=== PATIENT | male | born 1955 | race Caucasian/White ===

== ENCOUNTER 2023-02-15 17:26 | Outpatient (AMB) | payer MEDICARE, MEDICAID, SELFPAY ==
--- NOTE | 2023-02-15 17:43 | A.OFFPSYCH_ITS ---
Intake Intake Visit Reasons: Chronic schizophrenia HPI- Psychiatric Chief Complaint: Chronic schizophrenia Intake Note: Patient is referred for maintenance ECT he has been at the [facility] to [facility] unit for couple of years he does have a guardian in a treatment order. HPI Narrative: The patient was referred by the [facility], Dr. Celsa Jimenez as the patient is being discharged to [facility] facility will be under the psychiatric care of Dr. Romero and there is a recommendation to continue maintenance ECT treatment which has been every 2 weeks. Patient's guardian Thor Soria telephone [phone] was contacted and treatment order by the court including ECT was reviewed. The patient has been getting bitemporal ECT at [facility] by Dr. Porsha Cox call was placed to her but at this point have not received a call back but records have been reviewed from [facility]. It appears that the patient has been getting biweekly ECT since at least 01/14/2022. Patient has reportedly done quite well with these treatments and has had no adverse effects noted. The patient is a 67-year-old male with a history of schizophrenia and OCD apparently responded well for treatment of catatonia in past history with aggression and agitation prior to admission at the [facility]. His current medications include clozapine 250 mg at bedtime Depakote 500 mg twice a day fluoxetine 40 mg daily gabapentin 400 mg 3 times a day glycopyrrolate 2 mg at bedtime lorazepam 1 mg daily in the morning I 0.5 mg at bedtime and 2 mg q.12h p.r.n.. There are no known drug allergies. Patient reportedly has diagnosis of schizophrenia OCD vascular dementia Patient has been receiving bitemporal ECT he has been getting 60 mg of succinylcholine Brevital 80 mg Toradol 15 mg labetalol 5 mg p.r.n. during the procedure Patient did have some treatments with etomidate during Brevital shortage Past Psychiatric History: See patient is originally from [place] he was at a long-term care facility in [place] had then been hospitalized at a psychiatric hospital for number of months was unable to be stabilized M was referred to the [facility] for longer term care. The patient denies prior psychiatric care but is not a reliable historian Mental Status Exam Mental Status Exam Narrative: Mental Status Exam Narrative: Patient is somewhat flat in appearance sitting in a wheelchair. Appearance: Behavior: He is cooperative and verbal psychomotor: Sitting in a wheelchair no abnormal movements noted Speech: Slowed coherent Thought proccess slowed does answer questions linear Thought content: Or denies any difficulty with ECT unclear why he is in [place] unclear why he was hospitalized denies hallucinations hearing God or the devil people conspiring against him Mood: Flat okay Affect: Appropriate to mood constricted SI:denies HI:denies VH/AH:none Delusions: None noted Insight/judgment: Limited Memory/cog: Patient does know the year month day of the week president Unable or unwilling to explain reasons for hospitalizations and treatment Results Reviewed Results Reviewed: Chemistries from September unremarkable LFTs recently within normal limits EKG QTC 452 vitamin-D level decreased TSH mildly increased 4.5 Records reviewed from [facility] and records reviewed from [facility] ECT Will trying get their initial evaluation Assessment and Plan Assessment & Plan (1) Chronic schizophrenia: Code(s): F20.9 - Schizophrenia, unspecified Plan Patient with reported chronic schizophrenia OCD history catatonia that has done well with biweekly ECT. Patient has tolerated ECT well unable to get a clear history patient's brother consents to ongoing ECT there is a treatment order by the criminal judge Would trying get baseline history which the patient is unable to give call placed to psychiatrist at [facility] to try and coordinate care. Patient appears to have a history of treatment resistant psychosis with catatonia has done well with ECT. Will try schedule unclear there has been any attempt to taper over time no behavioral difficulties noted during this appointment patient reportedly has vascular dementia has difficulty with ambulation did have prior imaging however patient has tolerated regular biweekly ECT treatments at [facility] Counseling and coordination of Care Details: I spent [65] minutes reviewing the record, seeing the patient and documenting in the medical record. Extensive records were reviewed Counseling provided to the patient/caregiver as outlined below. Addressed patient/caregiver concerns regarding current medication regime including effective adherence. Addressed patient/caregiver concerns regarding diagnosis and prognosis including accuracy of diagnosis, prognosis over time, impact of diagnosis. Addressed patient/caregiver concerns regarding impact of recent stressors. [facility] Medical History (Updated 02/15/23 @ 18:01 by Fran Flanagan MD) Vascular dementia of acute onset with behavioral disturbance Social History: Patient grew up in [place] including [place]. He states his father was doctor his mother a a psychiatrist in his brother who is guardian is also his physician patient also has a sister. He has not worked for many years Substance History: Patient denies Trauma History: Patient denies Coding Level of Care Code New Pt Level 5 (52458) Diagnoses Chronic schizophrenia F20.9
== END 2023-02-15 17:27 | disposition home or self-care (01) ==
LOC: HO.HOP 17:26
PROVIDERS: Visit Provider Psychiatry & Neurology Psychiatry
DX: F20.9 Schizophrenia, unspecified (principal)
CPT/HCPCS: 99205

== ENCOUNTER → 2023-02-15 17:26 | Outpatient (BNVA) | payer MEDICARE, MEDICAID, SELFPAY | PROVIDERS: Visit Provider Psychiatry & Neurology Psychiatry | DX: F20.9 Schizophrenia, unspecified (principal) | CPT/HCPCS: 99202 ==

== ENCOUNTER 2023-02-19 06:15 | Day surgery (SDC) | payer OTHER, MEDICARE, MEDICAID, SELFPAY ==
[2023-02-19] VITALS (7 sets, daily range): BP systolic 148–165; BP diastolic 46–79; PULSE 86–92; RESP 16–18; TEMP 36.3–37.6; O2SAT 96–100; BMI 29.2; BMI 29.3
--- NOTE | 2023-02-19 | ECG_ITS ---
Test Reason : ongoing ect new pt on antipsychotics htn Blood Pressure : / mmHG Vent. Rate : 090 BPM Atrial Rate : 090 BPM P-R Int : 166 ms QRS Dur : 088 ms QT Int : 374 ms P-R-T Axes : 057 -68 054 degrees QTc Int : 457 ms Normal sinus rhythm Left axis deviation Abnormal ECG No previous ECGs available Referred By: Fran Flanagan Electronically Signed By:ASHOK WINTERS MD
--- NOTE | 2023-02-19 06:48 | HO.ANESPROP2 ---
[facility] Active Problems Active Problems: All Active Problems (Updated 02/18/23 @ 13:47 by Joy Mccall RN) Vascular dementia of acute onset with behavioral disturbance (Acute) Past Medical History Medical History (Updated 02/18/23 @ 13:47 by Joy Mccall RN) Back pain Constipation Gait instability Hyperlipidemia Overweight Schizophrenia Trimalleolar fracture Tubular adenoma Vascular dementia of acute onset with behavioral disturbance Family History Family history of problems with anesthesia: No Surgical History History of Problems with Anesthesia: No Social History Social History Are you DNR?: No Advance Directives: No Advance Directives Information Provided: Yes Meds Allergies Allergy/AdvReac Type Severity Reaction Status Date / Time No Known Allergies Allergy Verified 02/18/23 13:43 Active Medications: Current Medications Lactated Ringer's (Lr) 1,000 mls @ 50 mls/hr IVCONT .Q20H JANICE Home Medications Medication Instructions Recorded Confirmed Last Taken Type atorvastatin 10 mg tablet 10 mg PO DAILY 02/18/23 02/18/23 Unknown History clozapine 250 mg PO DAILY 02/18/23 02/18/23 Unknown History divalproex 500 mg tablet,extended 500 mg PO BID 02/18/23 02/18/23 Unknown History release 24 hr fluoxetine 40 mg capsule 40 mg PO DAILY 02/18/23 02/18/23 Unknown History gabapentin 400 mg tablet 800 mg PO TID 02/18/23 02/18/23 Unknown History glycopyrrolate 2 mg tablet 2 mg PO BID 02/18/23 02/18/23 Unknown History lorazepam 0.5 mg tablet 0.5 mg PO QPM 02/18/23 02/18/23 Unknown History lorazepam 1 mg tablet 1 mg PO QAM 02/18/23 02/18/23 Unknown History lorazepam 2 mg tablet 2 mg PO DAILY PRN Anxiety 02/18/23 02/18/23 Unknown History polyethylene glycol 3350 17 gram 17 g PO DAILY 02/18/23 02/18/23 Unknown History oral powder packet sennosides 8.6 mg tablet (senna) 8.6 mg PO DAILY 02/18/23 02/18/23 Unknown History Exam Exam Date and Time: February 19, 2023 0648 Height,Weight and Vital Signs: Height 5 ft 9 in Weight 89.904 kg Last Vital Signs Temp 97.4 F 07/28/23 06:23 Pulse 86 02/19/23 06:23 Resp 16 02/19/23 06:23 BP 148/79 H 02/19/23 06:23 Pulse Ox 98 02/19/23 06:23 O2 Del Method Room Air 02/19/23 06:23 Airway Mallampati Class: Patient Non-Cooperative TM Dist: >3cm Neck ROM: Full Heart: rrr Lungs: cta Assessment and Plan Assessment Anesthesia Assessment: Anesthesia Plan Discussed and Chart Reviewed Final Anesthetic Review Family History of Problems with Anesthesia: No History of Problems with Anesthesia: No NPO: Yes ASA Class: III Final Preanesthetic Review: No Changes in Pt Med Stat, Meds/Allgs Chart Reviewed and Consent Obtained/Reviewed Patient Risk: Intermediate Procedure Risk: Intermediate Anesthetic Plan Anesthetic Plan: GA Disposition: Standard PACU
--- NOTE | 2023-02-19 07:07 | MHC.SHP ---
Pre-Procedural Eval Section A Date of Service: 02/19/23 Changes since office visit: No Cold of Flu in the past 2 weeks, No New Medical Problems, No Changes in Medication and No Patient answered all questions The History & Physical has been completed within 30 days and I have reviewed it.: Yes Section B Chief Complaint: schizoaffective dx Details of Present Illness: recurrent psychosis getting ect [facility] Medical History: Significant History ([facility] ) History of Previous Operations: Relevant previous surgery/procedure and date(s) (ect) Allergies: Allergies Allergy/AdvReac Type Severity Reaction Status Date / Time No Known Allergies Allergy Verified 02/18/23 13:43 Review of Systems Sugical H&P ROS: Negative: Cardiovascular and Respiratory and Yes, Specify: Neurological (ambulation difficulties) Exam Surgical H&P Exam: Normal: Heart and Normal: Lungs Plan Diagnosis/Plan: Unchanged I have reviewed the history and physical and performed a pertinent physical examination on my patient. No changes have occurred unless specified. Time Spent With Patient Time: Total time managing care of this patient today ____ minutes.
--- NOTE | 2023-02-19 07:35 | P.PCN_ITS ---
ECT Procedure Note Diagnosis/Treatment Date of Service: 02/19/23 Diagnosis: Schizoaffective Disorder Current Treatment Number: 1 Treatment: Maintenance Interval Clinical Notes: See initial evaluation patient was originally referred for outpatient ECT by the [facility] he has been getting biweekly maintenance ECT at [facility]. Patient at . [facility] no medical contraindications history of catatonia and aggression schizoaffective disorder. Case discussed [place] Time: Total time managing care of this patient today ____ minutes. ECT Settings Device: THYMATRON DGx Electrode Placement: Bitemporal Program/Pulse Width: 0.50 Energy Percent: 100 Seizure Duration By EEG (in seconds): 54 Medications Administration General Anesthetic: Etomidate (18) Muscle Relaxant: Succinylcholine (80) Airway Management Airway Management: Bag Mask Ventilation Treatment Recommendations No Changes Recommended: No change Notes: Patient tolerated ECT well given bitemporal treatment was more verbal post treatment follow-up treatment March 05 Pt Tolerated Procedure w/o Issue: Yes
[2023-02-19 08:00] LABS: MANUAL DIFF FLAG NO
[2023-02-19 08:01] LABS: Basophils Percent Auto 0.3 % (0-2); Hematocrit 37.3 % (42.0-52.0); Hemoglobin 12.7 g/dl (14.0-18.0); Imm Gran Abs Auto 0.05 X10*3/uL (0.00-0.03); Imm Gran Pct Auto 0.8 % (0.0-0.4); Lymphocytes Absolute Auto 1.7 X10*3/uL (1.2-4.9); Lymphocytes Percent Auto 27.7 % (20-40); Mean Corpuscular Hemoglobin 33.6 pg (27.0-33.0); Mean Corpuscular Volume 98.7 fL (80.0-98.0); Mean Platelet Volume 9.4 fL (9.4-12.4); Monocytes Absolute Auto 0.6 X10*3/uL (0.1-1.2); Monocytes Percent Auto 9.3 % (2-11); Neutrophils Absolute Auto 3.7 x10*3/uL (2.0-8.3); Neutrophils Percent Auto 61.9 % (45-73); Platelet Count 135 X10*3/uL (160-400); Red Blood Count 3.78 X10*6/uL (4.60-5.80); Red Cell Distribution Width 12.6 % (11.0-16.0)
[2023-02-19 08:33] LABS: Alanine Aminotransferase 14 U/L (0-40); Albumin Level 3.6 g/dL (3.5-5.0); Alkaline Phosphatase 64 U/L (39-117); Anion Gap 14 (12-20); Aspartate Amino Transferase 17 U/L (5-37); Bilirubin Total 0.9 mg/dL (0.0-1.0); Blood Urea Nitrogen 20 mg/dL (9-16); Calcium 8.3 mg/dL (8.4-10.2); Carbon Dioxide 24 mmol/L (22-29); Chloride 107 mmol/L (96-108); Creatinine Clr Calc Pharmacy 93.1; Estimated Glomerular Filt Rate > 60; Glucose Random 139 mg/dL (60-115); Potassium 4.1 mmol/L (3.3-5.1); Sodium 141 mmol/L (135-145); Total Protein 6.9 g/dL (6.5-8.0)
[2023-02-19 08:37] LABS: TSH reflex Free T4 6.53 uIU/mL (0.32-4.0)
[2023-02-19 08:50] LABS: Folate 12.2 ng/mL (> or = 4.0); Vitamin B12 482 pg/mL (200-900)
[2023-02-19 09:23] LABS: Free T4 (Free Thyroxine) 0.94 ng/dL (0.71-1.85)
== END 2023-02-19 08:58 | disposition home or self-care (01) ==
PROVIDERS: PCP Emergency Medicine; Visit Provider Psychiatry & Neurology Psychiatry
PROC: (CPT 90870; principal; 2023-02-19 07:30)
DX: F25.9 Schizoaffective disorder, unspecified (principal); E03.8 Other specified hypothyroidism; I10 Essential (primary) hypertension; E78.5 Hyperlipidemia, unspecified; E66.9 Obesity, unspecified; Z68.31 Body mass index [BMI] 31.0-31.9, adult; K59.00 Constipation, unspecified; Z79.899 Other long term (current) drug therapy
CPT/HCPCS: 36415; 80053; 82607; 82746; 84439; 84443; 85025; 90870; 93005; J0330; J1642

== ENCOUNTER → 2023-02-19 06:15 | Outpatient (BNV) | payer MEDICARE, MEDICAID, SELFPAY | PROVIDERS: PCP Emergency Medicine; Visit Provider Psychiatry & Neurology Psychiatry | DX: F25.9 Schizoaffective disorder, unspecified (principal) | CPT/HCPCS: 90870 ==

== ENCOUNTER → 2023-02-19 07:35 | Outpatient (BNV) | payer MEDICARE, MEDICAID, SELFPAY | PROVIDERS: PCP Emergency Medicine; Visit Provider Internal Medicine Cardiovascular Disease | DX: I10 Essential (primary) hypertension (principal) | CPT/HCPCS: 93010 ==

== ENCOUNTER 2023-03-05 05:57 | Day surgery (SDC) | payer OTHER, MEDICARE, MEDICAID, SELFPAY ==
[2023-03-05] VITALS (8 sets, daily range): BP systolic 112–136; BP diastolic 60–92; PULSE 82–86; RESP 12–18; TEMP 36.2–37.4; O2SAT 93–98
--- NOTE | 2023-03-05 08:19 | MHC.SHP ---
Pre-Procedural Eval Section A Date of Service: 03/05/23 The patient is an INPATIENT: No Changes since office visit: No Cold of Flu in the past 2 weeks, No New Medical Problems and No Changes in Medication The History & Physical has been completed within 30 days and I have reviewed it.: Yes Section B Chief Complaint: depressive disorder Allergies: Allergies Allergy/AdvReac Type Severity Reaction Status Date / Time No Known Allergies Allergy Verified 02/18/23 13:43 Plan I have reviewed the history and physical and performed a pertinent physical examination on my patient. No changes have occurred unless specified. Time Spent With Patient Time: Total time managing care of this patient today ____ minutes.
--- NOTE | 2023-03-05 08:19 | HO.ECTPROC ---
ECT Procedure Note Diagnosis/Treatment Date of Service: 03/05/23 Diagnosis: Schizoaffective Disorder Previous ECT Date: 02/19/23 Treatment: Maintenance Interval Clinical Notes: pt withdrawn dysphoric on arrival mostly mute Time: Total time managing care of this patient today ____ minutes. ECT Settings Device: THYMATRON DGx Electrode Placement: Bitemporal Program/Pulse Width: 0.50 Energy Percent: 100 Seizure Duration By EEG (in seconds): 38 Medications Administration General Anesthetic: Etomidate (18) Muscle Relaxant: Succinylcholine (80) Airway Management Airway Management: LMA Treatment Recommendations Notes: lma used f/u tx 2 weeks Pt Tolerated Procedure w/o Issue: Yes
--- NOTE | 2023-03-05 08:22 | HO.ANESPROP2 ---
[facility] Active Problems Active Problems: All Active Problems (Updated 02/18/23 @ 13:47 by Joy Mccall, NORBERT) Vascular dementia of acute onset with behavioral disturbance (Acute) Past Medical History Medical History (Updated 02/18/23 @ 13:47 by Joy Mccall RN) Back pain Constipation Gait instability Hyperlipidemia Overweight Schizophrenia Trimalleolar fracture Tubular adenoma Vascular dementia of acute onset with behavioral disturbance Family History Family history of problems with anesthesia: No Surgical History History of Problems with Anesthesia: No Social History Social History Advance Directives: No Advance Directives Information Provided: Yes Meds Allergies Allergy/AdvReac Type Severity Reaction Status Date / Time No Known Allergies Allergy Verified 02/18/23 13:43 Home Medications Medication Instructions Recorded Confirmed Last Taken Type atorvastatin 10 mg tablet 10 mg PO DAILY 02/18/23 02/18/23 Unknown History clozapine 250 mg PO DAILY 02/18/23 02/18/23 Unknown History divalproex 500 mg tablet,extended 500 mg PO BID 02/18/23 02/18/23 Unknown History release 24 hr fluoxetine 40 mg capsule 40 mg PO DAILY 02/18/23 02/18/23 Unknown History gabapentin 400 mg tablet 800 mg PO TID 02/18/23 02/18/23 Unknown History glycopyrrolate 2 mg tablet 2 mg PO BID 02/18/23 02/18/23 Unknown History lorazepam 0.5 mg tablet 0.5 mg PO QPM 02/18/23 02/18/23 Unknown History lorazepam 1 mg tablet 1 mg PO QAM 02/18/23 02/18/23 Unknown History lorazepam 2 mg tablet 2 mg PO DAILY PRN Anxiety 02/18/23 02/18/23 Unknown History polyethylene glycol 3350 17 gram 17 g PO DAILY 02/18/23 02/18/23 Unknown History oral powder packet sennosides 8.6 mg tablet (senna) 8.6 mg PO DAILY 02/18/23 02/18/23 Unknown History Exam Exam Date and Time: March 05, 2023821 Height,Weight and Vital Signs: Last Vital Signs Temp 97.1 F 03/05/23 06:47 Pulse 83 03/05/23 06:47 Resp 12 03/05/23 06:47 BP 112/62 03/05/23 06:47 Pulse Ox 95 03/05/23 06:47 O2 Del Method Room Air 03/05/23 06:47 Airway Mallampati Class: III TM Dist: >3cm Neck ROM: Full Assessment and Plan Assessment Anesthesia Assessment: Anesthesia Plan Discussed and Chart Reviewed Final Anesthetic Review Family History of Problems with Anesthesia: No History of Problems with Anesthesia: No NPO: Yes ASA Class: III Final Preanesthetic Review: No Changes in Pt Med Stat, Meds/Allgs Chart Reviewed, Consent Obtained/Reviewed and Anes Risks/Benef Reviewed Patient Risk: Intermediate Procedure Risk: Intermediate Anesthetic Plan Anesthetic Plan: GA Disposition: Standard PACU
--- NOTE | 2023-03-05 09:12 | HO.ANESPROP2 ---
[facility] Active Problems Active Problems: All Active Problems (Updated 02/18/23 @ 13:47 by Joy Mccall RN) Vascular dementia of acute onset with behavioral disturbance (Acute) Past Medical History Medical History (Updated 02/18/23 @ 13:47 by Joy Mccall RN) Back pain Constipation Gait instability Hyperlipidemia Overweight Schizophrenia Trimalleolar fracture Tubular adenoma Vascular dementia of acute onset with behavioral disturbance Family History Family history of problems with anesthesia: No Surgical History History of Problems with Anesthesia: No Social History Social History Advance Directives: No Advance Directives Information Provided: Yes Meds Allergies Allergy/AdvReac Type Severity Reaction Status Date / Time No Known Allergies Allergy Verified 02/18/23 13:43 Active Medications: Current Medications Ondansetron HCl (Ondansetron Hcl 4 Mg/2 Ml Vial) 4 mg IVPUSH ONCE PRN PRN Reason: Nausea and Vomiting Home Medications Medication Instructions Recorded Confirmed Last Taken Type atorvastatin 10 mg tablet 10 mg PO DAILY 02/18/23 02/18/23 Unknown History clozapine 250 mg PO DAILY 02/18/23 02/18/23 Unknown History divalproex 500 mg tablet,extended 500 mg PO BID 02/18/23 02/18/23 Unknown History release 24 hr fluoxetine 40 mg capsule 40 mg PO DAILY 02/18/23 02/18/23 Unknown History gabapentin 400 mg tablet 800 mg PO TID 02/18/23 02/18/23 Unknown History glycopyrrolate 2 mg tablet 2 mg PO BID 02/18/23 02/18/23 Unknown History lorazepam 0.5 mg tablet 0.5 mg PO QPM 02/18/23 02/18/23 Unknown History lorazepam 1 mg tablet 1 mg PO QAM 02/18/23 02/18/23 Unknown History lorazepam 2 mg tablet 2 mg PO DAILY PRN Anxiety 02/18/23 02/18/23 Unknown History polyethylene glycol 3350 17 gram 17 g PO DAILY 02/18/23 02/18/23 Unknown History oral powder packet sennosides 8.6 mg tablet (senna) 8.6 mg PO DAILY 02/18/23 02/18/23 Unknown History Exam Exam Date and Time: March 05, 2023 0912 Height,Weight and Vital Signs: Last Vital Signs Temp 99.3 F 03/05/23 08:46 Pulse 84 03/05/23 09:01 Resp 17 03/05/23 09:01 BP 129/60 03/05/23 09:01 Pulse Ox 96 03/05/23 09:01 O2 Del Method Nasal Cannula with Capnography 03/05/23 09:01 O2 Flow Rate 2 03/05/23 09:01 Airway Mallampati Class: III TM Dist: >3cm Neck ROM: Full Assessment and Plan Assessment Anesthesia Assessment: Anesthesia Plan Discussed and Chart Reviewed Final Anesthetic Review Family History of Problems with Anesthesia: No History of Problems with Anesthesia: No NPO: Yes ASA Class: III Final Preanesthetic Review: No Changes in Pt Med Stat, Meds/Allgs Chart Reviewed, Consent Obtained/Reviewed and Anes Risks/Benef Reviewed Patient Risk: Intermediate Procedure Risk: Intermediate Anesthetic Plan Anesthetic Plan: GA Disposition: Standard PACU
--- NOTE | 2023-03-05 21:58 | HO.ECTPROC ---
ECT Procedure Note Diagnosis/Treatment Date of Service: 03/05/23 Diagnosis: Schizoaffective Disorder Previous ECT Date: 02/19/23 Treatment: Maintenance Interval Clinical Notes: pt withdrawn flat mostly mute when seen Time: Total time managing care of this patient today ____ minutes. ECT Settings Device: THYMATRON DGx Electrode Placement: Bitemporal Program/Pulse Width: 0.50 Energy Percent: 100 Seizure Duration By EEG (in seconds): 54 Medications Administration General Anesthetic: Etomidate (18) Muscle Relaxant: Succinylcholine (80) Airway Management Airway Management: LMA Treatment Recommendations No Changes Recommended: No change Notes: f/u 2 weeks is in tx [facility] Pt Tolerated Procedure w/o Issue: Yes
== END 2023-03-05 09:52 | disposition home or self-care (01) ==
PROVIDERS: PCP Emergency Medicine; Visit Provider Psychiatry & Neurology Psychiatry
PROC: (CPT 90870; principal; 2023-03-05 08:00)
DX: Z79.899 Other long term (current) drug therapy (principal); F01.511 Vascular dementia, unspecified severity, with agitation; F42.9 Obsessive-compulsive disorder, unspecified; F25.9 Schizoaffective disorder, unspecified
CPT/HCPCS: 90870; J0330; J1642

== ENCOUNTER → 2023-03-05 05:57 | Outpatient (BNV) | payer MEDICARE, MEDICAID, SELFPAY | PROVIDERS: PCP Emergency Medicine; Visit Provider Psychiatry & Neurology Psychiatry | DX: F33.3 Major depressive disorder, recurrent, severe with psychotic symptoms (principal) | CPT/HCPCS: 90870 ==

== ENCOUNTER → 2023-03-19 12:00 | Day surgery (SDC) | payer MEDICARE, MEDICAID, SELFPAY ==
[2023-03-19] VITALS (7 sets, daily range): BP systolic 150–184; BP diastolic 70–89; PULSE 86–89; RESP 12–22; TEMP 36.7–37; O2SAT 96–100; BMI 30.7
--- NOTE | 2023-03-19 12:50 | HO.ANESPROP2 ---
HPI - Anesthesia Eval Consult details Narrative: Schizzoaffective Disorder PMFSH Active Problems Active Problems: All Active Problems (Updated 02/18/23 @ 13:47 by Joy Mccall RN) Vascular dementia of acute onset with behavioral disturbance (Acute) Past Medical History Medical History Back pain Constipation Gait instability Hyperlipidemia Overweight Schizophrenia Trimalleolar fracture Tubular adenoma Vascular dementia of acute onset with behavioral disturbance Family History Family history of problems with anesthesia: No Surgical History History of Problems with Anesthesia: No Meds Allergies Allergy/AdvReac Type Severity Reaction Status Date / Time No Known Allergies Allergy Verified 02/18/23 13:43 Home Medications Medication Instructions Recorded Confirmed Last Taken Type atorvastatin 10 mg tablet 10 mg PO DAILY 02/18/23 02/18/23 Unknown History clozapine 250 mg PO DAILY 02/18/23 02/18/23 Unknown History divalproex 500 mg tablet,extended 500 mg PO BID 02/18/23 02/18/23 Unknown History release 24 hr fluoxetine 40 mg capsule 40 mg PO DAILY 02/18/23 02/18/23 Unknown History gabapentin 400 mg tablet 800 mg PO TID 02/18/23 02/18/23 Unknown History glycopyrrolate 2 mg tablet 2 mg PO BID 02/18/23 02/18/23 Unknown History lorazepam 0.5 mg tablet 0.5 mg PO QPM 02/18/23 02/18/23 Unknown History lorazepam 1 mg tablet 1 mg PO QAM 02/18/23 02/18/23 Unknown History lorazepam 2 mg tablet 2 mg PO DAILY PRN Anxiety 02/18/23 02/18/23 Unknown History polyethylene glycol 3350 17 gram 17 g PO DAILY 02/18/23 02/18/23 Unknown History oral powder packet sennosides 8.6 mg tablet (senna) 8.6 mg PO DAILY 02/18/23 02/18/23 Unknown History Exam Exam Date and Time: March 19, 2023 1250 Airway Mallampati Class: II TM Dist: >3cm Neck ROM: Full Loose/Missing/Broken Teeth: Yes Heart: [id number] Lungs: cta b/l Assessment and Plan Assessment Anesthesia Assessment: Anesthesia Plan Discussed and Chart Reviewed Final Anesthetic Review Family History of Problems with Anesthesia: No History of Problems with Anesthesia: No NPO: Yes ASA Class: III Final Preanesthetic Review: No Changes in Pt Med Stat, Meds/Allgs Chart Reviewed, Consent Obtained/Reviewed and Anes Risks/Benef Reviewed Patient Risk: Intermediate Procedure Risk: Intermediate Assessment/Block/Sedation in SS: Assess/Block/Sedation-SS Anesthetic Plan Anesthetic Plan: GA and Agree w/ Assess. and Plan Disposition: Standard PACU
--- NOTE | 2023-03-19 13:37 | MHC.SHP ---
Pre-Procedural Eval Section A Date of Service: 03/19/23 The patient is an INPATIENT: No Changes since office visit: Yes Cold of Flu in the past 2 weeks, Yes New Medical Problems, Yes Changes in Medication and Yes Patient answered all questions The History & Physical has been completed within 30 days and I have reviewed it.: Yes Section B Chief Complaint: depressive disorder Details of Present Illness: Patient non-verbal Relevant Social History: None Present Medications: None Medical History: No relevant PMH History of Previous Operations: No relevant previous surgery Allergies: Allergies Allergy/AdvReac Type Severity Reaction Status Date / Time No Known Allergies Allergy Verified 02/18/23 13:43 Review of Systems Sugical H&P ROS: Negative: Constitution, Cardiovascular, Respiratory, Neurological, Psychiatric, Hem-Onc, Allergic/Immunologic, Gastrointestinal, Genitourinary, Musculoskeletal, Integumentary, Endocrine and Eyes/Ears/Nose/Throat Exam Surgical H&P Exam: Normal: HEENT, Normal: Heart, Normal: Lungs, Normal: Extremities, Normal: Abdomen, Normal: Skin and Normal: Neurological Plan Diagnosis/Plan: Unchanged I have reviewed the history and physical and performed a pertinent physical examination on my patient. No changes have occurred unless specified. Time Spent With Patient Time: Total time managing care of this patient today __15__ minutes.
--- NOTE | 2023-03-19 13:51 | HO.ECTPROC ---
ECT Procedure Note Diagnosis/Treatment Date of Service: 03/19/23 Diagnosis: Schizoaffective Disorder Previous ECT Date: 03/05/23 Treatment: Maintenance Interval Clinical Notes: The patient has been selectively mute, refused to engage Time: Total time managing care of this patient today ____ minutes. ECT Settings Device: THYMATRON DGx Electrode Placement: Bitemporal Program/Pulse Width: 0.50 Energy Percent: 100 Seizure Duration By EEG (in seconds): 29 Medications Administration General Anesthetic: Etomidate (18) Muscle Relaxant: Succinylcholine (80) Ancillary Medications Analgesics: Torodol - Pre ECT Anti-emetics: Zofran - Pre ECT Airway Management Airway Management: Bag Mask Ventilation Treatment Recommendations No Changes Recommended: No change Pt Tolerated Procedure w/o Issue: Yes
== END | disposition home or self-care (01) ==
PROVIDERS: PCP Emergency Medicine; Visit Provider Psychiatry & Neurology Psychiatry
PROC: (CPT 90870; principal; 2023-03-19 15:30)
DX: F25.9 Schizoaffective disorder, unspecified (principal); F94.0 Selective mutism; E78.5 Hyperlipidemia, unspecified; F01.511 Vascular dementia, unspecified severity, with agitation; R26.89 Other abnormalities of gait and mobility; Z99.89 Dependence on other enabling machines and devices; Z79.899 Other long term (current) drug therapy
CPT/HCPCS: 90870; J0330

== ENCOUNTER → 2023-03-19 15:30 | Outpatient (BNV) | payer MEDICARE, MEDICAID, SELFPAY | PROVIDERS: PCP Emergency Medicine; Visit Provider Psychiatry & Neurology Psychiatry | DX: F33.3 Major depressive disorder, recurrent, severe with psychotic symptoms (principal) | CPT/HCPCS: 90870 ==

== ENCOUNTER 2023-04-07 06:14 | Day surgery (SDC) | payer MEDICARE, MEDICAID, SELFPAY ==
[2023-04-07 06:54] VITALS: BP 121/75; PULSE 84; RESP 18; TEMP 36.1; O2SAT 97
--- NOTE | 2023-04-07 08:51 | P.HPSUR_ITS ---
Pre-Procedural Eval Section A Date of Service: 04/07/23 The patient is an INPATIENT: No Changes since office visit: No Cold of Flu in the past 2 weeks, No New Medical Problems, No Changes in Medication and No Patient answered all questions The History & Physical has been completed within 30 days and I have reviewed it.: No Section B Chief Complaint: depression Details of Present Illness: Patient non-verbal Relevant Social History: None Present Medications: None Medical History: No relevant PMH History of Previous Operations: No relevant previous surgery Allergies: Allergies Allergy/AdvReac Type Severity Reaction Status Date / Time No Known Allergies Allergy Verified 02/18/23 13:43 Review of Systems Sugical H&P ROS: Negative: Constitution, Cardiovascular, Respiratory, Neurologi verito, Psychiatric, Hem-Onc, Allergic/Immunologic, Gastrointestinal, Genitourinary, Musculoskeletal, Integumentary, Endocrine and Eyes/Ears/Nose/Throat Exam Surgical H&P Exam: Normal: Heart (rr) and Normal: Lungs (clear) Plan Diagnosis/Plan: Unchanged I have reviewed the history and physical and performed a pertinent physical examination on my patient. No changes have occurred unless specified. Time Spent With Patient Time: Total time managing care of this patient today ____ minutes.
[2023-04-07 08:53] VITALS: BMI 30.4
--- NOTE | 2023-04-07 08:53 | HO.ECTPROC ---
ECT Procedure Note Diagnosis/Treatment Date of Service: 04/07/23 Diagnosis: Schizoaffective Disorder Previous ECT Date: 03/19/23 Treatment: Maintenance Interval Clinical Notes: The patient minimally verbal states feels ok more withdrawn irritable pos oral td noted Time: Total time managing care of this patient today _30___ minutes. ECT Settings Device: THYMATRON DGx Electrode Placement: Bitemporal Program/Pulse Width: 0.50 Energy Percent: 100 Seizure Duration By EEG (in seconds): 38 Medications Administration General Anesthetic: Etomidate (18) Muscle Relaxant: Succinylcholine (80) Airway Management Airway Management: Bag Mask Ventilation Treatment Recommendations No Changes Recommended: No change Pt Tolerated Procedure w/o Issue: Yes
--- NOTE | 2023-04-07 09:02 | P.CONAN_ITS ---
[facility] Active Problems Active Problems: All Active Problems (Updated 02/18/23 @ 13:47 by Joy Mccall RN) Vascular dementia of acute onset with behavioral disturbance (Acute) Past Medical History Medical History Back pain Constipation Gait instability Hyperlipidemia Overweight Schizophrenia Trimalleolar fracture Tubular adenoma Vascular dementia of acute onset with behavioral disturbance Family History Family history of problems with anesthesia: No Surgical History History of Problems with Anesthesia: No Social History Social History Advance Directives: No Advance Directives Information Provided: Yes Meds Allergies Allergy/AdvReac Type Severity Reaction Status Date / Time No Known Allergies Allergy Verified 02/18/23 13:43 Active Medications: Current Medications Lactated Ringer's (Lr) 1,000 mls @ 50 mls/hr IVCONT .Q20H JANICE Home Medications Medication Instructions Recorded Confirmed Last Taken Type atorvastatin 10 mg tablet 10 mg PO DAILY 02/18/23 02/18/23 Unknown History clozapine 250 mg PO DAILY 02/18/23 02/18/23 Unknown History divalproex 500 mg tablet,extended 500 mg PO BID 02/18/23 02/18/23 Unknown History release 24 hr fluoxetine 40 mg capsule 40 mg PO DAILY 02/18/23 02/18/23 Unknown History gabapentin 400 mg tablet 800 mg PO TID 02/18/23 02/18/23 Unknown History glycopyrrolate 2 mg tablet 2 mg PO BID 02/18/23 02/18/23 Unknown History lorazepam 0.5 mg tablet 0.5 mg PO QPM 02/18/23 02/18/23 Unknown History lorazepam 1 mg tablet 1 mg PO QAM 02/18/23 02/18/23 Unknown History lorazepam 2 mg tablet 2 mg PO DAILY PRN Anxiety 02/18/23 02/18/23 Unknown History polyethylene glycol 3350 17 gram 17 g PO DAILY 02/18/23 02/18/23 Unknown History oral powder packet sennosides 8.6 mg tablet (senna) 8.6 mg PO DAILY 02/18/23 02/18/23 Unknown History Exam Exam Date and Time: April 07, 2023 0902 Height,Weight and Vital Signs: Height 5 ft 8 in Weight 90.718 kg Last Vital Signs Temp 96.9 F 04/07/23 06:54 Pulse 84 04/07/23 06:54 Resp 18 04/07/23 06:54 BP 121/75 04/07/23 06:54 Pulse Ox 97 04/07/23 06:54 O2 Del Method Room Air 04/07/23 06:54 Airway Mallampati Class: II (missing multiple, poor dentition) TM Dist: >3cm Neck ROM: Full Heart: rrr Lungs: cta Assessment and Plan Assessment Anesthesia Assessment: Anesthesia Plan Discussed and Chart Reviewed Final Anesthetic Review Family History of Problems with Anesthesia: No History of Problems with Anesthesia: No NPO: Yes ASA Class: III Final Preanesthetic Review: No Changes in Pt Med Stat, Meds/Allgs Chart Reviewed and Consent Obtained/Reviewed Patient Risk: Intermediate Procedure Risk: Intermediate Anesthetic Plan Anesthetic Plan: GA Disposition: Standard PACU
[2023-04-07 09:23] VITALS: BP 162/66; PULSE 89; RESP 16; TEMP 37; O2SAT 98
[2023-04-07 09:28] VITALS: BP 153/79; PULSE 89; RESP 20; O2SAT 96
[2023-04-07 09:33] VITALS: BP 134/48; PULSE 88; RESP 20; O2SAT 94
[2023-04-07 09:38] VITALS: BP 133/42; PULSE 87; RESP 20; O2SAT 94
[2023-04-07 09:53] VITALS: BP 126/57; PULSE 87; RESP 20; O2SAT 95
== END 2023-04-07 10:43 | disposition home or self-care (01) ==
PROVIDERS: PCP Emergency Medicine; Visit Provider Psychiatry & Neurology Psychiatry
PROC: (CPT 90870; principal; 2023-04-07 15:00)
DX: F25.1 Schizoaffective disorder, depressive type (principal); F01.511 Vascular dementia, unspecified severity, with agitation; R47.9 Unspecified speech disturbances; E78.5 Hyperlipidemia, unspecified; R26.89 Other abnormalities of gait and mobility; Z79.899 Other long term (current) drug therapy
CPT/HCPCS: 90870; J0330; J1642

== ENCOUNTER → 2023-04-07 06:14 | Outpatient (BNV) | payer MEDICARE, MEDICAID, SELFPAY | PROVIDERS: PCP Emergency Medicine; Visit Provider Psychiatry & Neurology Psychiatry | DX: F33.3 Major depressive disorder, recurrent, severe with psychotic symptoms (principal) | CPT/HCPCS: 90870 ==

== ENCOUNTER 2023-05-05 06:48 | Day surgery (SDC) | payer MEDICARE, MEDICAID, SELFPAY ==
--- NOTE | 2023-05-05 07:01 | MHC.SHP ---
Pre-Procedural Eval Section A Date of Service: 05/05/23 The patient is an INPATIENT: No Changes since office visit: No Cold of Flu in the past 2 weeks, No New Medical Problems, No Changes in Medication and No Patient answered all questions The History & Physical has been completed within 30 days and I have reviewed it.: No Section B Chief Complaint: depression Details of Present Illness: Patient non-verbal Relevant Social History: None Present Medications: None Medical History: No relevant PMH History of Previous Operations: No relevant previous surgery Allergies: Allergies Allergy/AdvReac Type Severity Reaction Status Date / Time No Known Allergies Allergy Verified 02/18/23 13:43 Review of Systems Sugical H&P ROS: Negative: Constitution, Cardiovascular, Respiratory, Neurological, Psychiatric, Hem-Onc, Allergic/Immunologic, Gastrointestinal, Genitourinary, Musculoskeletal, Integumentary, Endocrine and Eyes/Ears/Nose/Throat Exam Surgical H&P Exam: Normal: Heart (rr) and Normal: Lungs (clear) Plan Diagnosis/Plan: Unchanged I have reviewed the history and physical and performed a pertinent physical examination on my patient. No changes have occurred unless specified. Time Spent With Patient Time: Total time managing care of this patient today ____ minutes.
--- NOTE | 2023-05-05 07:02 | HO.ECTPROC ---
ECT Procedure Note Diagnosis/Treatment Date of Service: 05/07/23 Diagnosis: Schizoaffective Disorder Previous ECT Date: 04/07/23 Treatment: Maintenance Interval Clinical Notes: The patient minimally verbal states feels ok more withdrawn irritable pos oral td noted Time: Total time managing care of this patient today ____ minutes. ECT Settings Device: THYMATRON DGx Electrode Placement: Bitemporal Program/Pulse Width: 0.50 Energy Percent: 100 Seizure Duration By EEG (in seconds): 37 Medications Administration General Anesthetic: Etomidate (18) Muscle Relaxant: Succinylcholine (80) Airway Management Airway Management: Bag Mask Ventilation Treatment Recommendations No Changes Recommended: No change Notes: f/u 2 weeks Pt Tolerated Procedure w/o Issue: Yes
--- NOTE | 2023-05-05 07:05 | HO.ANESPROP2 ---
[facility] Active Problems Active Problems: All Active Problems (Updated 02/18/23 @ 13:47 by Joy Mccall RN) Vascular dementia of acute onset with behavioral disturbance (Acute) Past Medical History Medical History Back pain Constipation Gait instability Hyperlipidemia Overweight Schizophrenia Trimalleolar fracture Tubular adenoma Vascular dementia of acute onset with behavioral disturbance Family History Family history of problems with anesthesia: No Surgical History History of Problems with Anesthesia: No Social History Social History Advance Directives: No Advance Directives Information Provided: Yes Meds Allergies Allergy/AdvReac Type Severity Reaction Status Date / Time No Known Allergies Allergy Verified 02/18/23 13:43 Home Medications Medication Instructions Recorded Confirmed Last Taken Type atorvastatin 10 mg tablet 10 mg PO DAILY 02/18/23 02/18/23 Unknown History clozapine 250 mg PO DAILY 02/18/23 02/18/23 Unknown History divalproex 500 mg tablet,extended 500 mg PO BID 02/18/23 02/18/23 Unknown History release 24 hr fluoxetine 40 mg capsule 40 mg PO DAILY 02/18/23 02/18/23 Unknown History gabapentin 400 mg tablet 800 mg PO TID 02/18/23 02/18/23 Unknown History glycopyrrolate 2 mg tablet 2 mg PO BID 02/18/23 02/18/23 Unknown History lorazepam 0.5 mg tablet 0.5 mg PO QPM 02/18/23 02/18/23 Unknown History lorazepam 1 mg tablet 1 mg PO QAM 02/18/23 02/18/23 Unknown History lorazepam 2 mg tablet 2 mg PO DAILY PRN Anxiety 02/18/23 02/18/23 Unknown History polyethylene glycol 3350 17 gram 17 g PO DAILY 02/18/23 02/18/23 Unknown History oral powder packet sennosides 8.6 mg tablet (senna) 8.6 mg PO DAILY 02/18/23 02/18/23 Unknown History Exam Exam Date and Time: May 05, 2023 07 Airway Mallampati Class: II (denies anything loose, one extraction) TM Dist: >3cm Neck ROM: Full Heart: rrr Lungs: cta Assessment and Plan Assessment Anesthesia Assessment: Anesthesia Plan Discussed and Chart Reviewed Final Anesthetic Review Family History of Problems with Anesthesia: No History of Problems with Anesthesia: No NPO: Yes ASA Class: III Final Preanesthetic Review: No Changes in Pt Med Stat, Meds/Allgs Chart Reviewed and Consent Obtained/Reviewed Patient Risk: Intermediate Procedure Risk: Intermediate Anesthetic Plan Anesthetic Plan: GA Disposition: Standard PACU
[2023-05-05 07:25] VITALS: BP 188/99; PULSE 86; RESP 18; TEMP 36.4; O2SAT 100
[2023-05-05 07:30] VITALS: BP 162/87; PULSE 84; RESP 21; O2SAT 100
[2023-05-05 07:35] VITALS: BP 153/82; PULSE 84; RESP 23; O2SAT 100
[2023-05-05 07:40] VITALS: BP 160/81; PULSE 82; RESP 23; O2SAT 96
[2023-05-05 07:55] VITALS: BP 171/89; PULSE 80; RESP 20; TEMP 36.3; O2SAT 96
[2023-05-05 08:10] VITALS: BP 152/91; PULSE 80; RESP 18; TEMP 36.4; O2SAT 95
== END 2023-05-05 09:57 | disposition home or self-care (01) ==
PROVIDERS: PCP Emergency Medicine; Visit Provider Psychiatry & Neurology Psychiatry
PROC: (CPT 90870; principal; 2023-05-05 07:30)
DX: F25.9 Schizoaffective disorder, unspecified (principal); F01.518 Vascular dementia, unspecified severity, with other behavioral disturbance; R26.89 Other abnormalities of gait and mobility; E78.5 Hyperlipidemia, unspecified; Z79.899 Other long term (current) drug therapy
CPT/HCPCS: 90870; J0330; J1642

== ENCOUNTER → 2023-05-05 06:48 | Outpatient (BNV) | payer MEDICARE, MEDICAID, SELFPAY | PROVIDERS: PCP Emergency Medicine; Visit Provider Psychiatry & Neurology Psychiatry | DX: F33.3 Major depressive disorder, recurrent, severe with psychotic symptoms (principal) | CPT/HCPCS: 90870 ==

== ENCOUNTER 2023-05-19 05:57 | Day surgery (SDC) | payer MEDICARE, MEDICAID, SELFPAY ==
[2023-05-19] VITALS (7 sets, daily range): BP systolic 125–169; BP diastolic 57–76; PULSE 79–89; RESP 13–21; TEMP 36.1–36.6; O2SAT 96–100; BMI 29.2
--- NOTE | 2023-05-19 06:50 | P.CONAN_ITS ---
[facility] Active Problems Active Problems: All Active Problems (Updated 02/18/23 @ 13:47 by Joy Mccall RN) Vascular dementia of acute onset with behavioral disturbance (Acute) Past Medical History Medical History Back pain Constipation Gait instability Hyperlipidemia Overweight Schizophrenia Trimalleolar fracture Tubular adenoma Vascular dementia of acute onset with behavioral disturbance Family History Family history of problems with anesthesia: No Surgical History History of Problems with Anesthesia: No Social History Social History Advance Directives: No Advance Directives Information Provided: Yes Meds Allergies Allergy/AdvReac Type Severity Reaction Status Date / Time No Known Allergies Allergy Verified 02/18/23 13:43 Home Medications Medication Instructions Recorded Confirmed Last Taken Type atorvastatin 10 mg tablet 10 mg PO DAILY 02/18/23 02/18/23 Unknown History clozapine 250 mg PO DAILY 02/18/23 02/18/23 Unknown History divalproex 500 mg tablet,extended 500 mg PO BID 02/18/23 02/18/23 Unknown History release 24 hr fluoxetine 40 mg capsule 40 mg PO DAILY 02/18/23 02/18/23 Unknown History gabapentin 400 mg tablet 800 mg PO TID 02/18/23 02/18/23 Unknown History glycopyrrolate 2 mg tablet 2 mg PO BID 02/18/23 02/18/23 Unknown History lorazepam 0.5 mg tablet 0.5 mg PO QPM 02/18/23 02/18/23 Unknown History lorazepam 1 mg tablet 1 mg PO QAM 02/18/23 02/18/23 Unknown History lorazepam 2 mg tablet 2 mg PO DAILY PRN Anxiety 02/18/23 02/18/23 Unknown History polyethylene glycol 3350 17 gram 17 g PO DAILY 02/18/23 02/18/23 Unknown History oral powder packet sennosides 8.6 mg tablet (senna) 8.6 mg PO DAILY 02/18/23 02/18/23 Unknown History Exam Exam Date and Time: May 19, 2023 0650 Height,Weight and Vital Signs: Height 5 ft 9 in Weight 89.811 kg Last Vital Signs Temp 97 F 05/19/23 06:23 Pulse 79 05/19/23 06:23 Resp 21 H 05/19/23 06:23 BP 125/68 05/19/23 06:23 Pulse Ox 96 05/19/23 06:23 O2 Del Method Room Air 05/19/23 06:23 Airway Mallampati Class: II TM Dist: >3cm Neck ROM: Full Heart: rrr Lungs: cta Assessment and Plan Assessment Anesthesia Assessment: Anesthesia Plan Discussed and Chart Reviewed Final Anesthetic Review Family History of Problems with Anesthesia: No History of Problems with Anesthesia: No NPO: Yes ASA Class: III Final Preanesthetic Review: No Changes in Pt Med Stat, Meds/Allgs Chart Reviewed and Consent Obtained/Reviewed Patient Risk: Intermediate Procedure Risk: Intermediate Anesthetic Plan Anesthetic Plan: GA Disposition: Standard PACU
--- NOTE | 2023-05-19 06:59 | P.HPSUR_ITS ---
Pre-Procedural Eval Section A Date of Service: 05/19/23 The patient is an INPATIENT: No Changes since office visit: No Cold of Flu in the past 2 weeks, No New Medical Problems, No Changes in Medication and No Patient answered all questions The History & Physical has been completed within 30 days and I have reviewed it.: No Section B Chief Complaint: depression Details of Present Illness: Patient non-verbal Relevant Social History: None Present Medications: None Medical History: No relevant PMH History of Previous Operations: No relevant previous surgery Allergies: Allergies Allergy/AdvReac Type Severity Reaction Status Date / Time No Known Allergies Allergy Verified 02/18/23 13:43 Review of Systems Sugical H&P ROS: Negative: Constitution, Cardiovascular, Respiratory, Neurologi verito, Psychiatric, Hem-Onc, Allergic/Immunologic, Gastrointestinal, Genitourinary, Musculoskeletal, Integumentary, Endocrine and Eyes/Ears/Nose/Throat Exam Surgical H&P Exam: Normal: Heart (rr) and Normal: Lungs (clear) Plan Diagnosis/Plan: Unchanged I have reviewed the history and physical and performed a pertinent physical examination on my patient. No changes have occurred unless specified. Time Spent With Patient Time: Total time managing care of this patient today ____ minutes.
--- NOTE | 2023-05-19 07:13 | HO.ECTPROC ---
ECT Procedure Note Diagnosis/Treatment Date of Service: 05/19/23 Diagnosis: Schizoaffective Disorder Treatment: Maintenance Interval Clinical Notes: seems more stable coates affect Time: Total time managing care of this patient today ____ minutes. ECT Settings Device: THYMATRON DGx Program/Pulse Width: 0.50 Energy Percent: 100 Seizure Duration By EEG (in seconds): 37 Medications Administration General Anesthetic: Etomidate (18) Muscle Relaxant: Succinylcholine (100) Ancillary Medications Miscillaneous Medications: Flumazenil (500) Airway Management Airway Management: Bag Mask Ventilation Treatment Recommendations No Changes Recommended: No change Notes: [facility] Pt Tolerated Procedure w/o Issue: Yes
== END 2023-05-19 09:10 | disposition home or self-care (01) ==
PROVIDERS: PCP Emergency Medicine; Visit Provider Psychiatry & Neurology Psychiatry
PROC: (CPT 90870; principal; 2023-05-19 07:00)
DX: F25.9 Schizoaffective disorder, unspecified (principal); F01.518 Vascular dementia, unspecified severity, with other behavioral disturbance; R26.89 Other abnormalities of gait and mobility; E78.5 Hyperlipidemia, unspecified; Z79.899 Other long term (current) drug therapy
CPT/HCPCS: 90870; J0330; J1642

== ENCOUNTER → 2023-05-19 05:57 | Outpatient (BNV) | payer MEDICARE, MEDICAID, SELFPAY | PROVIDERS: PCP Emergency Medicine; Visit Provider Psychiatry & Neurology Psychiatry | DX: F33.3 Major depressive disorder, recurrent, severe with psychotic symptoms (principal) | CPT/HCPCS: 90870 ==

== ENCOUNTER 2023-06-02 05:59 | Day surgery (SDC) | payer MEDICARE, MEDICAID, SELFPAY ==
[2023-06-02] VITALS (8 sets, daily range): BP systolic 114–148; BP diastolic 57–71; PULSE 77–85; RESP 10–21; TEMP 36.1–36.8; O2SAT 96–99
--- NOTE | 2023-06-02 06:50 | HO.ANESPROP2 ---
[facility] Active Problems Active Problems: All Active Problems (Updated 02/18/23 @ 13:47 by Joy Mccall RN) Vascular dementia of acute onset with behavioral disturbance (Acute) Past Medical History Medical History Back pain Constipation Gait instability Hyperlipidemia Overweight Schizophrenia Trimalleolar fracture Tubular adenoma Vascular dementia of acute onset with behavioral disturbance Family History Family history of problems with anesthesia: No Surgical History History of Problems with Anesthesia: No Social History Social History Advance Directives: No Advance Directives Information Provided: Yes Meds Allergies Allergy/AdvReac Type Severity Reaction Status Date / Time No Known Allergies Allergy Verified 02/18/23 13:43 Active Medications: Current Medications Lactated Ringer's (Lr) 1,000 mls @ 50 mls/hr IVCONT .Q20H JANICE Home Medications Medication Instructions Recorded Confirmed Last Taken Type atorvastatin 10 mg tablet 10 mg PO DAILY 02/18/23 02/18/23 Unknown History clozapine 250 mg PO DAILY 02/18/23 02/18/23 Unknown History divalproex 500 mg tablet,extended 500 mg PO BID 02/18/23 02/18/23 Unknown History release 24 hr fluoxetine 40 mg capsule 40 mg PO DAILY 02/18/23 02/18/23 Unknown History gabapentin 400 mg tablet 800 mg PO TID 02/18/23 02/18/23 Unknown History glycopyrrolate 2 mg tablet 2 mg PO BID 02/18/23 02/18/23 Unknown History lorazepam 0.5 mg tablet 0.5 mg PO QPM 02/18/23 02/18/23 Unknown History lorazepam 1 mg tablet 1 mg PO QAM 02/18/23 02/18/23 Unknown History lorazepam 2 mg tablet 2 mg PO DAILY PRN Anxiety 02/18/23 02/18/23 Unknown History polyethylene glycol 3350 17 gram 17 g PO DAILY 02/18/23 02/18/23 Unknown History oral powder packet sennosides 8.6 mg tablet (senna) 8.6 mg PO DAILY 02/18/23 02/18/23 Unknown History Exam Exam Date and Time: June 02, 2023 0650 Height,Weight and Vital Signs: Last Vital Signs Temp 97 F 06/02/23 06:22 Pulse 77 06/02/23 06:22 Resp 16 06/02/23 06:22 BP 148/71 H 06/02/23 06:22 Pulse Ox 96 06/02/23 06:22 O2 Del Method Room Air 06/02/23 06:22 Airway Mallampati Class: II TM Dist: >3cm Neck ROM: Full Heart: rrr Lungs: cta Assessment and Plan Assessment Anesthesia Assessment: Anesthesia Plan Discussed and Chart Reviewed Final Anesthetic Review Family History of Problems with Anesthesia: No History of Problems with Anesthesia: No NPO: Yes ASA Class: III Final Preanesthetic Review: No Changes in Pt Med Stat, Meds/Allgs Chart Reviewed and Consent Obtained/Reviewed Patient Risk: Intermediate Procedure Risk: Intermediate Anesthetic Plan Anesthetic Plan: GA Disposition: Standard PACU
--- NOTE | 2023-06-02 06:57 | MHC.SHP ---
Pre-Procedural Eval Section A Date of Service: 06/02/23 The patient is an INPATIENT: No Changes since office visit: No Cold of Flu in the past 2 weeks, No New Medical Problems, No Changes in Medication and No Patient answered all questions The History & Physical has been completed within 30 days and I have reviewed it.: No Section B Chief Complaint: depression Details of Present Illness: Patient flat withdrawn Relevant Social History: None Present Medications: None Medical History: No relevant PMH History of Previous Operations: No relevant previous surgery Allergies: Allergies Allergy/AdvReac Type Severity Reaction Status Date / Time No Known Allergies Allergy Verified 02/18/23 13:43 Review of Systems Sugical H&P ROS: Negative: Constitution, Cardiovascular and Respiratory and Yes, Specify: Psychiatric (withdrawn) Exam Surgical H&P Exam: Normal: Heart (rr) and Normal: Lungs (clear) Plan Diagnosis/Plan: Unchanged I have reviewed the history and physical and performed a pertinent physical examination on my patient. No changes have occurred unless specified. Time Spent With Patient Time: Total time managing care of this patient today ____ minutes.
--- NOTE | 2023-06-02 07:01 | P.PCN_ITS ---
ECT Procedure Note Diagnosis/Treatment Date of Service: 06/02/23 Diagnosis: Schizoaffective Disorder Treatment: Maintenance Interval Clinical Notes: Patient appears more stable try to get further input from [facility] Time: Total time managing care of this patient today ____ minutes. ECT Settings Device: THYMATRON DGx Electrode Placement: Bitemporal Program/Pulse Width: 0.50 Energy Percent: 100 Seizure Duration By EEG (in seconds): 49 Medications Administration General Anesthetic: Etomidate (16) Muscle Relaxant: Succinylcholine (80) Ancillary Medications Miscillaneous Medications: Propofol (30) Airway Management Airway Management: Bag Mask Ventilation Treatment Recommendations Notes: inc etomidate 18 mg Pt Tolerated Procedure w/o Issue: Yes
== END 2023-06-02 08:55 | disposition home or self-care (01) ==
PROVIDERS: PCP Emergency Medicine; Visit Provider Psychiatry & Neurology Psychiatry
PROC: (CPT 90870; principal; 2023-06-02 07:30)
DX: F25.9 Schizoaffective disorder, unspecified (principal); F01.518 Vascular dementia, unspecified severity, with other behavioral disturbance; R26.89 Other abnormalities of gait and mobility; E78.5 Hyperlipidemia, unspecified; Z79.899 Other long term (current) drug therapy
CPT/HCPCS: 90870; J0330; J1642

== ENCOUNTER → 2023-06-02 05:59 | Outpatient (BNV) | payer MEDICARE, MEDICAID, SELFPAY | PROVIDERS: PCP Emergency Medicine; Visit Provider Psychiatry & Neurology Psychiatry | DX: F33.3 Major depressive disorder, recurrent, severe with psychotic symptoms (principal) | CPT/HCPCS: 90870 ==

== ENCOUNTER 2023-06-16 05:57 | Day surgery (SDC) | payer MEDICARE, MEDICAID, SELFPAY ==
[2023-06-16] VITALS (7 sets, daily range): BP systolic 114–155; BP diastolic 62–85; PULSE 80–85; RESP 15–16; TEMP 36.1–36.7; O2SAT 96–98; BMI 29.1
--- NOTE | 2023-06-16 06:52 | P.CONAN_ITS ---
[facility] Active Problems Active Problems: All Active Problems (Updated 02/18/23 @ 13:47 by Joy Mccall RN) Vascular dementia of acute onset with behavioral disturbance (Acute) Past Medical History Medical History Back pain Constipation Gait instability Hyperlipidemia Overweight Schizophrenia Trimalleolar fracture Tubular adenoma Vascular dementia of acute onset with behavioral disturbance Family History Family history of problems with anesthesia: No Surgical History History of Problems with Anesthesia: No Social History Advance Directives: No Advance Directives Information Provided: Yes Meds Allergies Allergy/AdvReac Type Severity Reaction Status Date / Time No Known Allergies Allergy Verified 02/18/23 13:43 Home Medications Medication Instructions Recorded Confirmed Last Taken Type atorvastatin 10 mg tablet 10 mg PO DAILY 02/18/23 02/18/23 Unknown History clozapine 250 mg PO DAILY 02/18/23 02/18/23 Unknown History divalproex 500 mg tablet,extended 500 mg PO BID 02/18/23 02/18/23 Unknown History release 24 hr fluoxetine 40 mg capsule 40 mg PO DAILY 02/18/23 02/18/23 Unknown History gabapentin 400 mg tablet 800 mg PO TID 02/18/23 02/18/23 Unknown History glycopyrrolate 2 mg tablet 2 mg PO BID 02/18/23 02/18/23 Unknown History lorazepam 0.5 mg tablet 0.5 mg PO QPM 02/18/23 02/18/23 Unknown History lorazepam 1 mg tablet 1 mg PO QAM 02/18/23 02/18/23 Unknown History lorazepam 2 mg tablet 2 mg PO DAILY PRN Anxiety 02/18/23 02/18/23 Unknown History polyethylene glycol 3350 17 gram 17 g PO DAILY 02/18/23 02/18/23 Unknown History oral powder packet sennosides 8.6 mg tablet (senna) 8.6 mg PO DAILY 02/18/23 02/18/23 Unknown History Exam Airway Mallampati Class: II TM Dist: >3cm Neck ROM: Full Heart: rrr Lungs: cta Assessment and Plan Assessment Anesthesia Assessment: Anesthesia Plan Discussed and Chart Reviewed Final Anesthetic Review Family History of Problems with Anesthesia: No History of Problems with Anesthesia: No NPO: Yes ASA Class: III Final Preanesthetic Review: No Changes in Pt Med Stat, Meds/Allgs Chart Reviewed and Consent Obtained/Reviewed Patient Risk: Intermediate Procedure Risk: Intermediate Anesthetic Plan Anesthetic Plan: GA Disposition: Standard PACU
--- NOTE | 2023-06-16 07:02 | MHC.SHP ---
Pre-Procedural Eval Section A Date of Service: 06/16/23 The patient is an INPATIENT: No Changes since office visit: No Cold of Flu in the past 2 weeks, No New Medical Problems, No Changes in Medication and No Patient answered all questions The History & Physical has been completed within 30 days and I have reviewed it.: Yes Section B Chief Complaint: Major depressive disorder, recurrent, severe with Allergies: Allergies Allergy/AdvReac Type Severity Reaction Status Date / Time No Known Allergies Allergy Verified 02/18/23 13:43 Plan I have reviewed the history and physical and performed a pertinent physical examination on my patient. No changes have occurred unless specified. Time Spent With Patient Time: Total time managing care of this patient today ____ minutes.
--- NOTE | 2023-06-16 07:35 | HO.ECTPROC ---
ECT Procedure Note Diagnosis/Treatment Date of Service: 06/16/23 Diagnosis: Schizoaffective Disorder Previous ECT Date: 06/02/23 Treatment: Maintenance Interval Clinical Notes: The patient reports no new symptoms, he looks internally preoccupied with delayed responses, as per his report, no changes. He can't remember side effects with previous ECT. Procedure done as per usual, no complications, he had a good seizure. We used Flumazenil today. Time: Total time managing care of this patient today __30__ minutes. ECT Settings Device: THYMATRON DGx Electrode Placement: Bitemporal Program/Pulse Width: 0.50 Energy Percent: 100 Seizure Duration By EEG (in seconds): 49 By Motor Observation (in seconds): 0 Medications Administration General Anesthetic: Etomidate (16) Muscle Relaxant: Succinylcholine (80) Ancillary Medications Analgesics: Torodol - Pre ECT Anti-emetics: Zofran - Pre ECT Miscillaneous Medications: Propofol and Flumazenil Airway Management Airway Management: Bag Mask Ventilation Treatment Recommendations No Changes Recommended: No change Pt Tolerated Procedure w/o Issue: Yes
== END 2023-06-16 10:21 | disposition home or self-care (01) ==
PROVIDERS: PCP Emergency Medicine; Visit Provider Psychiatry & Neurology Psychiatry
PROC: (CPT 90870; principal; 2023-06-16 15:30)
DX: F25.9 Schizoaffective disorder, unspecified (principal); F01.518 Vascular dementia, unspecified severity, with other behavioral disturbance; R26.89 Other abnormalities of gait and mobility; E78.5 Hyperlipidemia, unspecified; Z79.899 Other long term (current) drug therapy
CPT/HCPCS: 90870; J0330; J1642; J2704

== ENCOUNTER → 2023-06-16 05:57 | Outpatient (BNV) | payer MEDICARE, MEDICAID, SELFPAY | PROVIDERS: PCP Emergency Medicine; Visit Provider Psychiatry & Neurology Psychiatry | DX: F33.3 Major depressive disorder, recurrent, severe with psychotic symptoms (principal) | CPT/HCPCS: 90870 ==

== ENCOUNTER 2023-07-02 11:49 | Day surgery (SDC) | payer MEDICARE, MEDICAID, SELFPAY ==
[2023-07-02] VITALS (8 sets, daily range): BP systolic 126–184; BP diastolic 65–74; PULSE 87–100; RESP 16–22; TEMP 36.4–36.8; O2SAT 97–100; BMI 25.4
--- NOTE | 2023-07-02 12:55 | P.CONAN_ITS ---
FORM[facility]LY [facility] Active Problems Active Problems: All Active Problems (Updated 02/18/23 @ 13:47 by Joy Mccall RN) Vascular dementia of acute onset with behavioral disturbance (Acute) Past Medical History Medical History Gait instability Trimalleolar fracture Back pain Constipation Tubular adenoma Hyperlipidemia Overweight Schizophrenia Vascular dementia of acute onset with behavioral disturbance Family History Family history of problems with anesthesia: No Surgical History History of Problems with Anesthesia: No Social History Social History Patient Tobacco Use Status: Never used Tobacco Use of substances other than those prescribed or required for medical reasons: No Are you DNR?: No Advance Directives: No Advance Directives Information Provided: Yes Recently lost weight without trying: Unsure Nutrition Risks: No Nutritional Risk Meds Allergies Allergy/AdvReac Type Severity Reaction Status Date / Time No Known Allergies Allergy Verified 02/18/23 13:43 Home Medications Medication Instructions Recorded Confirmed Last Taken Type atorvastatin 10 mg tablet 10 mg PO DAILY 02/18/23 02/18/23 Unknown History clozapine 250 mg PO DAILY 02/18/23 02/18/23 Unknown History divalproex 500 mg tablet,extended 500 mg PO BID 02/18/23 02/18/23 Unknown History release 24 hr fluoxetine 40 mg capsule 40 mg PO DAILY 02/18/23 02/18/23 Unknown History gabapentin 400 mg tablet 800 mg PO TID 02/18/23 02/18/23 Unknown History glycopyrrolate 2 mg tablet 2 mg PO BID 02/18/23 02/18/23 Unknown History lorazepam 0.5 mg tablet 0.5 mg PO QPM 02/18/23 02/18/23 Unknown History lorazepam 1 mg tablet 1 mg PO QAM 02/18/23 02/18/23 Unknown History lorazepam 2 mg tablet 2 mg PO DAILY PRN Anxiety 02/18/23 02/18/23 Unknown History polyethylene glycol 3350 17 gram 17 g PO DAILY 02/18/23 02/18/23 Unknown History oral powder packet sennosides 8.6 mg tablet (senna) 8.6 mg PO DAILY 02/18/23 02/18/23 Unknown History Exam Height,Weight and Vital Signs: Height 5 ft 9 in Weight 78.018 kg Last Vital Signs Temp 97.7 F 07/02/23 12:14 Pulse 100 07/02/23 12:14 Resp 18 07/02/23 12:14 BP 150/71 H 07/02/23 12:14 Pulse Ox 97 07/02/23 12:14 O2 Del Method Room Air 07/02/23 12:14 Airway Mallampati Class: III TM Dist: >3cm Neck ROM: Full Heart: RRR Lungs: CTA Assessment and Plan Assessment Anesthesia Assessment: Anesthesia Plan Discussed Final Anesthetic Review Family History of Problems with Anesthesia: No History of Problems with Anesthesia: No NPO: Yes ASA Class: III Final Preanesthetic Review: Meds/Allgs Chart Reviewed, Consent Obtained/Reviewed and Anes Risks/Benef Reviewed Patient Risk: Low Procedure Risk: Low Anesthetic Plan Anesthetic Plan: GA Disposition: Standard PACU
--- NOTE | 2023-07-02 13:03 | MHC.SHP ---
Pre-Procedural Eval Section A Date of Service: 07/06/23 The patient is an INPATIENT: No Changes since office visit: No Cold of Flu in the past 2 weeks, No New Medical Problems, No Changes in Medication and No Patient answered all questions The History & Physical has been completed within 30 days and I have reviewed it.: Yes Section B Chief Complaint: Major depressive disorder, recurrent, severe with Details of Present Illness: recurrent schizoaffective dx has done well with ect for behavoiral problems Allergies: Allergies Allergy/AdvReac Type Severity Reaction Status Date / Time No Known Allergies Allergy Verified 02/18/23 13:43 Plan I have reviewed the history and physical and performed a pertinent physical examination on my patient. No changes have occurred unless specified. Time Spent With Patient Time: Total time managing care of this patient today ____ minutes.
--- NOTE | 2023-07-02 13:03 | HO.ECTPROC ---
ECT Procedure Note Diagnosis/Treatment Date of Service: 07/02/23 Diagnosis: Schizoaffective Disorder Previous ECT Date: 06/02/23 Treatment: Maintenance Interval Clinical Notes: pt withdrawn alert electively mute mission care needed to reschedule hi sect Time: Total time managing care of this patient today ____ minutes. ECT Settings Device: THYMATRON DGx Electrode Placement: Bitemporal Program/Pulse Width: 0.50 Energy Percent: 100 Seizure Duration By EEG (in seconds): 38 By Motor Observation (in seconds): 0 Medications Administration General Anesthetic: Etomidate (16) Muscle Relaxant: Succinylcholine (80) Ancillary Medications Analgesics: Torodol - Pre ECT Anti-emetics: Zofran - Pre ECT Miscillaneous Medications: Propofol and Flumazenil Airway Management Airway Management: Bag Mask Ventilation Treatment Recommendations No Changes Recommended: No change Electrode Placement: Bitemporal Program/Pulse Width: 0.50 Pt Tolerated Procedure w/o Issue: Yes
--- NOTE | 2023-07-02 13:30 | HO.POSTANES ---
Post Anesthesia Evaluation Post Anesthesia Evaluation Date of Service: 07/02/23 Vital Signs: Vital Signs Temp Pulse Resp BP Pulse Ox O2 Del Method 07/02/23 12:14 97.7 F 100 18 150/71 H 97 Room Air Anesthesia: General Mental Status: Awake Pain Control: Satisfactory Nausea/Vomiting: None Hydration: Adequate Anesthesia-Related Issues: No Anes. Related Issues
== END 2023-07-02 14:45 | disposition home or self-care (01) ==
PROVIDERS: Psychiatry & Neurology Psychiatry; PCP Emergency Medicine; Visit Provider Psychiatry & Neurology Psychiatry
PROC: (CPT 90870; principal; 2023-07-02 13:30)
DX: F25.9 Schizoaffective disorder, unspecified (principal); F01.518 Vascular dementia, unspecified severity, with other behavioral disturbance; R26.89 Other abnormalities of gait and mobility; E78.5 Hyperlipidemia, unspecified; Z79.899 Other long term (current) drug therapy
CPT/HCPCS: 90870; J0330

== ENCOUNTER → 2023-07-02 11:49 | Outpatient (BNV) | payer MEDICARE, MEDICAID, SELFPAY | PROVIDERS: PCP Emergency Medicine; Visit Provider Psychiatry & Neurology Psychiatry | DX: F33.3 Major depressive disorder, recurrent, severe with psychotic symptoms (principal) | CPT/HCPCS: 90870 ==

== ENCOUNTER 2023-07-21 05:49 | Day surgery (SDC) | payer MEDICARE, MEDICAID, SELFPAY ==
[2023-07-21] VITALS (7 sets, daily range): BP systolic 125–160; BP diastolic 49–80; PULSE 82–90; RESP 16–18; TEMP 36.1–36.3; O2SAT 95–99; BMI 25.4
--- NOTE | 2023-07-21 07:24 | MHC.SHP ---
Pre-Procedural Eval Section A Date of Service: 07/21/23 The patient is an INPATIENT: No Changes since office visit: No Cold of Flu in the past 2 weeks, No New Medical Problems, No Changes in Medication and No Patient answered all questions The History & Physical has been completed within 30 days and I have reviewed it.: No Section B Chief Complaint: depression Details of Present Illness: Patient flat withdrawn Relevant Social History: None Present Medications: None Medical History: No relevant PMH History of Previous Operations: No relevant previous surgery Allergies: Allergies Allergy/AdvReac Type Severity Reaction Status Date / Time No Known Allergies Allergy Verified 02/18/23 13:43 Review of Systems Sugical H&P ROS: Negative: Constitution, Cardiovascular and Respiratory and Yes, Specify: Psychiatric (withdrawn) Exam Surgical H&P Exam: Normal: Heart (rr) and Normal: Lungs (clear) Plan Diagnosis/Plan: Unchanged I have reviewed the history and physical and performed a pertinent physical examination on my patient. No changes have occurred unless specified. Time Spent With Patient Time: Total time managing care of this patient today ____ minutes.
--- NOTE | 2023-07-21 07:25 | P.PCN_ITS ---
ECT Procedure Note Diagnosis/Treatment Date of Service: 07/22/23 Diagnosis: Schizoaffective Disorder Treatment: Maintenance Interval Clinical Notes: Patient mostly passive and withdrawn no new medical concerns Time: Total time managing care of this patient today ____ minutes. ECT Settings Device: THYMATRON DGx Electrode Placement: Bitemporal Program/Pulse Width: 0.50 Energy Percent: 100 Seizure Duration By EEG (in seconds): 38 By Motor Observation (in seconds): 0 Medications Administration General Anesthetic: Etomidate (16) Muscle Relaxant: Succinylcholine (80) Ancillary Medications Analgesics: Torodol - Pre ECT Anti-emetics: Zofran - Pre ECT Miscillaneous Medications: Propofol and Flumazenil Airway Management Airway Management: Bag Mask Ventilation Treatment Recommendations No Changes Recommended: No change Electrode Placement: Bitemporal Program/Pulse Width: 0.50 Notes: Patient records reviewed from [facility] no adverse effects noted Pt Tolerated Procedure w/o Issue: Yes
--- NOTE | 2023-07-21 07:33 | HO.ANESPROP2 ---
FORM[facility]LY [facility], LAT[facility] Active Problems Active Problems: All Active Problems (Updated 02/18/23 @ 13:47 by Joy Mccall RN) Vascular dementia of acute onset with behavioral disturbance (Acute) Past Medical History Medical History Gait instability Trimalleolar fracture Back pain Constipation Tubular adenoma Hyperlipidemia Overweight Schizophrenia Vascular dementia of acute onset with behavioral disturbance Family History Family history of problems with anesthesia: No Surgical History History of Problems with Anesthesia: No Social History Social History Patient Tobacco Use Status: Never used Tobacco Advance Directives: No Advance Directives Information Provided: Yes Meds Allergies Allergy/AdvReac Type Severity Reaction Status Date / Time No Known Allergies Allergy Verified 02/18/23 13:43 Home Medications Medication Instructions Recorded Confirmed Last Taken Type atorvastatin 10 mg tablet 10 mg PO DAILY 02/18/23 02/18/23 Unknown History clozapine 250 mg PO DAILY 02/18/23 02/18/23 Unknown History divalproex 500 mg tablet,extended 500 mg PO BID 02/18/23 02/18/23 Unknown History release 24 hr fluoxetine 40 mg capsule 40 mg PO DAILY 02/18/23 02/18/23 Unknown History gabapentin 400 mg tablet 800 mg PO TID 02/18/23 02/18/23 Unknown History glycopyrrolate 2 mg tablet 2 mg PO BID 02/18/23 02/18/23 Unknown History lorazepam 0.5 mg tablet 0.5 mg PO QPM 02/18/23 02/18/23 Unknown History lorazepam 1 mg tablet 1 mg PO QAM 02/18/23 02/18/23 Unknown History lorazepam 2 mg tablet 2 mg PO DAILY PRN Anxiety 02/18/23 02/18/23 Unknown History polyethylene glycol 3350 17 gram 17 g PO DAILY 02/18/23 02/18/23 Unknown History oral powder packet sennosides 8.6 mg tablet (senna) 8.6 mg PO DAILY 02/18/23 02/18/23 Unknown History Exam Height,Weight and Vital Signs: Height 5 ft 9 in Weight 78.018 kg Last Vital Signs Temp 97 F 07/21/23 06:34 Pulse 82 07/21/23 06:34 Resp 16 07/21/23 06:34 BP 147/80 H 07/21/23 06:34 Pulse Ox 97 07/21/23 06:34 O2 Del Method Room Air 07/21/23 06:34 Airway Mallampati Class: III TM Dist: >3cm Neck ROM: Full Assessment and Plan Assessment Anesthesia Assessment: Anesthesia Plan Discussed and Chart Reviewed Final Anesthetic Review Family History of Problems with Anesthesia: No History of Problems with Anesthesia: No NPO: Yes ASA Class: III Final Preanesthetic Review: No Changes in Pt Med Stat, Meds/Allgs Chart Reviewed, Consent Obtained/Reviewed and Anes Risks/Benef Reviewed Patient Risk: Intermediate Procedure Risk: Intermediate Anesthetic Plan Anesthetic Plan: GA Disposition: Standard PACU
== END 2023-07-21 09:20 | disposition home or self-care (01) ==
PROVIDERS: PCP Emergency Medicine; Visit Provider Psychiatry & Neurology Psychiatry
PROC: (CPT 90870; principal; 2023-07-21 07:00)
DX: F25.9 Schizoaffective disorder, unspecified (principal); F01.518 Vascular dementia, unspecified severity, with other behavioral disturbance; E78.5 Hyperlipidemia, unspecified; R26.81 Unsteadiness on feet; G89.29 Other chronic pain; Z79.899 Other long term (current) drug therapy
CPT/HCPCS: 90870; J0330; J1642; J2405; J2704

== ENCOUNTER → 2023-07-21 05:49 | Outpatient (BNV) | payer MEDICARE, MEDICAID, SELFPAY | PROVIDERS: PCP Emergency Medicine; Visit Provider Psychiatry & Neurology Psychiatry | DX: F33.3 Major depressive disorder, recurrent, severe with psychotic symptoms (principal) | CPT/HCPCS: 90870 ==

== ENCOUNTER 2023-07-28 05:54 | Day surgery (SDC) | payer MEDICARE, MEDICAID, SELFPAY ==
[2023-07-28] VITALS (8 sets, daily range): BP systolic 125–149; BP diastolic 48–78; PULSE 77–87; RESP 16–22; TEMP 36–36.3; O2SAT 94–100; BMI 25.4
--- NOTE | 2023-07-28 06:51 | P.CONAN_ITS ---
[facility] Active Problems Active Problems: All Active Problems (Updated 02/18/23 @ 13:47 by Joy Mccall RN) Vascular dementia of acute onset with behavioral disturbance (Acute) Past Medical History Medical History Gait instability Trimalleolar fracture Back pain Constipation Tubular adenoma Hyperlipidemia Overweight Schizophrenia Vascular dementia of acute onset with behavioral disturbance Family History Family history of problems with anesthesia: No Surgical History History of Problems with Anesthesia: No Social History Social History Patient Tobacco Use Status: Never used Tobacco Use of substances other than those prescribed or required for medical reasons: No Are you DNR?: No Advance Directives: No Advance Directives Information Provided: Yes Meds Allergies Allergy/AdvReac Type Severity Reaction Status Date / Time No Known Allergies Allergy Verified 07/28/23 06:20 Home Medications Medication Instructions Recorded Confirmed Last Taken Type atorvastatin 10 mg tablet 10 mg PO DAILY 02/18/23 02/18/23 Unknown History clozapine 250 mg PO DAILY 02/18/23 02/18/23 Unknown History divalproex 500 mg tablet,extended 500 mg PO BID 02/18/23 02/18/23 Unknown History release 24 hr fluoxetine 40 mg capsule 40 mg PO DAILY 02/18/23 02/18/23 Unknown History gabapentin 400 mg tablet 800 mg PO TID 02/18/23 02/18/23 Unknown History glycopyrrolate 2 mg tablet 2 mg PO BID 02/18/23 02/18/23 Unknown History lorazepam 0.5 mg tablet 0.5 mg PO QPM 02/18/23 02/18/23 Unknown History lorazepam 1 mg tablet 1 mg PO QAM 02/18/23 02/18/23 Unknown History lorazepam 2 mg tablet 2 mg PO DAILY PRN Anxiety 02/18/23 02/18/23 Unknown History polyethylene glycol 3350 17 gram 17 g PO DAILY 02/18/23 02/18/23 Unknown History oral powder packet sennosides 8.6 mg tablet (senna) 8.6 mg PO DAILY 02/18/23 02/18/23 Unknown History Exam Height,Weight and Vital Signs: Height 5 ft 9 in Weight 78.018 kg Airway Mallampati Class: II (missing multiple teeth) TM Dist: >3cm Neck ROM: Full Heart: rrr Lungs: cta Assessment and Plan Assessment Anesthesia Assessment: Anesthesia Plan Discussed and Chart Reviewed Final Anesthetic Review Family History of Problems with Anesthesia: No History of Problems with Anesthesia: No NPO: Yes ASA Class: III Final Preanesthetic Review: No Changes in Pt Med Stat, Meds/Allgs Chart Reviewed and Consent Obtained/Reviewed Patient Risk: Intermediate Procedure Risk: Intermediate Anesthetic Plan Anesthetic Plan: GA Disposition: Standard PACU
[2023-07-28] MEDS: Lactated Ringers 1,000 ML 50 ML IVCONT (06:55)
--- NOTE | 2023-07-28 07:04 | MHC.SHP ---
Pre-Procedural Eval Section A Date of Service: 07/28/23 The patient is an INPATIENT: No Changes since office visit: No Cold of Flu in the past 2 weeks, No New Medical Problems, No Changes in Medication and No Patient answered all questions The History & Physical has been completed within 30 days and I have reviewed it.: Yes Section B Chief Complaint: Major depressive disorder, recurrent, severe with Allergies: Allergies Allergy/AdvReac Type Severity Reaction Status Date / Time No Known Allergies Allergy Verified 07/28/23 06:20 Plan I have reviewed the history and physical and performed a pertinent physical examination on my patient. No changes have occurred unless specified. Time Spent With Patient Time: Total time managing care of this patient today ____ minutes.
--- NOTE | 2023-07-28 07:25 | HO.ECTPROC ---
ECT Procedure Note Diagnosis/Treatment Date of Service: 07/28/23 Diagnosis: Catatonia and Schizoaffective Disorder Previous ECT Date: 07/21/23 Treatment: Maintenance Interval Clinical Notes: The patient was selectively mute, able to answer simple questions. Unable to answer questions regarding past ECT. Procedure done as per usual. No complications. We were unable to get information if he got his benzodiazepines last night so we decided to use Flumazenil. Time: Total time managing care of this patient today __30__ minutes. ECT Settings Device: THYMATRON DGx Electrode Placement: Bitemporal Program/Pulse Width: 0.50 Energy Percent: 100 Seizure Duration By EEG (in seconds): 42 By Motor Observation (in seconds): 24 Medications Administration General Anesthetic: Etomidate (18) Muscle Relaxant: Succinylcholine (80) Ancillary Medications Anti-emetics: Zofran - Pre ECT Miscillaneous Medications: Propofol Airway Management Airway Management: Bag Mask Ventilation Treatment Recommendations No Changes Recommended: No change Pt Tolerated Procedure w/o Issue: Yes
[2023-07-28] MEDS: LORazepam 0.5 MG TABLET PO (07:57)
== END 2023-07-28 09:00 | disposition home or self-care (01) ==
PROVIDERS: PCP Emergency Medicine; Visit Provider Psychiatry & Neurology Psychiatry
PROC: (CPT 90870; principal; 2023-07-28 07:00)
DX: F20.2 Catatonic schizophrenia (principal); F94.0 Selective mutism; F01.518 Vascular dementia, unspecified severity, with other behavioral disturbance; E78.5 Hyperlipidemia, unspecified; R26.81 Unsteadiness on feet; G89.29 Other chronic pain; M54.50 Low back pain, unspecified; Z99.89 Dependence on other enabling machines and devices; Z79.899 Other long term (current) drug therapy
CPT/HCPCS: 90870; J0330; J1642; J2405; J2704

== ENCOUNTER → 2023-07-28 05:54 | Outpatient (BNV) | payer MEDICARE, MEDICAID, SELFPAY | PROVIDERS: PCP Emergency Medicine; Visit Provider Psychiatry & Neurology Psychiatry | DX: F33.3 Major depressive disorder, recurrent, severe with psychotic symptoms (principal) | CPT/HCPCS: 90870 ==

== ENCOUNTER 2023-08-11 06:06 | Day surgery (SDC) | payer MEDICARE, MEDICAID, SELFPAY ==
[2023-08-11] VITALS (9 sets, daily range): BP systolic 103–151; BP diastolic 46–67; PULSE 77–87; RESP 16–20; TEMP 35.7–36.3; O2SAT 93–99; BMI 29.1
--- NOTE | 2023-08-11 06:55 | HO.ANESPROP2 ---
FORM[facility] Active Problems Active Problems: All Active Problems (Updated 02/18/23 @ 13:47 by Joy Mccall RN) Vascular dementia of acute onset with behavioral disturbance (Acute) Past Medical History Medical History Gait instability Trimalleolar fracture Back pain Constipation Tubular adenoma Hyperlipidemia Overweight Schizophrenia Vascular dementia of acute onset with behavioral disturbance Family History Family history of problems with anesthesia: No Surgical History History of Problems with Anesthesia: No Social History Social History Patient Tobacco Use Status: Never used Tobacco Advance Directives: No Advance Directives Information Provided: Yes Meds Allergies Allergy/AdvReac Type Severity Reaction Status Date / Time No Known Allergies Allergy Verified 07/28/23 06:20 Home Medications Medication Instructions Recorded Confirmed Last Taken Type atorvastatin 10 mg tablet 10 mg PO DAILY 02/18/23 02/18/23 Unknown History clozapine 250 mg PO DAILY 02/18/23 02/18/23 Unknown History divalproex 500 mg tablet,extended 500 mg PO BID 02/18/23 02/18/23 Unknown History release 24 hr fluoxetine 40 mg capsule 40 mg PO DAILY 02/18/23 02/18/23 Unknown History gabapentin 400 mg tablet 800 mg PO TID 02/18/23 02/18/23 Unknown History glycopyrrolate 2 mg tablet 2 mg PO BID 02/18/23 02/18/23 Unknown History lorazepam 0.5 mg tablet 0.5 mg PO QPM 02/18/23 02/18/23 Unknown History lorazepam 1 mg tablet 1 mg PO QAM 02/18/23 02/18/23 Unknown History lorazepam 2 mg tablet 2 mg PO DAILY PRN Anxiety 02/18/23 02/18/23 Unknown History polyethylene glycol 3350 17 gram 17 g PO DAILY 02/18/23 02/18/23 Unknown History oral powder packet sennosides 8.6 mg tablet (senna) 8.6 mg PO DAILY 02/18/23 02/18/23 Unknown History Exam Height,Weight and Vital Signs: Height 5 ft 9 in Weight 89.358 kg Last Vital Signs Temp 96.3 F L 08/11/23 06:29 Pulse 87 08/11/23 06:29 Resp 18 08/11/23 06:29 BP 151/63 H 08/11/23 06:29 Pulse Ox 98 08/11/23 06:29 O2 Del Method Room Air 08/11/23 06:29 Airway Mallampati Class: II TM Dist: >3cm Neck ROM: Full Heart: rrr Lungs: cta Assessment and Plan Assessment Anesthesia Assessment: Anesthesia Plan Discussed and Chart Reviewed Final Anesthetic Review Family History of Problems with Anesthesia: No History of Problems with Anesthesia: No NPO: Yes ASA Class: III Final Preanesthetic Review: No Changes in Pt Med Stat, Meds/Allgs Chart Reviewed and Consent Obtained/Reviewed Patient Risk: Intermediate Procedure Risk: Intermediate Anesthetic Plan Anesthetic Plan: GA Disposition: Standard PACU
--- NOTE | 2023-08-11 07:10 | MHC.SHP ---
Pre-Procedural Eval Section A Date of Service: 08/11/23 The History & Physical has been completed within 30 days and I have reviewed it.: No Section B Chief Complaint: Major depressive disorder, recurrent, severe with Details of Present Illness: Recurrent depression Relevant Social History: None Present Medications: see Short Stay Collaborative assessment Allergies: Allergies Allergy/AdvReac Type Severity Reaction Status Date / Time No Known Allergies Allergy Verified 07/28/23 06:20 Review of Systems Sugical H&P ROS: Negative: Cardiovascular and Respiratory and Yes, Specify: Neurological and Psychiatric Exam Surgical H&P Exam: Normal: Heart and Normal: Lungs Plan Diagnosis/Plan: Unchanged I have reviewed the history and physical and performed a pertinent physical examination on my patient. No changes have occurred unless specified. Time Spent With Patient Time: Total time managing care of this patient today ____ minutes.
--- NOTE | 2023-08-11 07:46 | HO.ECTPROC ---
ECT Procedure Note Diagnosis/Treatment Date of Service: 08/11/23 Diagnosis: Schizoaffective Disorder Previous ECT Date: 07/28/23 Treatment: Maintenance Interval Clinical Notes: The patient was selectively mute, able to answer simple questions. Unable to answer questions regarding past ECT. Procedure done as per usual. No complications. Time: Total time managing care of this patient today __30__ minutes. ECT Settings Device: THYMATRON DGx Electrode Placement: Bitemporal Program/Pulse Width: 0.50 Energy Percent: 100 Seizure Duration By EEG (in seconds): 35 Medications Administration General Anesthetic: Etomidate (18) Muscle Relaxant: Succinylcholine (80) Ancillary Medications Anti-emetics: Zofran - Pre ECT Miscillaneous Medications: Propofol Airway Management Airway Management: Bag Mask Ventilation Treatment Recommendations No Changes Recommended: No change Notes: has had biweekly maint tx Pt Tolerated Procedure w/o Issue: Yes
== END 2023-08-11 09:17 | disposition home or self-care (01) ==
PROVIDERS: PCP Emergency Medicine; Visit Provider Psychiatry & Neurology Psychiatry
PROC: (CPT 90870; principal; 2023-08-11 07:00)
DX: F25.9 Schizoaffective disorder, unspecified (principal)
CPT/HCPCS: 90870; J0330; J1642; J1885; J2405; J2704

== ENCOUNTER → 2023-08-11 06:06 | Outpatient (BNV) | payer MEDICARE, MEDICAID, SELFPAY | PROVIDERS: PCP Emergency Medicine; Visit Provider Psychiatry & Neurology Psychiatry | DX: F33.3 Major depressive disorder, recurrent, severe with psychotic symptoms (principal) | CPT/HCPCS: 90870 ==

== ENCOUNTER 2023-08-25 06:55 | Day surgery (SDC) | payer MEDICARE, MEDICAID, SELFPAY ==
[2023-08-25] VITALS (8 sets, daily range): BP systolic 117–140; BP diastolic 57–70; PULSE 81–83; RESP 15–20; TEMP 36.3–36.8; O2SAT 94–99; BMI 27.6
--- NOTE | 2023-08-25 | ECG_ITS ---
Test Reason : ect Blood Pressure : / mmHG Vent. Rate : 081 BPM Atrial Rate : 081 BPM P-R Int : 164 ms QRS Dur : 088 ms QT Int : 392 ms P-R-T Axes : 068 -76 064 degrees QTc Int : 455 ms Normal sinus rhythm Left axis deviation Abnormal ECG When compared with ECG of 19-FEB-2023 07:35, No significant change was found Referred By: Fran Flanagan Electronically Signed By:ASHOK WINTERS MD
--- NOTE | 2023-08-25 06:47 | P.CONAN_ITS ---
[facility] Active Problems Active Problems: All Active Problems (Updated 02/18/23 @ 13:47 by Joy Mccall RN) Vascular dementia of acute onset with behavioral disturbance (Acute) Past Medical History Medical History Gait instability Trimalleolar fracture Back pain Constipation Tubular adenoma Hyperlipidemia Overweight Schizophrenia Vascular dementia of acute onset with behavioral disturbance Family History Family history of problems with anesthesia: No Surgical History History of Problems with Anesthesia: No Social History Social History Patient Tobacco Use Status: Never used Tobacco Meds Allergies Allergy/AdvReac Type Severity Reaction Status Date / Time No Known Allergies Allergy Verified 07/28/23 06:20 Home Medications Medication Instructions Recorded Confirmed Last Taken Type atorvastatin 10 mg tablet 10 mg PO DAILY 02/18/23 02/18/23 Unknown History clozapine 250 mg PO DAILY 02/18/23 02/18/23 Unknown History divalproex 500 mg tablet,extended 500 mg PO BID 02/18/23 02/18/23 Unknown Hist ory release 24 hr fluoxetine 40 mg capsule 40 mg PO DAILY 02/18/23 02/18/23 Unknown History gabapentin 400 mg tablet 800 mg PO TID 02/18/23 02/18/23 Unknown History glycopyrrolate 2 mg tablet 2 mg PO BID 02/18/23 02/18/23 Unknown History lorazepam 0.5 mg tablet 0.5 mg PO QPM 02/18/23 02/18/23 Unknown History lorazepam 1 mg tablet 1 mg PO QAM 02/18/23 02/18/23 Unknown History lorazepam 2 mg tablet 2 mg PO DAILY PRN Anxiety 02/18/23 02/18/23 Unknown History polyethylene glycol 3350 17 gram 17 g PO DAILY 02/18/23 02/18/23 Unknown History oral powder packet sennosides 8.6 mg tablet (senna) 8.6 mg PO DAILY 02/18/23 02/18/23 Unknown History Exam Height,Weight and Vital Signs: Height 5 ft 9 in Weight 84.822 kg Last Vital Signs Temp 97.3 F 08/25/23 06:27 Pulse 82 08/25/23 06:27 Resp 16 08/25/23 06:27 BP 117/67 08/25/23 06:27 Pulse Ox 95 08/25/23 06:27 O2 Del Method Room Air 08/25/23 06:27 Airway Mallampati Class: II TM Dist: >3cm Neck ROM: Full Denture: Upper Heart: rrr Lungs: cta Assessment and Plan Assessment Anesthesia Assessment: Anesthesia Plan Discussed and Chart Reviewed Final Anesthetic Review Family History of Problems with Anesthesia: No History of Problems with Anesthesia: No NPO: Yes ASA Class: III Final Preanesthetic Review: No Changes in Pt Med Stat, Meds/Allgs Chart Reviewed and Consent Obtained/Reviewed Patient Risk: Intermediate Procedure Risk: Intermediate Anesthetic Plan Anesthetic Plan: GA Disposition: Standard PACU
--- NOTE | 2023-08-25 07:06 | MHC.SHP ---
Pre-Procedural Eval Section A - 24 Hr Update-Section A only Date of Service: 08/25/23 The patient is an INPATIENT: No Changes since office visit: Yes Patient answered all questions; No Cold of Flu in the past 2 weeks, No New Medical Problems and No Changes in Medication The patient has been examined within 24 hours of the surgical procedure. The History & Physical has been completed within 30 days and I have reviewed it.: No Section B - Complete if H&P > 30 days Chief Complaint: Major depressive disorder, recurrent, severe with Details of Present Illness: recurrent depression Relevant Social History: None Present Medications: see Short Stay Collaborative assessment Allergies: Allergies Allergy/AdvReac Type Severity Reaction Status Date / Time No Known Allergies Allergy Verified 07/28/23 06:20 Review of Systems Sugical H&P ROS: Negative: Cardiovascular and Respiratory and Yes, Specify: Neurological and Psychiatric Exam Surgical H&P Exam: Normal: Heart and Normal: Lungs (clear) Plan Diagnosis/Plan: Unchanged I have reviewed the history and physical and performed a pertinent physical examination on my patient. No changes have occurred unless specified. Time Spent With Patient Time: Total time managing care of this patient today ____ minutes.
--- NOTE | 2023-08-25 07:07 | HO.ECTPROC ---
ECT Procedure Note Diagnosis/Treatment Date of Service: 08/25/23 Diagnosis: Schizoaffective Disorder Previous ECT Date: 08/11/23 Treatment: Maintenance Interval Clinical Notes: The patient was selectively mute, able to answer simple questions.Knows he is here for ect seems stable not overly depressed or agitated Procedure done as per usual. No complications. Time: Total time managing care of this patient today ____ minutes. ECT Settings Device: THYMATRON DGx Electrode Placement: Bitemporal Program/Pulse Width: 0.50 Energy Percent: 100 Seizure Duration By EEG (in seconds): 24 Medications Administration General Anesthetic: Etomidate (18) Muscle Relaxant: Succinylcholine (80) Ancillary Medications Anti-emetics: Zofran - Pre ECT Miscillaneous Medications: Propofol Airway Management Airway Management: Bag Mask Ventilation Treatment Recommendations No Changes Recommended: No change Notes: has had biweekly maint tx ongoing ck labs Pt Tolerated Procedure w/o Issue: Yes
[2023-08-25] MEDS: Lactated Ringers 1,000 ML 50 ML IVCONT (07:08)
[2023-08-25 08:41] LABS: MANUAL DIFF FLAG NO
[2023-08-25 08:44] LABS: Basophils Percent Auto 0.1 % (0-2); Eosinophils Percent Auto 0.1 % (0-4); Hematocrit 37.8 % (42.0-52.0); Imm Gran Abs Auto 0.02 X10*3/uL (0.00-0.03); Imm Gran Pct Auto 0.2 % (0.0-0.4); Lymphocytes Absolute Auto 1.4 X10*3/uL (1.2-4.9); Lymphocytes Percent Auto 14.2 % (20-40); Mean Corpuscular HGB Conc 34.4 g/dl (31.0-36.0); Mean Corpuscular Hemoglobin 32.6 pg (27.0-33.0); Mean Corpuscular Volume 94.7 fL (80.0-98.0); Mean Platelet Volume 9.1 fL (9.4-12.4); Monocytes Absolute Auto 0.6 X10*3/uL (0.1-1.2); Monocytes Percent Auto 5.8 % (2-11); Neutrophils Absolute Auto 8.1 x10*3/uL (2.0-8.3); Neutrophils Percent Auto 79.6 % (45-73); Platelet Count 140 X10*3/uL (160-400); Red Blood Count 3.99 X10*6/uL (4.60-5.80); Red Cell Distribution Width 12.6 % (11.0-16.0); White Blood Count 10.1 X10*3/uL (4.8-10.8)
[2023-08-25 09:06] LABS: Alanine Aminotransferase 10 U/L (0-40); Albumin Level 3.5 g/dL (3.5-5.0); Alkaline Phosphatase 66 U/L (39-117); Anion Gap 13 (12-20); Aspartate Amino Transferase 18 U/L (5-37); Bilirubin Total 0.8 mg/dL (0.0-1.0); Blood Urea Nitrogen 19 mg/dL (9-16); Calcium 8.3 mg/dL (8.4-10.2); Carbon Dioxide 23 mmol/L (22-29); Chloride 106 mmol/L (96-108); Estimated Glomerular Filt Rate > 60; Glucose Random 111 mg/dL (60-115); Potassium 4.2 mmol/L (3.3-5.1); Sodium 138 mmol/L (135-145); Total Protein 6.8 g/dL (6.5-8.0)
[2023-08-25 09:20] LABS: TSH reflex Free T4 7.01 uIU/mL (0.32-4.0)
[2023-08-25 09:33] LABS: Folate 7.1 ng/mL (> or = 4.0); Vitamin B12 469 pg/mL (200-900)
[2023-08-25 09:51] LABS: Free T4 (Free Thyroxine) 0.98 ng/dL (0.71-1.85)
== END 2023-08-25 09:28 | disposition home or self-care (01) ==
PROVIDERS: PCP Emergency Medicine; Visit Provider Psychiatry & Neurology Psychiatry
PROC: (CPT 90870; principal; 2023-08-25 07:00)
DX: F25.9 Schizoaffective disorder, unspecified (principal); F94.0 Selective mutism; F01.518 Vascular dementia, unspecified severity, with other behavioral disturbance; E78.5 Hyperlipidemia, unspecified; R26.81 Unsteadiness on feet; Z79.899 Other long term (current) drug therapy; Z99.89 Dependence on other enabling machines and devices
CPT/HCPCS: 36415; 80053; 82607; 82746; 84439; 84443; 85025; 90870; 93005; J0330; J1642; J2405; J2704

== ENCOUNTER → 2023-08-25 06:55 | Outpatient (BNV) | payer MEDICARE, MEDICAID, SELFPAY | PROVIDERS: PCP Emergency Medicine; Visit Provider Psychiatry & Neurology Psychiatry | DX: F33.3 Major depressive disorder, recurrent, severe with psychotic symptoms (principal) | CPT/HCPCS: 90870 ==

== ENCOUNTER → 2023-08-25 07:50 | Outpatient (BNV) | payer MEDICARE, MEDICAID, SELFPAY | PROVIDERS: PCP Emergency Medicine; Visit Provider Internal Medicine Cardiovascular Disease | DX: R94.31 Abnormal electrocardiogram [ECG] [EKG] (principal) | CPT/HCPCS: 93010 ==

== ENCOUNTER 2023-09-08 06:29 | Day surgery (SDC) | payer MEDICARE, MEDICAID, SELFPAY ==
[2023-09-08] VITALS (8 sets, daily range): BP systolic 113–154; BP diastolic 65–80; PULSE 76–81; RESP 18–22; TEMP 36.1–36.3; O2SAT 97–100; BMI 25.2
--- NOTE | 2023-09-08 07:01 | P.CONAN_ITS ---
[facility] Active Problems Active Problems: All Active Problems (Updated 02/18/23 @ 13:47 by Joy Mccall RN) Vascular dementia of acute onset with behavioral disturbance (Acute) Past Medical History Medical History Gait instability Trimalleolar fracture Back pain Constipation Tubular adenoma Hyperlipidemia Overweight Schizophrenia Vascular dementia of acute onset with behavioral disturbance Family History Family history of problems with anesthesia: No Surgical History History of Problems with Anesthesia: No Social History Social History Patient Tobacco Use Status: Never used Tobacco Advance Directives: No Advance Directives Information Provided: Yes Meds Allergies Allergy/AdvReac Type Severity Reaction Status Date / Time No Known Allergies Allergy Verified 07/28/23 06:20 Active Medications: Current Medications Lactated Ringer's (Lr) 1,000 mls @ 50 mls/hr IVCONT .Q20H JANICE Home Medications Medication Instructions Recorded Confirmed Last Taken Type atorvastatin 10 mg tablet 10 mg PO DAILY 02/18/23 02/18/23 Unknown History clozapine 250 mg PO DAILY 02/18/23 02/18/23 Unknown History divalproex 500 mg tablet,extended 500 mg PO BID 02/18/23 02/18/23 Unknown History release 24 hr fluoxetine 40 mg capsule 40 mg PO DAILY 02/18/23 02/18/23 Unknown History gabapentin 400 mg tablet 800 mg PO TID 02/18/23 02/18/23 Unknown History glycopyrrolate 2 mg tablet 2 mg PO BID 02/18/23 02/18/23 Unknown History lorazepam 0.5 mg tablet 0.5 mg PO QPM 02/18/23 02/18/23 Unknown History lorazepam 1 mg tablet 1 mg PO QAM 02/18/23 02/18/23 Unknown History lorazepam 2 mg tablet 2 mg PO DAILY PRN Anxiety 02/18/23 02/18/23 Unknown History polyethylene glycol 3350 17 gram 17 g PO DAILY 02/18/23 02/18/23 Unknown History oral powder packet sennosides 8.6 mg tablet (senna) 8.6 mg PO DAILY 02/18/23 02/18/23 Unknown History Exam Height,Weight and Vital Signs: Height 5 ft 9 in Weight 77.564 kg Last Vital Signs Temp 97.1 F 02/14/24 06:31 Pulse 79 09/08/23 06:31 Resp 18 09/08/23 06:31 BP 154/78 H 09/08/23 06:31 Pulse Ox 98 09/08/23 06:31 O2 Del Method Room Air 09/08/23 06:31 Airway Mallampati Class: Patient Non-Cooperative TM Dist: >3cm Neck ROM: Full Heart: rrr Lungs: cta Assessment and Plan Assessment Anesthesia Assessment: Anesthesia Plan Discussed and Chart Reviewed Final Anesthetic Review Family History of Problems with Anesthesia: No History of Problems with Anesthesia: No NPO: Yes ASA Class: III Final Preanesthetic Review: No Changes in Pt Med Stat, Meds/Allgs Chart Reviewed and Consent Obtained/Reviewed Patient Risk: Intermediate Procedure Risk: Intermediate Anesthetic Plan Anesthetic Plan: GA Disposition: Standard PACU
--- NOTE | 2023-09-08 07:03 | MHC.SHP ---
Pre-Procedural Eval Section A - 24 Hr Update-Section A only Date of Service: 09/08/23 The patient is an INPATIENT: No Changes since office visit: Yes Patient answered all questions; No Cold of Flu in the past 2 weeks, No New Medical Problems and No Changes in Medication The patient has been examined within 24 hours of the surgical procedure. The History & Physical has been completed within 30 days and I have reviewed it.: No Section B - Complete if H&P > 30 days Chief Complaint: Major depressive disorder, recurrent, severe with Details of Present Illness: recurrent psychosis behavoiral problems Relevant Social History: None Present Medications: see Short Stay Collaborative assessment Allergies: Allergies Allergy/AdvReac Type Severity Reaction Status Date / Time No Known Allergies Allergy Verified 07/28/23 06:20 Review of Systems Sugical H&P ROS: Negative: Cardiovascular and Respiratory and Yes, Specify: Neurological and Psychiatric Exam Surgical H&P Exam: Normal: Heart and Normal: Lungs (clear) Plan Diagnosis/Plan: Unchanged I have reviewed the history and physical and performed a pertinent physical examination on my patient. No changes have occurred unless specified. [facility] Time Spent With Patient Time: Total time managing care of this patient today ____ minutes.
--- NOTE | 2023-09-08 07:06 | P.PCN_ITS ---
ECT Procedure Note Diagnosis/Treatment Date of Service: 09/08/23 Diagnosis: Schizoaffective Disorder Previous ECT Date: 08/25/23 Treatment: Maintenance Interval Clinical Notes: The patient was selectively mute, did not respond to questions did not appear to be in any distress vital signs unremarkable EKG no acute changes or arrhythmia. Mood flat not combative Procedure done as per usual. No complications. Time: Total time managing care of this patient today ____ minutes. ECT Settings Device: THYMATRON DGx Electrode Placement: Bitemporal Program/Pulse Width: 0.50 Energy Percent: 100 Seizure Duration By EEG (in seconds): 33 Medications Administration General Anesthetic: Etomidate (16) Muscle Relaxant: Succinylcholine (100) Ancillary Medications Anti-emetics: Zofran - Pre ECT Miscillaneous Medications: Propofol (30) Airway Management Airway Management: Bag Mask Ventilation Treatment Recommendations No Changes Recommended: No change Notes: has had biweekly maint tx ongoing medical records reviewed from [facility] recent labs reviewed noted increased TSH labs sent to [facility] PCP Pt Tolerated Procedure w/o Issue: Yes
== END 2023-09-08 09:00 | disposition home or self-care (01) ==
PROVIDERS: PCP Emergency Medicine; Visit Provider Psychiatry & Neurology Psychiatry
PROC: (CPT 90870; principal; 2023-09-08 07:00)
DX: F25.1 Schizoaffective disorder, depressive type (principal); Z99.89 Dependence on other enabling machines and devices; F94.0 Selective mutism; F01.518 Vascular dementia, unspecified severity, with other behavioral disturbance; E78.5 Hyperlipidemia, unspecified; R26.81 Unsteadiness on feet; Z79.899 Other long term (current) drug therapy
CPT/HCPCS: 90870; J0330; J1642; J2405; J2704

== ENCOUNTER → 2023-09-08 06:29 | Outpatient (BNV) | payer MEDICARE, MEDICAID, SELFPAY | PROVIDERS: PCP Emergency Medicine; Visit Provider Psychiatry & Neurology Psychiatry | DX: F33.3 Major depressive disorder, recurrent, severe with psychotic symptoms (principal) | CPT/HCPCS: 90870 ==

== ENCOUNTER 2023-09-22 05:47 | Day surgery (SDC) | payer MEDICARE, MEDICAID, SELFPAY ==
[2023-09-22] VITALS (9 sets, daily range): BP systolic 107–153; BP diastolic 54–76; PULSE 71–77; RESP 16–20; TEMP 36.1–36.7; O2SAT 96–99; BMI 29.5
--- NOTE | 2023-09-22 06:43 | P.CONAN_ITS ---
COUNTS INCLUDE 234 BEDS AT THE [facility] Active Problems Active Problems: All Active Problems (Updated 02/18/23 @ 13:47 by Joy Mccall RN) Vascular dementia of acute onset with behavioral disturbance (Acute) Past Medical History Medical History Gait instability Trimalleolar fracture Back pain Constipation Tubular adenoma Hyperlipidemia Overweight Schizophrenia Vascular dementia of acute onset with behavioral disturbance Family History Family history of problems with anesthesia: No Surgical History History of Problems with Anesthesia: No Social History Social History Patient Tobacco Use Status: Never used Tobacco Advance Directives: No Advance Directives Information Provided: Yes Meds Allergies Allergy/AdvReac Type Severity Reaction Status Date / Time No Known Allergies Allergy Verified 07/28/23 06:20 Active Medications: Current Medications Lactated Ringer's (Lr) 1,000 mls @ 50 mls/hr IVCONT .Q20H JANICE Home Medications Medication Instructions Recorded Confirmed Last Taken Type atorvastatin 10 mg tablet 10 mg PO DAILY 02/18/23 02/18/23 Unknown History clozapine 250 mg PO DAILY 02/18/23 02/18/23 Unknown History divalproex 500 mg tablet,extended 500 mg PO BID 02/18/23 02/18/23 Unknown History release 24 hr fluoxetine 40 mg capsule 40 mg PO DAILY 02/18/23 02/18/23 Unknown History gabapentin 400 mg tablet 800 mg PO TID 02/18/23 02/18/23 Unknown History glycopyrrolate 2 mg tablet 2 mg PO BID 02/18/23 02/18/23 Unknown History lorazepam 0.5 mg tablet 0.5 mg PO QPM 02/18/23 02/18/23 Unknown History lorazepam 1 mg tablet 1 mg PO QAM 02/18/23 02/18/23 Unknown History lorazepam 2 mg tablet 2 mg PO DAILY PRN Anxiety 02/18/23 02/18/23 Unknown History polyethylene glycol 3350 17 gram 17 g PO DAILY 02/18/23 02/18/23 Unknown History oral powder packet sennosides 8.6 mg tablet (senna) 8.6 mg PO DAILY 02/18/23 02/18/23 Unknown History Exam Height,Weight and Vital Signs: Height 5 ft 9 in Weight 90.718 kg Last Vital Signs Temp 97 F 09/22/23 06:33 Pulse 77 09/22/23 06:33 Resp 16 09/22/23 06:33 BP 153/76 H 09/22/23 06:33 Pulse Ox 98 09/22/23 06:33 O2 Del Method Room Air 09/22/23 06:33 Airway Mallampati Class: II (edentulous on top) TM Dist: >3cm Neck ROM: Full Heart: rrr Lungs: cta Assessment and Plan Assessment Anesthesia Assessment: Anesthesia Plan Discussed and Chart Reviewed Final Anesthetic Review Family History of Problems with Anesthesia: No History of Problems with Anesthesia: No NPO: Yes ASA Class: III Final Preanesthetic Review: No Changes in Pt Med Stat, Meds/Allgs Chart Reviewed and Consent Obtained/Reviewed Patient Risk: Intermediate Procedure Risk: Intermediate Anesthetic Plan Anesthetic Plan: GA Disposition: Standard PACU
--- NOTE | 2023-09-22 07:12 | MHC.SHP ---
Pre-Procedural Eval Section A - 24 Hr Update-Section A only Date of Service: 09/22/23 Section B - Complete if H&P > 30 days Chief Complaint: Major depressive disorder, recurrent, severe with Details of Present Illness: hx of schizoaffectibe dementia with agitation Relevant Social History: None Present Medications: see Short Stay Collaborative assessment Medical History: Significant History (hx maintenance ect) Allergies: Allergies Allergy/AdvReac Type Severity Reaction Status Date / Time No Known Allergies Allergy Verified 07/28/23 06:20 Review of Systems Sugical H&P ROS: Negative: Cardiovascular and Respiratory Exam Surgical H&P Exam: Normal: Heart and Normal: Lungs Plan Diagnosis/Plan: Unchanged I have reviewed the history and physical and performed a pertinent physical examination on my patient. No changes have occurred unless specified.notes from facility reviewed Time Spent With Patient Time: Total time managing care of this patient today ____ minutes.
--- NOTE | 2023-09-22 07:27 | HO.ECTPROC ---
ECT Procedure Note Diagnosis/Treatment Date of Service: 09/22/23 Diagnosis: Schizoaffective Disorder Previous ECT Date: 09/08/23 Treatment: Maintenance Interval Clinical Notes: Patient reportedly unremarkable unchanged no new medical concerns noted by facility Time: Total time managing care of this patient today ____ minutes. ECT Settings Device: THYMATRON DGx Electrode Placement: Bitemporal Program/Pulse Width: 0.50 Energy Percent: 100 Seizure Duration By EEG (in seconds): 46 Medications Administration General Anesthetic: Etomidate (16) Muscle Relaxant: Succinylcholine (100) Ancillary Medications Anti-emetics: Zofran - Pre ECT Miscillaneous Medications: Propofol (30) Airway Management Airway Management: Bag Mask Ventilation Treatment Recommendations No Changes Recommended: No change Notes: has had biweekly maint tx ongoing medical records reviewed from [facility] recent labs reviewed noted increased TSH labs sent to [facility] PCP previously f/u 2 weeks Pt Tolerated Procedure w/o Issue: Yes
== END 2023-09-22 09:43 | disposition home or self-care (01) ==
PROVIDERS: PCP Emergency Medicine; Visit Provider Psychiatry & Neurology Psychiatry
PROC: (CPT 90870; principal; 2023-09-22 07:00)
DX: F25.1 Schizoaffective disorder, depressive type (principal); F01.518 Vascular dementia, unspecified severity, with other behavioral disturbance; E78.5 Hyperlipidemia, unspecified; G89.29 Other chronic pain; E66.3 Overweight; R26.81 Unsteadiness on feet; Z79.899 Other long term (current) drug therapy; Z99.89 Dependence on other enabling machines and devices
CPT/HCPCS: 90870; J0330; J1642; J2405; J2704

== ENCOUNTER → 2023-09-22 05:47 | Outpatient (BNV) | payer MEDICARE, MEDICAID, SELFPAY | PROVIDERS: PCP Emergency Medicine; Visit Provider Psychiatry & Neurology Psychiatry | DX: F33.3 Major depressive disorder, recurrent, severe with psychotic symptoms (principal) | CPT/HCPCS: 90870 ==

== ENCOUNTER 2023-10-06 07:04 | Day surgery (SDC) | payer MEDICARE, MEDICAID, SELFPAY ==
[2023-10-06] VITALS (8 sets, daily range): BP systolic 127–138; BP diastolic 63–75; PULSE 70–79; RESP 16–20; TEMP 35.5–36.6; O2SAT 95–99; BMI 27.5
--- NOTE | 2023-10-06 07:49 | MHC.SHP ---
Pre-Procedural Eval Section A - 24 Hr Update-Section A only Date of Service: 10/06/23 The patient is an INPATIENT: No Section B - Complete if H&P > 30 days Chief Complaint: depression agitation Details of Present Illness: hx recurrent depression cognitive impairment has done better with behavio no reported side effects r Relevant Social History: None Present Medications: see Short Stay Collaborative assessment Medical History: Significant History (hx maintenance ect) Allergies: Allergies Allergy/AdvReac Type Severity Reaction Status Date / Time No Known Allergies Allergy Verified 07/28/23 06:20 Review of Systems Sugical H&P ROS: Negative: Cardiovascular and Respiratory Exam Surgical H&P Exam: Normal: Heart and Normal: Lungs Plan Diagnosis/Plan: Unchanged I have reviewed the history and physical and performed a pertinent physical examination on my patient. No changes have occurred unless specified. pt alert in good spirits Time Spent With Patient Time: Total time managing care of this patient today _30___ minutes.
--- NOTE | 2023-10-06 07:53 | HO.ECTPROC ---
ECT Procedure Note Diagnosis/Treatment Date of Service: 10/06/23 Diagnosis: Schizoaffective Disorder Previous ECT Date: 09/22/23 Treatment: Maintenance Interval Clinical Notes: Patient reportedly unremarkable unchanged no new medical concerns noted by facility pt verbal somewhat more forthcoming Time: Total time managing care of this patient today ____ minutes. ECT Settings Device: THYMATRON DGx Electrode Placement: Bitemporal Program/Pulse Width: 0.50 Energy Percent: 100 Seizure Duration By EEG (in seconds): 46 Medications Administration General Anesthetic: Etomidate (16) Muscle Relaxant: Succinylcholine (100) Ancillary Medications Anti-emetics: Zofran - Pre ECT Miscillaneous Medications: Propofol (30) Airway Management Airway Management: Bag Mask Ventilation Treatment Recommendations No Changes Recommended: No change Notes: f/u 2 weeks consider seeing if any taper is possible Pt Tolerated Procedure w/o Issue: Yes
--- NOTE | 2023-10-06 08:05 | P.CONAN_ITS ---
[facility] Active Problems Active Problems: All Active Problems (Updated 02/18/23 @ 13:47 by Joy Mccall RN) Vascular dementia of acute onset with behavioral disturbance (Acute) Past Medical History Medical History Gait instability Trimalleolar fracture Back pain Constipation Tubular adenoma Hyperlipidemia Overweight Schizophrenia Vascular dementia of acute onset with behavioral disturbance Family History Family history of problems with anesthesia: No Surgical History History of Problems with Anesthesia: No Social History Social History Patient Tobacco Use Status: Never used Tobacco Advance Directives: No Advance Directives Information Provided: Yes Meds Allergies Allergy/AdvReac Type Severity Reaction Status Date / Time No Known Allergies Allergy Verified 07/28/23 06:20 Home Medications Medication Instructions Recorded Confirmed Last Taken Type atorvastatin 10 mg tablet 10 mg PO DAILY 02/18/23 02/18/23 Unknown History clozapine 250 mg PO DAILY 02/18/23 02/18/23 Unknown History divalproex 500 mg tablet,extended 500 mg PO BID 02/18/23 02/18/23 Unknown History release 24 hr fluoxetine 40 mg capsule 40 mg PO DAILY 02/18/23 02/18/23 Unknown History gabapentin 400 mg tablet 800 mg PO TID 02/18/23 02/18/23 Unknown History glycopyrrolate 2 mg tablet 2 mg PO BID 02/18/23 02/18/23 Unknown History lorazepam 0.5 mg tablet 0.5 mg PO QPM 02/18/23 02/18/23 Unknown History lorazepam 1 mg tablet 1 mg PO QAM 02/18/23 02/18/23 Unknown History lorazepam 2 mg tablet 2 mg PO DAILY PRN Anxiety 02/18/23 02/18/23 Unknown History polyethylene glycol 3350 17 gram 17 g PO DAILY 02/18/23 02/18/23 Unknown History oral powder packet sennosides 8.6 mg tablet (senna) 8.6 mg PO DAILY 02/18/23 02/18/23 Unknown History Exam Height,Weight and Vital Signs: Height 5 ft 11 in Weight 89.358 kg Last Vital Signs Temp 96 F L 10/06/23 07:12 Pulse 70 10/06/23 07:12 Resp 18 10/06/23 07:12 BP 136/75 10/06/23 07:12 Pulse Ox 98 10/06/23 07:12 O2 Del Method Room Air 10/06/23 07:12 Airway Mallampati Class: Patient Non-Cooperative TM Dist: >3cm Neck ROM: Full Heart: rrr Lungs: cta Assessment and Plan Assessment Anesthesia Assessment: Anesthesia Plan Discussed and Chart Reviewed Final Anesthetic Review Family History of Problems with Anesthesia: No History of Problems with Anesthesia: No NPO: Yes ASA Class: III Final Preanesthetic Review: No Changes in Pt Med Stat, Meds/Allgs Chart Reviewed and Consent Obtained/Reviewed Patient Risk: Intermediate Procedure Risk: Intermediate Anesthetic Plan Anesthetic Plan: GA Disposition: Standard PACU
== END 2023-10-06 09:42 | disposition home or self-care (01) ==
PROVIDERS: PCP Emergency Medicine; Visit Provider Psychiatry & Neurology Psychiatry
PROC: (CPT 90870; principal; 2023-10-06 08:30)
DX: F25.1 Schizoaffective disorder, depressive type (principal); F01.518 Vascular dementia, unspecified severity, with other behavioral disturbance; R26.81 Unsteadiness on feet; E78.5 Hyperlipidemia, unspecified; M54.9 Dorsalgia, unspecified; E66.3 Overweight; Z79.899 Other long term (current) drug therapy
CPT/HCPCS: 90870; J0330; J1642; J2405; J2704

== ENCOUNTER → 2023-10-06 07:04 | Outpatient (BNV) | payer MEDICARE, MEDICAID, SELFPAY | PROVIDERS: PCP Emergency Medicine; Visit Provider Psychiatry & Neurology Psychiatry | DX: F33.3 Major depressive disorder, recurrent, severe with psychotic symptoms (principal) | CPT/HCPCS: 90870 ==

== ENCOUNTER → 2023-10-20 05:54 | Outpatient (BNV) | payer MEDICARE, MEDICAID, SELFPAY | PROVIDERS: PCP Emergency Medicine; Visit Provider Psychiatry & Neurology Psychiatry | DX: F33.3 Major depressive disorder, recurrent, severe with psychotic symptoms (principal) | CPT/HCPCS: 90870 ==

== ENCOUNTER → 2023-10-20 05:54 | Day surgery (SDC) | payer MEDICARE, OTHER, SELFPAY ==
[2023-10-20] VITALS (10 sets, daily range): BP systolic 118–154; BP diastolic 67–86; PULSE 74–81; RESP 16–22; TEMP 36.1–37.1; O2SAT 95–100; BMI 25.2
--- NOTE | 2023-10-20 07:05 | MHC.SHP ---
Pre-Procedural Eval Section A - 24 Hr Update-Section A only Date of Service: 10/20/23 The patient is an INPATIENT: No Section B - Complete if H&P > 30 days Chief Complaint: Major depressive disorder, recurrent, severe with Details of Present Illness: hx recurrent depression cognitive impairment has done better with behavio no reported side effects r Relevant Social History: None Present Medications: see Short Stay Collaborative assessment Medical History: Significant History (hx maintenance ect) Allergies: Allergies Allergy/AdvReac Type Severity Reaction Status Date / Time No Known Allergies Allergy Verified 07/28/23 06:20 Review of Systems Sugical H&P ROS: Negative: Cardiovascular and Respiratory Exam Surgical H&P Exam: Normal: Heart and Normal: Lungs Exam Comment: vs stable good o2 calm comfortable Plan Diagnosis/Plan: Unchanged I have reviewed the history and physical and performed a pertinent physical examination on my patient. No changes have occurred unless specified. Time Spent With Patient Time: Total time managing care of this patient today ____ minutes.
--- NOTE | 2023-10-20 07:08 | HO.ECTPROC ---
ECT Procedure Note Diagnosis/Treatment Date of Service: 10/20/23 Diagnosis: Schizoaffective Disorder Previous ECT Date: 10/06/23 Treatment: Maintenance Interval Clinical Notes: Patient appears to generally be stable he is somewhat blunted he is answering superficial questions and does engage when seen Time: Total time managing care of this patient today ____ minutes. ECT Settings Device: THYMATRON DGx Electrode Placement: Bitemporal Program/Pulse Width: 0.50 Energy Percent: 100 Seizure Duration By EEG (in seconds): 46 Medications Administration General Anesthetic: Etomidate (16) Muscle Relaxant: Succinylcholine (100) Ancillary Medications Anti-emetics: Zofran - Pre ECT Miscillaneous Medications: Propofol (30) Airway Management Airway Management: Bag Mask Ventilation Treatment Recommendations No Changes Recommended: No change Notes: f/u 2 weeks consider seeing if any taper is possible will try to coordinate with [facility] Pt Tolerated Procedure w/o Issue: Yes
--- NOTE | 2023-10-20 08:18 | P.CONAN_ITS ---
ON LICENSE OF [facility] Active Problems Active Problems: All Active Problems (Updated 02/18/23 @ 13:47 by Joy Mccall RN) Vascular dementia of acute onset with behavioral disturbance (Acute) Past Medical History Medical History Gait instability Trimalleolar fracture Back pain Constipation Tubular adenoma Hyperlipidemia Overweight Schizophrenia Vascular dementia of acute onset with behavioral disturbance Functional capacity: independent ambulation Family History Family history of problems with anesthesia: No Surgical History History of Problems with Anesthesia: No Social History Social History Patient Tobacco Use Status: Never used Tobacco Advance Directives: No Advance Directives Information Provided: Yes Meds Allergies Allergy/AdvReac Type Severity Reaction Status Date / Time No Known Allergies Allergy Verified 07/28/23 06:20 Home Medications Medication Instructions Recorded Confirmed Last Taken Type atorvastatin 10 mg tablet 10 mg PO DAILY 02/18/23 02/18/23 Unknown History clozapine 250 mg PO DAILY 02/18/23 02/18/23 Unknown History divalproex 500 mg tablet,extended 500 mg PO BID 02/18/23 02/18/23 Unknown History release 24 hr fluoxetine 40 mg capsule 40 mg PO DAILY 02/18/23 02/18/23 Unknown History gabapentin 400 mg tablet 800 mg PO TID 02/18/23 02/18/23 Unknown History glycopyrrolate 2 mg tablet 2 mg PO BID 02/18/23 02/18/23 Unknown History lorazepam 0.5 mg tablet 0.5 mg PO QPM 02/18/23 02/18/23 Unknown History lorazepam 1 mg tablet 1 mg PO QAM 02/18/23 02/18/23 Unknown History lorazepam 2 mg tablet 2 mg PO DAILY PRN Anxiety 02/18/23 02/18/23 Unknown History polyethylene glycol 3350 17 gram 17 g PO DAILY 02/18/23 02/18/23 Unknown History oral powder packet sennosides 8.6 mg tablet (senna) 8.6 mg PO DAILY 02/18/23 02/18/23 Unknown History Exam Height,Weight and Vital Signs: Height 5 ft 9 in Weight 77.564 kg Last Vital Signs Temp 98.8 F 10/20/23 07:29 Pulse 76 10/20/23 07:59 Resp 19 10/20/23 07:59 BP 126/69 10/20/23 07:59 Pulse Ox 98 10/20/23 07:59 O2 Del Method Nasal Cannula with Capnography 10/20/23 07:59 O2 Flow Rate 1 10/20/23 07:59 Airway Mallampati Class: III TM Dist: >3cm Neck ROM: Full Heart: RRR Lungs: CTA Assessment and Plan Assessment Anesthesia Assessment: Anesthesia Plan Discussed Final Anesthetic Review Family History of Problems with Anesthesia: No History of Problems with Anesthesia: No ASA Class: III Final Preanesthetic Review: Consent Obtained/Reviewed and Anes Risks/Benef Reviewed Patient Risk: Low Procedure Risk: Low Anesthetic Plan Anesthetic Plan: GA Disposition: Standard PACU
--- NOTE | 2023-10-20 08:19 | HO.POSTANES ---
Post Anesthesia Evaluation Post Anesthesia Evaluation Date of Service: 10/20/23 Vital Signs: Vital Signs Temp Pulse Resp BP Pulse Ox O2 Del Method O2 Flow Rate 10/20/23 07:59 76 19 126/69 98 Nasal Cannula with ETCO2 1 10/20/23 07:44 78 22 H 136/69 100 Nasal Cannula with ETCO2 2 10/20/23 07:39 78 21 H 135/67 100 Nasal Cannula with ETCO2 2 10/20/23 07:34 77 20 138/68 100 Nasal Cannula with ETCO2 2 10/20/23 07:29 98.8 F 74 16 146/71 H 100 Nasal Cannula with ETCO2 2 10/20/23 06:28 97 F 81 16 154/86 H 95 Room Air Anesthesia: General Mental Status: Awake Pain Control: Satisfactory Nausea/Vomiting: None Hydration: Adequate Anesthesia-Related Issues: No Anes. Related Issues
== END | disposition home or self-care (01) ==
PROVIDERS: PCP Emergency Medicine; Visit Provider Psychiatry & Neurology Psychiatry
PROC: (CPT 90870; principal; 2023-10-20 08:00)
DX: F25.9 Schizoaffective disorder, unspecified (principal); F01.518 Vascular dementia, unspecified severity, with other behavioral disturbance; R26.81 Unsteadiness on feet; E78.5 Hyperlipidemia, unspecified; M54.9 Dorsalgia, unspecified; G89.29 Other chronic pain; E66.3 Overweight; Z79.899 Other long term (current) drug therapy; Z99.89 Dependence on other enabling machines and devices
CPT/HCPCS: 90870; J0330; J1642; J2405; J2704

== ENCOUNTER 2023-11-17 05:48 | Day surgery (SDC) | payer MEDICARE, OTHER, SELFPAY ==
[2023-11-17] VITALS (8 sets, daily range): BP systolic 129–145; BP diastolic 62–76; PULSE 74–80; RESP 13–18; TEMP 36.3–36.5; O2SAT 97–99; BMI 26.3
--- NOTE | 2023-11-17 07:34 | MHC.SHP ---
Pre-Procedural Eval Section A - 24 Hr Update-Section A only Date of Service: 11/17/23 The patient is an INPATIENT: No Section B - Complete if H&P > 30 days Chief Complaint: Major depressive disorder, recurrent, severe with Details of Present Illness: hx recurrent depression cognitive impairment has done better with behavior no reported side effects has court order Relevant Social History: None Present Medications: see Short Stay Collaborative assessment Medical History: Significant History (hx maintenance ect) Allergies: Allergies Allergy/AdvReac Type Severity Reaction Status Date / Time No Known Allergies Allergy Verified 07/28/23 06:20 Review of Systems Sugical H&P ROS: Negative: Cardiovascular and Respiratory Exam Surgical H&P Exam: Normal: Heart and Normal: Lungs Exam Comment: vs stable good o2 calm comfortable Plan Diagnosis/Plan: Unchanged I have reviewed the history and physical and performed a pertinent physical examination on my patient. No changes have occurred unless specified. Time Spent With Patient Time: Total time managing care of this patient today ____ minutes.
--- NOTE | 2023-11-17 07:57 | HO.ECTPROC ---
ECT Procedure Note Diagnosis/Treatment Date of Service: 11/17/23 Diagnosis: Schizoaffective Disorder Previous ECT Date: 10/06/23 Treatment: Maintenance Interval Clinical Notes: Patient appears to generally be stable he is somewhat blunted he is answering superficial questions and does engage when seen Time: Total time managing care of this patient today ____ minutes. ECT Settings Device: THYMATRON DGx Electrode Placement: Bitemporal Program/Pulse Width: 0.50 Energy Percent: 100 Seizure Duration By EEG (in seconds): 39 Medications Administration General Anesthetic: Etomidate (16) Muscle Relaxant: Succinylcholine (100) Ancillary Medications Anti-emetics: Zofran - Pre ECT Miscillaneous Medications: Propofol (30) Airway Management Airway Management: Bag Mask Ventilation Treatment Recommendations No Changes Recommended: No change Notes: f/u 2 weeks consider seeing if any taper is possible will try to coordinate with [facility] Pt Tolerated Procedure w/o Issue: Yes
--- NOTE | 2023-11-17 08:35 | P.CONAN_ITS ---
[facility] Active Problems Active Problems: All Active Problems Vascular dementia of acute onset with behavioral disturbance (Acute) Past Medical History Medical History Gait instability Trimalleolar fracture Back pain Constipation Tubular adenoma Hyperlipidemia Overweight Schizophrenia Vascular dementia of acute onset with behavioral disturbance Functional capacity: independent ambulation Family History Family history of problems with anesthesia: No Surgical History History of Problems with Anesthesia: No Social History Social History Patient Tobacco Use Status: Never used Tobacco Advance Directives: No Advance Directives Information Provided: Yes Meds Allergies Allergy/AdvReac Type Severity Reaction Status Date / Time No Known Allergies Allergy Verified 07/28/23 06:20 Home Medications ?Medication ?Instructions ?Recorded ?Confirmed ?Last Taken ?Type atorvastatin 10 mg tablet 10 mg PO DAILY 02/18/23 02/18/23 Unknown History clozapine 250 mg PO DAILY 02/18/23 02/18/23 Unknown History divalproex 500 mg tablet,extended 500 mg PO BID 02/18/23 02/18/23 Unknown History release 24 hr fluoxetine 40 mg capsule 40 mg PO DAILY 02/18/23 02/18/23 Unknown History gabapentin 400 mg tablet 800 mg PO TID 02/18/23 02/18/23 Unknown History glycopyrrolate 2 mg tablet 2 mg PO BID 02/18/23 02/18/23 Unknown History lorazepam 0.5 mg tablet 0.5 mg PO QPM 02/18/23 02/18/23 Unknown History lorazepam 1 mg tablet 1 mg PO QAM 02/18/23 02/18/23 Unknown History lorazepam 2 mg tablet 2 mg PO DAILY PRN Anxiety 02/18/23 02/18/23 Unknown History polyethylene glycol 3350 17 gram 17 g PO DAILY 02/18/23 02/18/23 Unknown History oral powder packet sennosides 8.6 mg tablet (senna) 8.6 mg PO DAILY 02/18/23 02/18/23 Unknown History Exam Height,Weight and Vital Signs: Height 5 ft 9 in Weight 80.739 kg Last Vital Signs Temp 97.7 F 11/17/23 07:54 Pulse 78 11/17/23 08:24 Resp 16 11/17/23 08:24 BP 144/62 H 11/17/23 08:24 Pulse Ox 98 11/17/23 08:24 O2 Del Method Room Air 11/17/23 08:24 O2 Flow Rate 2 11/17/23 08:04 Airway Mallampati Class: III TM Dist: >3cm Neck ROM: Full Heart: RRR Lungs: CTA Assessment and Plan Assessment Anesthesia Assessment: Anesthesia Plan Discussed Final Anesthetic Review Family History of Problems with Anesthesia: No History of Problems with Anesthesia: No NPO: Yes ASA Class: III Final Preanesthetic Review: Meds/Allgs Chart Reviewed, Consent Obtained/Reviewed and Anes Risks/Benef Reviewed Patient Risk: Low Procedure Risk: Low Anesthetic Plan Anesthetic Plan: GA Disposition: Standard PACU and Inp. Admit - Standard Bed
--- NOTE | 2023-11-17 08:39 | HO.POSTANES ---
Post Anesthesia Evaluation Post Anesthesia Evaluation Date of Service: 11/17/23 Vital Signs: Vital Signs Temp Pulse Resp BP Pulse Ox O2 Del Method O2 Flow Rate 11/17/23 08:24 78 16 144/62 H 98 Room Air 11/17/23 08:09 79 16 137/74 98 Room Air 11/17/23 08:04 80 16 145/67 H 99 Nasal Cannula with ETCO2 2 11/17/23 07:59 80 13 135/67 99 Nasal Cannula with ETCO2 2 11/17/23 07:54 97.7 F 79 16 137/75 99 Nasal Cannula with ETCO2 2 11/17/23 06:32 97.4 F 80 16 129/64 97 Room Air Anesthesia: General Mental Status: Awake Pain Control: Satisfactory Nausea/Vomiting: None Hydration: Adequate Anesthesia-Related Issues: No Anes. Related Issues
== END 2023-11-17 09:18 | disposition home or self-care (01) ==
PROVIDERS: PCP Emergency Medicine; Visit Provider Psychiatry & Neurology Psychiatry
PROC: (CPT 90870; principal; 2023-11-17 07:00)
DX: F25.9 Schizoaffective disorder, unspecified (principal); F01.518 Vascular dementia, unspecified severity, with other behavioral disturbance; R26.81 Unsteadiness on feet; E78.5 Hyperlipidemia, unspecified; M54.9 Dorsalgia, unspecified; G89.29 Other chronic pain; E66.3 Overweight; Z79.899 Other long term (current) drug therapy; Z99.89 Dependence on other enabling machines and devices
CPT/HCPCS: 90870; J0330; J1642; J2405

== ENCOUNTER → 2023-11-17 05:48 | Outpatient (BNV) | payer MEDICARE, MEDICAID, SELFPAY | PROVIDERS: PCP Emergency Medicine; Visit Provider Psychiatry & Neurology Psychiatry | DX: F33.3 Major depressive disorder, recurrent, severe with psychotic symptoms (principal) | CPT/HCPCS: 90870 ==

== ENCOUNTER 2023-12-15 05:44 | Day surgery (SDC) | payer MEDICARE, MEDICAID, SELFPAY ==
--- NOTE | 2023-12-15 06:47 | MHC.SHP ---
Pre-Procedural Eval Section A - 24 Hr Update-Section A only Date of Service: 12/15/23 The patient is an INPATIENT: No The patient has been examined within 24 hours of the surgical procedure. The History & Physical has been completed within 30 days and I have reviewed it.: Yes Section B - Complete if H&P > 30 days Chief Complaint: Major depressive disorder, recurrent, severe with Details of Present Illness: pt says he's here for ECT Relevant Social History: None Allergies: Allergies Allergy/AdvReac Type Severity Reaction Status Date / Time No Known Allergies Allergy Verified 07/28/23 06:20 Review of Systems Sugical H&P ROS: Negative: Cardiovascular, Respiratory and Eyes/Ears/Nose/Throat Exam Surgical H&P Exam: Normal: Heart and Normal: Lungs Plan Diagnosis/Plan: Unchanged I have reviewed the history and physical and performed a pertinent physical examination on my patient. No changes have occurred unless specified. continue with maintenance ECT Time Spent With Patient Time: Total time managing care of this patient today ____ minutes.
--- NOTE | 2023-12-15 06:52 | HO.ANESPROP2 ---
[facility] Active Problems Active Problems: All Active Problems Vascular dementia of acute onset with behavioral disturbance (Acute) Past Medical History Medical History Gait instability Trimalleolar fracture Back pain Constipation Tubular adenoma Hyperlipidemia Overweight Schizophrenia Vascular dementia of acute onset with behavioral disturbance Family History Family history of problems with anesthesia: No Surgical History History of Problems with Anesthesia: No Social History Social History Patient Tobacco Use Status: Never used Tobacco Advance Directives: No Advance Directives Information Provided: Yes Meds Allergies Allergy/AdvReac Type Severity Reaction Status Date / Time No Known Allergies Allergy Verified 07/28/23 06:20 Home Medications ?Medication ?Instructions ?Recorded ?Confirmed ?Last Taken ?Type atorvastatin 10 mg tablet 10 mg PO DAILY 02/18/23 02/18/23 Unknown History clozapine 250 mg PO DAILY 02/18/23 02/18/23 Unknown History divalproex 500 mg tablet,extended 500 mg PO BID 02/18/23 02/18/23 Unknown History release 24 hr fluoxetine 40 mg capsule 40 mg PO DAILY 02/18/23 02/18/23 Unknown History gabapentin 400 mg tablet 800 mg PO TID 02/18/23 02/18/23 Unknown History glycopyrrolate 2 mg tablet 2 mg PO BID 02/18/23 02/18/23 Unknown History lorazepam 0.5 mg tablet 0.5 mg PO QPM 02/18/23 02/18/23 Unknown History lorazepam 1 mg tablet 1 mg PO QAM 02/18/23 02/18/23 Unknown History lorazepam 2 mg tablet 2 mg PO DAILY PRN Anxiety 02/18/23 02/18/23 Unknown History polyethylene glycol 3350 17 gram 17 g PO DAILY 02/18/23 02/18/23 Unknown History oral powder packet sennosides 8.6 mg tablet (senna) 8.6 mg PO DAILY 02/18/23 02/18/23 Unknown History Exam Airway Mallampati Class: II TM Dist: >3cm Neck ROM: Full Heart: rrr Lungs: cta Assessment and Plan Assessment Anesthesia Assessment: Anesthesia Plan Discussed and Chart Reviewed Final Anesthetic Review Family History of Problems with Anesthesia: No History of Problems with Anesthesia: No NPO: Yes ASA Class: III Final Preanesthetic Review: No Changes in Pt Med Stat, Meds/Allgs Chart Reviewed and Consent Obtained/Reviewed Patient Risk: Intermediate Procedure Risk: Intermediate Anesthetic Plan Anesthetic Plan: GA Disposition: Standard PACU
--- NOTE | 2023-12-15 06:53 | HO.ECTPROC ---
ECT Procedure Note Diagnosis/Treatment Date of Service: 12/15/23 Diagnosis: Schizoaffective Disorder Previous ECT Date: 11/17/23 Treatment: Maintenance Interval Clinical Notes: pt blunted; knows name, , that he's getting ECT Time: Total time managing care of this patient today ____ minutes. ECT Settings Device: THYMATRON DGx Electrode Placement: Bitemporal Program/Pulse Width: 0.50 Energy Percent: 100 Seizure Duration By EEG (in seconds): 36 Medications Administration General Anesthetic: Etomidate (16) Muscle Relaxant: Succinylcholine (100) Ancillary Medications Anti-emetics: Zofran - Pre ECT Airway Management Airway Management: Bag Mask Ventilation Treatment Recommendations No Changes Recommended: No change Electrode Placement: Bitemporal Program/Pulse Width: 0.50 Energy Percent: 100 Notes: continue same parameters; seizure 36 seconds (did not require propofol) will schedule next ECT in 4 weeks Pt Tolerated Procedure w/o Issue: Yes
[2023-12-15 06:58] VITALS: BP 132/52; PULSE 72; RESP 18; TEMP 36.4; O2SAT 97; BMI 27.2
[2023-12-15] MEDS: Lactated Ringers 1,000 ML 50 ML IVCONT (07:00)
[2023-12-15 07:40] VITALS: BP 147/47; PULSE 85; RESP 16; TEMP 37; O2SAT 98
[2023-12-15 07:45] VITALS: BP 122/56; PULSE 84; RESP 18; O2SAT 98
[2023-12-15 07:50] VITALS: BP 132/53; PULSE 84; RESP 18; O2SAT 96
[2023-12-15 07:55] VITALS: BP 130/42; PULSE 83; RESP 18; O2SAT 95
[2023-12-15 08:10] VITALS: BP 105/66; PULSE 80; RESP 18; TEMP 37; O2SAT 97
== END 2023-12-15 08:41 | disposition home or self-care (01) ==
PROVIDERS: PCP Emergency Medicine; Visit Provider Psychiatry & Neurology Psychiatry
PROC: (CPT 90870; principal; 2023-12-15 07:00)
DX: F20.9 Schizophrenia, unspecified (principal); F01.518 Vascular dementia, unspecified severity, with other behavioral disturbance; E78.5 Hyperlipidemia, unspecified; R26.89 Other abnormalities of gait and mobility; Z79.899 Other long term (current) drug therapy; Z98.890 Other specified postprocedural states; Z79.02 Long term (current) use of antithrombotics/antiplatelets
CPT/HCPCS: 90870; J0330; J1596; J1642; J1885; J2405; J2704

== ENCOUNTER → 2023-12-15 05:44 | Outpatient (BNV) | payer MEDICARE, MEDICAID, SELFPAY | PROVIDERS: PCP Emergency Medicine; Visit Provider Psychiatry & Neurology Psychiatry | DX: F33.3 Major depressive disorder, recurrent, severe with psychotic symptoms (principal) | CPT/HCPCS: 90870 ==

== ENCOUNTER 2024-01-12 05:40 | Day surgery (SDC) | payer MEDICARE, MEDICAID, SELFPAY ==
[2024-01-12] VITALS (10 sets, daily range): BP systolic 102–161; BP diastolic 62–79; PULSE 69–102; RESP 12–20; TEMP 36.4–36.8; O2SAT 92–100
--- NOTE | 2024-01-12 07:06 | MHC.SHP ---
Pre-Procedural Eval Section A - 24 Hr Update-Section A only Date of Service: 01/12/24 The patient is an INPATIENT: No The patient has been examined within 24 hours of the surgical procedure. The History & Physical has been completed within 30 days and I have reviewed it.: Yes Section B - Complete if H&P > 30 days Chief Complaint: Major depressive disorder, recurrent, severe with Details of Present Illness: [facility] Relevant Social History: None Allergies: Allergies Allergy/AdvReac Type Severity Reaction Status Date / Time No Known Allergies Allergy Verified 07/28/23 06:20 Review of Systems Sugical H&P ROS: Negative: Cardiovascular, Respiratory and Eyes/Ears/Nose/Throat Exam Surgical H&P Exam: Normal: Heart and Normal: Lungs Plan Diagnosis/Plan: Unchanged I have reviewed the history and physical and performed a pertinent physical examination on my patient. No changes have occurred unless specified. Time Spent With Patient Time: Total time managing care of this patient today ____ minutes.
--- NOTE | 2024-01-12 07:07 | HO.ECTPROC ---
ECT Procedure Note Diagnosis/Treatment Date of Service: 01/12/24 Diagnosis: Schizoaffective Disorder Previous ECT Date: 12/15/23 Treatment: Maintenance Interval Clinical Notes: pt blunted; knows name, , that he's getting ECT difficult to engage with [facility] calls placed Time: Total time managing care of this patient today ____ minutes. ECT Settings Device: THYMATRON DGx Electrode Placement: Bitemporal Program/Pulse Width: 0.50 Energy Percent: 100 Seizure Duration By EEG (in seconds): 32 Medications Administration General Anesthetic: Etomidate (16) Muscle Relaxant: Succinylcholine (100) Ancillary Medications Anti-emetics: Zofran - Pre ECT Airway Management Airway Management: Bag Mask Ventilation Treatment Recommendations No Changes Recommended: No change Electrode Placement: Bitemporal Program/Pulse Width: 0.50 Energy Percent: 100 Notes: trying to reach psych provider see if we can taper ect further ben order expires in january Pt Tolerated Procedure w/o Issue: Yes
--- NOTE | 2024-01-12 07:08 | P.CONAN_ITS ---
[facility] Active Problems Active Problems: All Active Problems Vascular dementia of acute onset with behavioral disturbance (Acute) Past Medical History Medical History Gait instability Trimalleolar fracture Back pain Constipation Tubular adenoma Hyperlipidemia Overweight Schizophrenia Vascular dementia of acute onset with behavioral disturbance Family History Family history of problems with anesthesia: No Surgical History History of Problems with Anesthesia: No Social History Social History Patient Tobacco Use Status: Never used Tobacco Advance Directives: No Advance Directives Information Provided: Yes Meds Allergies Allergy/AdvReac Type Severity Reaction Status Date / Time No Known Allergies Allergy Verified 07/28/23 06:20 Home Medications ?Medication ?Instructions ?Recorded ?Confirmed ?Last Taken ?Type atorvastatin 10 mg tablet 10 mg PO DAILY 02/18/23 02/18/23 Unknown History clozapine 250 mg PO DAILY 02/18/23 02/18/23 Unknown History divalproex 500 mg tablet,extended 500 mg PO BID 02/18/23 02/18/23 Unknown History release 24 hr fluoxetine 40 mg capsule 40 mg PO DAILY 02/18/23 02/18/23 Unknown History gabapentin 400 mg tablet 800 mg PO TID 02/18/23 02/18/23 Unknown History glycopyrrolate 2 mg tablet 2 mg PO BID 02/18/23 02/18/23 Unknown History lorazepam 0.5 mg tablet 0.5 mg PO QPM 02/18/23 02/18/23 Unknown History lorazepam 1 mg tablet 1 mg PO QAM 02/18/23 02/18/23 Unknown History lorazepam 2 mg tablet 2 mg PO DAILY PRN Anxiety 02/18/23 02/18/23 Unknown History polyethylene glycol 3350 17 gram 17 g PO DAILY 02/18/23 02/18/23 Unknown History oral powder packet sennosides 8.6 mg tablet (senna) 8.6 mg PO DAILY 02/18/23 02/18/23 Unknown History Exam Height,Weight and Vital Signs: Last Vital Signs Temp 97.6 F 01/12/24 06:17 Pulse 74 01/12/24 06:17 Resp 16 01/12/24 06:17 BP 142/71 H 01/12/24 06:17 Pulse Ox 96 01/12/24 06:17 O2 Del Method Room Air 01/12/24 06:17 Airway Mallampati Class: II TM Dist: >3cm Neck ROM: Limited Loose/Missing/Broken Teeth: Yes, Upper and Lower Heart: RRR Lungs: CTA Assessment and Plan Assessment Anesthesia Assessment: Anesthesia Plan Discussed and Chart Reviewed Final Anesthetic Review Family History of Problems with Anesthesia: No History of Problems with Anesthesia: No NPO: Yes ASA Class: II Final Preanesthetic Review: Meds/Allgs Chart Reviewed, Consent Obtained/Reviewed and Anes Risks/Benef Reviewed Patient Risk: Low Procedure Risk: Intermediate Anesthetic Plan Anesthetic Plan: GA Disposition: Standard PACU
== END 2024-01-12 09:11 | disposition home or self-care (01) ==
PROVIDERS: PCP Emergency Medicine; Visit Provider Psychiatry & Neurology Psychiatry
PROC: (CPT 90870; principal; 2024-01-12 07:00)
DX: F25.9 Schizoaffective disorder, unspecified (principal); F01.518 Vascular dementia, unspecified severity, with other behavioral disturbance; R26.81 Unsteadiness on feet; E78.5 Hyperlipidemia, unspecified; M54.9 Dorsalgia, unspecified; G89.29 Other chronic pain; E66.3 Overweight; Z79.899 Other long term (current) drug therapy; Z99.89 Dependence on other enabling machines and devices
CPT/HCPCS: 90870; J0330; J1642; J1885; J2405

== ENCOUNTER → 2024-01-12 05:40 | Outpatient (BNV) | payer MEDICARE, MEDICAID, SELFPAY | PROVIDERS: PCP Emergency Medicine; Visit Provider Psychiatry & Neurology Psychiatry | DX: F33.3 Major depressive disorder, recurrent, severe with psychotic symptoms (principal) | CPT/HCPCS: 90870 ==

== ENCOUNTER 2024-04-22 18:28 | Inpatient (IN) | payer MEDICARE, MEDICAID, SELFPAY ==
[2024-04-22] VITALS (18 sets, daily range): BP systolic 79–135; BP diastolic 34–75; PULSE 90–135; RESP 20–33; TEMP 37.3–40.2; O2SAT 86–100; BMI 21.5
--- NOTE | 2024-04-22 | ECG_ITS ---
Test Reason : TACHYCARDIA Blood Pressure : / mmHG Vent. Rate : 119 BPM Atrial Rate : 119 BPM P-R Int : 152 ms QRS Dur : 080 ms QT Int : 342 ms P-R-T Axes : 057 -83 054 degrees QTc Int : 481 ms Sinus tachycardia Left axis deviation Pulmonary disease pattern Inferior infarct , age undetermined Abnormal ECG When compared with ECG of 22-APR-2024 18:49, Heart rate has increased Referred By: Margarita Parrish Electronically Signed By:DIMAS DORMAN
--- NOTE | ~2024-04-22 | XR_ITS ---
EXAMINATION: XR CHEST CLINICAL INFORMATION: Altered mental status. COMPARISON: None available. TECHNIQUE: Portable AP view of the chest was obtained. FINDINGS: The study is significantly limited by portable technique, low lung volumes, and overlying leads. The tip of a right internal jugular chest port catheter projects over the junction of the superior vena cava and right atrium. No clinical history is provided as to why the patient would have a chest port. Recommend clinical correlation. Question patchy right lung interstitial prominence. No consolidation identified. The right lung appears clear. No effusion or pneumothorax is seen on either side. The cardiac silhouette appears normal in size. Mild degenerative changes of the spine. XR/XR chest 1V IMPRESSION: Findings as above. Electronically signed by: Torres Rico MD 04/22/2024 09:08 PM EDT
--- NOTE | ~2024-04-22 | CT_ITS ---
EXAMINATION: CT ABDOMEN AND PELVIS WITH CONTRAST CLINICAL INFORMATION: Altered mental status. Uncontrollable shaking. Fever. COMPARISON: None available. TECHNIQUE: Multidetector volumetric images were obtained from the superior aspect of the liver through the pubic symphysis following administration 85 mL of Omnipaque 350 intravenous contrast. Sagittal and coronal reformatted images were obtained on the technologist's workstation. Oral contrast: No This CT examination was performed using dose optimization techniques as appropriate, variously including the following: *Automated exposure control *Adjustment of mA and/or kV according to patient size (this includes techniques or standardized protocols for targeted exams where dose is matched to indication/reason for exam; i.e. extremities or head) *Use of iterative reconstruction technique DLP: 864 mGy-cm FINDINGS: LUNG BASES: Right lower lobe dependent alveolar and interstitial infiltrate. No pleural effusion identified. Mild elevation of the right hemidiaphragm. LIVER, GALLBLADDER, AND BILIARY TREE: The liver appears unremarkable in size, shape, and attenuation. No focal hepatic lesion or biliary ductal dilatation is appreciated. Subcentimeter gallstones. No evidence of gallbladder wall thickening or pericholecystic inflammatory change. PANCREAS: Unremarkable SPLEEN: Unremarkable ADRENAL GLANDS: Unremarkable KIDNEYS AND URETERS: Approximately 3 cm, benign, exophytic right mid to lower pole simple renal cyst for which no further dedicated follow-up imaging as indicated. The kidneys otherwise appear unremarkable in size, shape, and attenuation. No hydronephrosis, hydroureter, or calculi seen. BLADDER: Tip and balloon of presumed Lawton catheter within the urinary bladder, which is collapsed. GASTROINTESTINAL TRACT: Suspect small hiatus hernia. Small bowel appears grossly unremarkable. Moderate stool throughout the transverse, descending, and sigmoid colon. Small amount of stool and air within the rectal vault. No evidence of diverticulosis. CHEST WALL/ABDOMINAL WALL: Bilateral gynecomastia. No significant hernia is appreciated. LYMPH NODES: No evidence of adenopathy by size criteria. VASCULAR: Unremarkable PELVIC VISCERA: Unremarkable OSSEOUS STRUCTURES: Degenerative changes of the spine and hips. CT/CT abdomen pelvis w IV con IMPRESSION: Right lower lobe dependent alveolar and interstitial infiltrate suggesting pneumonia. Moderate stool throughout the transverse, descending, and sigmoid colon. Small amount of stool and air within the rectal vault. Additional findings as above. Electronically signed by: Torres Rico MD 04/22/2024 10:33 PM EDT RP
--- NOTE | 2024-04-22 18:34 | ECG_ITS ---
Test Reason : HYPOXIC Blood Pressure : / mmHG Vent. Rate : 094 BPM Atrial Rate : 094 BPM P-R Int : 142 ms QRS Dur : 082 ms QT Int : 368 ms P-R-T Axes : 053 -88 040 degrees QTc Int : 460 ms Normal sinus rhythm Left axis deviation Pulmonary disease pattern Abnormal ECG When compared with ECG of 25-AUG-2023 07:50, No significant change was found Referred By: Vickie Fitzpatrick Electronically Signed By:DIMAS DORMAN
[2024-04-22] MEDS: 0.9 % Sodium Chloride 2,280 ML 2280 ML IV (19:00)
--- NOTE | 2024-04-22 19:00 | PC.NURSE ---
late entry- this rn assumed care of pt, pt noted to be meeting sepsis criteria, Lilliam BROWER at bedside. sepsis alert called on pt. attempting to gain IV access and labs on pt due to being hard stick. pt placed on oxymask 2L for comfort. pt skin warm to touch and clammy. pt sinus tachy on monitor 100-110. pt noted to be febrile.
[2024-04-22 19:19] LABS: MANUAL DIFF FLAG NO
--- NOTE | 2024-04-22 19:22 | PC.NURSE ---
[facility], [facility] the pt received the [facility] vaccine last night and woke this morning with a temperature 102.8 axillary, new cough, hypotension and hypoxia with O2 in the mid 80s. pt minimally responsive upon arrival to ED. rectal temp with rectal prob of 104.2, O2 91% on RA, BP low and pt tachypnic. this RN notified Lilliam BROWER that pt was meeting sepsis protocol. Lilliam BROWER at bedside to assess pt. pt a difficult poke, Lilliam Placed U/s guided 18G in RAC - sepsis bolus fluids started approx 900 after IV line placed. Lilliam BROWER attempting second IV line. pt with minimal information from [facility], unsure of his baseline but informed EMS that this isn't his baseline . pt currently responsive to pain only. plan for blood cultures, Abx, temp sensing varela cath, fluid bolus. pts paperwork that he came with does not include an advanced directive, HCP on file and code status states attempt CPR no official advanced directive available .
--- NOTE | 2024-04-22 19:26 | PC.NURSE ---
Lilliam BROWER at bedside, okay to start antibiotics with one set of cultures at this time. x5 attempts made to obtain second set of cultures. Ultra sound guided 18G placed in right ac, Lilliam BROWER attempting to place a second line.
[2024-04-22 19:27] LABS: INTERNATIONAL NORM RATIO 1.2 (0.9-1.1); Prothrombin Time 14.1 SEC (10.9-12.4)
[2024-04-22] MEDS: cefTRIAXone sodium 2 GM in 0.9 % Sodium Chloride 50 ML IV (19:29)
[2024-04-22 19:30] LABS: Lactic Acid 1.9 mmol/L (0.5-2.0)
--- NOTE | 2024-04-22 19:32 | PC.NURSE ---
temp sensing varela placed at this time, pt voided dark yellow foul smelling urine 100ml. urine sample obtained. Lilliam BROWER at bedside continuing to attempt access and second set of blood cultures.
[2024-04-22 19:34] LABS: Basophils Percent Auto 0.1 % (0-2); Hematocrit 39.3 % (42.0-52.0); Hemoglobin 13.9 g/dl (14.0-18.0); Imm Gran Abs Auto 0.04 X10*3/uL (0.00-0.03); Imm Gran Pct Auto 0.6 % (0.0-0.4); Lymphocytes Absolute Auto 1.1 X10*3/uL (1.2-4.9); Lymphocytes Percent Auto 16.5 % (20-40); Mean Corpuscular HGB Conc 35.4 g/dl (31.0-36.0); Mean Corpuscular Hemoglobin 33.3 pg (27.0-33.0); Mean Corpuscular Volume 94.2 fL (80.0-98.0); Mean Platelet Volume 9.5 fL (9.4-12.4); Monocytes Absolute Auto 0.4 X10*3/uL (0.1-1.2); Neutrophils Absolute Auto 5.1 x10*3/uL (2.0-8.3); Neutrophils Percent Auto 76.8 % (45-73); Platelet Count 152 X10*3/uL (160-400); Red Blood Count 4.17 X10*6/uL (4.60-5.80); Red Cell Distribution Width 12.8 % (11.0-16.0); White Blood Count 6.7 X10*3/uL (4.8-10.8)
[2024-04-22 19:38] LABS: Alanine Aminotransferase 20 U/L (0-40); Albumin Level 3.8 g/dL (3.5-5.0); Alkaline Phosphatase 68 U/L (39-117); Anion Gap 14 (12-20); Aspartate Amino Transferase 30 U/L (5-37); Bilirubin Direct 0.5 mg/dL (0.0-0.5); Bilirubin Total 1.5 mg/dL (0.0-1.0); Blood Urea Nitrogen 17 mg/dL (9-16); Calcium 9.2 mg/dL (8.4-10.2); Carbon Dioxide 25 mmol/L (22-29); Chloride 102 mmol/L (96-108); Creatinine Clr Calc Pharmacy 66.8; Estimated Glomerular Filt Rate > 60; Glucose Random 155 mg/dL (60-115); Lipase 18 U/L (8-78); Potassium 4.1 mmol/L (3.3-5.1); Sodium 137 mmol/L (135-145); Total Protein 7.8 g/dL (6.5-8.0)
[2024-04-22 19:41] LABS: Appearance Urine Cloudy; Color Urine Dark Yellow; Glucose Urine UA Negative (Negative); Leukocyte Esterase Urine Moderate (2+) (Negative); Nitrite Urine Negative (Negative); Specific Gravity - Urine 1.025 (1.005-1.025); UMIC TRIGGER UACC YES; Urine Blood Negative (Negative); Urine Ketones 15 mg/dL (Negative); Urine Protein 30 (1+) mg/dL (Neg-Trace)
[2024-04-22 19:45] LABS: Troponin-I High Sensitivity 2.7 ng/L (<3.5-35.0)
[2024-04-22] MEDS: Acetaminophen Supp 325 MG SUPP.RECT 975 MG PR (19:48)
[2024-04-22 19:53] LABS: Bacteria Urine 4+ (None Seen); Hyaline Casts Urine 0-2 /LPF (0-2); Squamous Epithelial Cell Urine 0-2 /HPF (0-2); UACC Culture Trigger YES; WBC Urine 21-50 /HPF (0-5)
--- NOTE | 2024-04-22 19:54 | PC.NURSE ---
rectal tylenol given at this time, pt noted to be incontinent of urine, assisted with incontinence care. continuing to attempt second set of blood cultures.
[2024-04-22 19:59] LABS: Influenza A PCR NEGATIVE (Negative); Influenza B PCR NEGATIVE (Negative); Resp Syncy Virus RNA Qual PCR NEGATIVE (Negative); SARS COV2 PCR INHOUSE POSITIVE (Negative)
--- NOTE | 2024-04-22 20:04 | PC.NURSE ---
second set of blood cultures obtained and sent to lab at this time. provider aware. hour one vital signs documented at this time.
[2024-04-22 20:09] LABS: Glucose, Whole Blood 120 mg/dL (60-115)
--- NOTE | 2024-04-22 20:25 | PC.NURSE ---
pt appears more alert at this time, pt unsure of what it going on, situation explained to pt, pt able to respond and is answering some questions.
[2024-04-22] MEDS: Norepinephrine Bitartrate/D5W 8 MG/250 ML PLAST..BAG 7.13 MG IVCONT (21:00)
--- NOTE | 2024-04-22 21:00 | PC.NURSE ---
pt noted to have port at this time. Lilliam BROWER at bedside reports to access port, pt reports he has his port accessed for pain management. this RN contacted facility who states they are unsure why pt has port in place, facility reports he is alert but can be confused at times.
--- NOTE | 2024-04-22 21:18 | PC.NURSE ---
levophed started per sep, pt noted to become tachycardic in the 130,s. sergio pa aware, levophed stopped, ekg obtained.
[2024-04-22] MEDS: 0.9 % Sodium Chloride 1,000 ML 999 ML IV ×2 (21:26)
[2024-04-22] MEDS: Albumin Human 25 % 100 ML IV (21:26)
--- NOTE | 2024-04-22 21:29 | PC.NURSE ---
due to pt heart rate, levophed d/c. pt started on albumin at this time.
--- NOTE | 2024-04-22 21:57 | PC.NURSE ---
pt taken to CT at this time, portable monitor brought with pt, vital signs updated. provider aware.
[2024-04-22] MEDS: iohexoL 350 MG/ML 100 ML INFUS..BTL 85 ML IV (21:59)
[2024-04-22] MEDS: Ketorolac Tromethamine 15 MG/ML VIAL IVPUSH (22:15)
--- NOTE | 2024-04-22 22:15 | PC.NURSE ---
pt noted to be febrile, Lilliam BROWER aware, pt medicated per mar.
--- NOTE | 2024-04-22 22:52 | PM.IMHP ---
History of Present Illness Date of Service: 04/22/24 Chief Complaint: Fever plus altered mentation This is a 69-year-old male with pertinent history of hypertension, mood disorder, vascular dementia with behavioral disturbance, seizure disorder, mixed hyperlipidemia who was sent to the emergency department for evaluation of fevers and altered mentation. Patient is drowsy at the time of my evaluation, is only eye opening to verbal stimulus. Unable to obtain history from the patient. Unknown baseline mentation. History obtained with the help of ER provider and chart review. In the emergency department, patient was found to be septic and imaging with right lower lobe infiltrate. Vomitus noted around mouth, concerning for aspiration. Urine concerning for UTI. Unable to obtain review of systems. In the emergency department, patient was resuscitated with IV crystalloids and given empiric IV antibiotics Review of Systems Review of Systems: Yes Unobtainable due to mental condition and Unobtainable due to mental status PMFSH Medical History Gait instability Trimalleolar fracture Back pain Constipation Tubular adenoma Hyperlipidemia Overweight Schizophrenia Vascular dementia of acute onset with behavioral disturbance Pertinent family history: Unable to obtain Social History Patient Tobacco Use Status: Never used Tobacco Advance Directives: Yes Advance Directives Information Provided: No Advance Directives on File: No Do you have a plan to hurt others: No Plan Meds Allergies Allergy/AdvReac Type Severity Reaction Status Date / Time No Known Allergies Allergy Verified 04/22/24 18:51 Active Medications: Current Medications Norepinephrine Bitartrate (Levophed) 8 mg in 250 mls @ 0 mls/hr IVCONT .Q0M [facility]; Protocol Last Titration: 04/22/24 21:14 Dose: 0 mcg/kg/min, 0 mls/hr Ampicillin Sodium/Sulbactam (Sodium 3 gm/ Sodium Chloride) 100 mls @ 200 mls/hr IV Q6H [facility] Home Medications ?Medication ?Instructions ?Recorded ?Confirmed ?Last Taken ?Type atorvastatin 10 mg tablet 10 mg PO DAILY 02/18/23 02/18/23 Unknown History clozapine 250 mg PO DAILY 02/18/23 02/18/23 Unknown History divalproex 500 mg tablet,extended 500 mg PO BID 02/18/23 02/18/23 Unknown History release 24 hr fluoxetine 40 mg capsule 40 mg PO DAILY 02/18/23 02/18/23 Unknown History gabapentin 400 mg tablet 800 mg PO TID 02/18/23 02/18/23 Unknown History glycopyrrolate 2 mg tablet 2 mg PO BID 02/18/23 02/18/23 Unknown History lorazepam 0.5 mg tablet 0.5 mg PO QPM 02/18/23 02/18/23 Unknown History lorazepam 1 mg tablet 1 mg PO QAM 02/18/23 02/18/23 Unknown History lorazepam 2 mg tablet 2 mg PO DAILY PRN Anxiety 02/18/23 02/18/23 Unknown History polyethylene glycol 3350 17 gram 17 g PO DAILY 02/18/23 02/18/23 Unknown History oral powder packet sennosides 8.6 mg tablet (senna) 8.6 mg PO DAILY 02/18/23 02/18/23 Unknown History Physical Exam Vital Signs and Narrative: Vital Signs: Last Vital Signs Temp 100.6 F H 04/22/24 22:06 Pulse 129 H 04/22/24 22:06 Resp 22 H 04/22/24 22:06 BP 97/75 04/22/24 22:06 Pulse Ox 96 04/22/24 22:06 O2 Del Method Room Air 04/22/24 22:06 O2 Flow Rate 2 04/22/24 20:23 BMI result Body Mass Index 21.5 Elderly male lying in bed in no distress Neck supple, no JVD Regular rate and rhythm, S1-S2 heard Right-sided crackles present Abdomen soft nontender, no guarding, no rigidity Patient is drowsy and only eye opening to verbal stimulus, not participating in conversation, not following commands Psych: Lethargic No pedal edema Results Labs 04/22/24 19:06 04/22/24 19:06 Labs: Laboratory Results - last 24 hr 04/22/24 04/22/24 04/22/24 19:06 19:09 19:31 MCV 94.2 MCH 33.3 H MCHC 35.4 RDW 12.8 Plt Count 152 L MPV 9.5 Immature Gran % (Auto) 0.6 H Neut % (Auto) 76.8 H Lymph % (Auto) 16.5 L B[place]soe % (Auto) 6.0 Eos % (Auto) 0.0 Baso % (Auto) 0.1 Lymph # (Auto) 1.1 L [place] # (Auto) 0.4 Eos # (Auto) 0.0 Baso # (Auto) 0.0 Abs Immat Gran (auto) 0.04 H Absolute Neuts (auto) 5.1 Absolute Nucleated RBC 0.000 Nucleated RBC % (auto) 0.0 Hold Purple Top SEE NOTE PT 14.1 H INR 1.2 H Anion Gap 14 Estim Creat Clear Calc 66.8 Estimated GFR > 60 POC Glucose Random Glucose 155 H Lactic Acid 1.9 Calcium 9.2 D Magnesium 2.0 Total Bilirubin 1.5 H Direct Bilirubin 0.5 AST 30 ALT 20 Alkaline Phosphatase 68 Troponin I High Sens 2.7 Total Protein 7.8 Albumin 3.8 Lipase 18 Hold Green Top See Note Urine Color Dark Yellow Urine Appearance Cloudy Urine pH 6.0 Ur Specific [place] 1.025 Urine Protein 30 (1+) H Urine Glucose (UA) Negative Urine Ketones 15 Urine Blood Negative Urine Nitrite Negative Ur Leukocyte Esterase Moderate (2+) H Urine RBC 3-5 H Urine WBC 21-50 H Ur Squamous Epith Cells 0-2 Urine Bacteria 4+ Hyaline Casts 0-2 Influenza Type A (PCR) NEGATIVE Influenza Type B (PCR) NEGATIVE RSV RNA Qual (PCR) NEGATIVE SARS-CoV-2 RNA (RT-PCR) POSITIVE A 04/22/24 19:48 MCV MCH MCHC RDW Plt Count MPV Immature Gran % (Auto) Neut % (Auto) Lymph % (Auto) Bledsoe % (Auto) Eos % (Auto) Baso % (Auto) Lymph # (Auto) Bledsoe # (Auto) Eos # (Auto) Baso # (Auto) Abs Immat Gran (auto) Absolute Neuts (auto) Absolute Nucleated RBC Nucleated RBC % (auto) Hold Purple Top PT INR Anion Gap Estim Creat Clear Calc Estimated GFR POC Glucose 120 H Random Glucose Lactic Acid Calcium Magnesium Total Bilirubin Direct Bilirubin AST ALT Alkaline Phosphatase Troponin I High Sens Total Protein Albumin Lipase Hold Green Top Urine Color Urine Appearance Urine pH Ur Specific [place] Urine Protein Urine Glucose (UA) Urine Ketones Urine Blood Urine Nitrite Ur Leukocyte Esterase Urine RBC Urine WBC Ur Squamous Epith Cells Urine Bacteria Hyaline Casts Influenza Type A (PCR) Influenza Type B (PCR) RSV RNA Qual (PCR) SARS-CoV-2 RNA (RT-PCR) Imaging Radiologist's Impressions: Impressions Chest X-Ray 04/22/24 18:34 IMPRESSION: Findings as above. Electronically signed by: Torres Rico MD 04/22/2024 09:08 PM EDT RP Abdomen/Pelvis CT 04/22/24 19:47 IMPRESSION: Right lower lobe dependent alveolar and interstitial infiltrate suggesting pneumonia. Moderate stool throughout the transverse, descending, and sigmoid colon. Small amount of stool and air within the rectal vault. Additional findings as above. Electronically signed by: Torres Rico MD 04/22/2024 10:33 PM EDT RP Assessment and Plan (1) Sepsis: Status: Acute (2) Aspiration pneumonia: Status: Acute (3) Acute UTI: Status: Acute Plan This is a 69-year-old male with pertinent history of hypertension, mood disorder, vascular dementia with behavioral disturbance, seizure disorder, mixed hyperlipidemia who was sent to the emergency department for evaluation of fevers and altered mentation. #. Sepsis and acute metabolic encephalopathy due to aspiration pneumonia + acute UTI: Resuscitated with IV crystalloids. Initiating IV Unasyn. Lactic acid and blood culture obtained. NPO until speech eval #. COVID-19 infection: Patient not hypoxic. Defer steroids #. Mood disorder/vascular dementia with behavioral disturbance: Resume p.o. mood stabilizers once able to take p.o. Med rec pending DVT prophylaxis with Lovenox Full code Admit as inpatient and will require two night minimum hospital stay for IV antibiotics, monitoring of mentation (as above), which is not possible in a lesser acute setting. Quality Stroke Does the patient have a stroke diagnosis?: No VTE Prior VTE?: No VTE Risk Level:: Medical - moderate - high VTE Device Contraindication: Treatment Not Indicated VTE Drug Contraindication: N/A - Med Ordered
--- NOTE | 2024-04-22 22:53 | ED_ITS ---
HPI - Fever General Chief Complaint: Fever Stated Complaint: fever,weakness,ams, ?sepsis, covid shot yesterday Time Seen by Provider: 04/22/24 18:52 Source: patient Limitations: altered mental status History of Present Illness ED Provider: Margarita Parrish PA-C HPI Narrative: 69-year-old male with history of vascular dementia with behavioral disturbance, chronic pain, presents from [facility] with fevers x1 day. Per EMS, he was hypoxic at the nursing facility, hypotensive and had a productive cough. Patient complains of abdominal pain with nausea /vomiting. History limited secondary to patient's dementia. Related Data Home Medications ?Medication ?Instructions ?Recorded ?Confirmed atorvastatin 10 mg tablet 10 mg PO DAILY 02/18/23 02/18/23 clozapine 250 mg PO DAILY 02/18/23 02/18/23 divalproex 500 mg tablet,extended 500 mg PO BID 02/18/23 02/18/23 release 24 hr fluoxetine 40 mg capsule 40 mg PO DAILY 02/18/23 02/18/23 gabapentin 400 mg tablet 800 mg PO TID 02/18/23 02/18/23 glycopyrrolate 2 mg tablet 2 mg PO BID 02/18/23 02/18/23 lorazepam 0.5 mg tablet 0.5 mg PO QPM 02/18/23 02/18/23 lorazepam 1 mg tablet 1 mg PO QAM 02/18/23 02/18/23 lorazepam 2 mg tablet 2 mg PO DAILY PRN Anxiety 02/18/23 02/18/23 polyethylene glycol 3350 17 gram 17 g PO DAILY 02/18/23 02/18/23 oral powder packet sennosides 8.6 mg tablet (senna) 8.6 mg PO DAILY 02/18/23 02/18/23 Allergies Allergy/AdvReac Type Severity Reaction Status Date / Time No Known Allergies Allergy Verified 04/22/24 18:51 Review of Systems 2 Review of Systems: Yes all other systems are reviewed and are negative Constitutional: Constitutional: Reports fever(s) Respiratory: Respiratory: Reports cough Gastrointestinal: Gastrointestinal: Reports abdominal pain, Reports nausea and Reports vomiting PMFSH Past Medical History Attestation statement: The following information was validated with the patient. Medical History Gait instability Trimalleolar fracture Back pain Constipation Tubular adenoma Hyperlipidemia Overweight Schizophrenia Vascular dementia of acute onset with behavioral disturbance Social History Social History Patient Tobacco Use Status: Never used Tobacco Advance Directives: Yes Advance Directives Information Provided: No Advance Directives on File: No Do you have a plan to hurt others: No Plan Nutrition Risks: No Nutritional Risk Physical Exam 2 Vital Signs: Vital Signs: Last Vital Signs Temp 98.1 F 04/23/24 01:00 Pulse 84 04/23/24 01:00 Resp 18 04/23/24 01:00 BP 94/49 L 04/23/24 01:00 Pulse Ox 98 04/23/24 01:00 O2 Del Method Room Air 04/23/24 01:00 O2 Flow Rate 2 04/22/24 20:23 BMI result Body Mass Index 21.5 Const: Other: Awake, cachectic, ill in appearance, Orientation/consciousness: oriented to person HEENT: Other: dry oral mucosa, dry emesis on his face Resp: Other: Rhonchorous posterior villagran, poor inspiratory effort Cardio: Other: Normal peripheral perfusion GI: Other: Abdomen is soft, nondistended, mild generalized tenderness with palpation no guarding Skin: Other: Cool, pale, no rash Neuro: General: oriented to person, no focal motor deficits and CN's II-XI intact bilaterally Psych: Other: Cooperative Course Reevaluation(s) Reevaluation #1: The patient received 3 L of IV fluid, and completed his ceftriaxone. He initially appeared to be volume responsive, however his pressures have dropped again, his map is below 60, we will start Levophed. Time: 21:00 Reevaluation #2: Patient rapidly became tachycardic, perhaps he is still volume down, I still can not get a great view of his IVC, we will give an additional 2 L bolus with albumin.... CT scan completed not read..... His temperature has been labile as well, it is too soon to give him additional Tylenol, we will give 15 mg of Toradol Time: 21:10 Reevaluation #3: CT scan back, no acute intra-abdominal pathology, I was going to add azithromycin, and then I recalled my concern for aspiration pneumonia, however the inpatient team was already placing orders for Unasyn patient's fever is not yet responding to the Toradol, we are placing ice packs in his axilla to note, his pressures have improved, his map is in the 80s, this is the most stable he has been, he will be admitted to the Medicine Service he does not require ICU level of care Time: 23:00 Medications Administered Generic Name Dose Route Start Last Admin Trade Name Freq PRN Reason Stop Dose Admin Enoxaparin Sodium 40 mg 04/22/24 23:00 04/22/24 23:20 Enoxaparin Sodium 40 Mg/0.4 Ml Syringe SUBCUT 40 mg Q24H JANICE Administration Ampicillin Sodium/Sulbactam 100 mls @ 200 mls/hr 04/22/24 23:00 04/23/24 00:08 Sodium 3 gm/ Sodium Chloride IV Infused Q6H JANICE Infusion Sodium Chloride 3 ml 04/23/24 00:00 04/23/24 00:08 0.9 % Sodium Chloride Flush 3 Ml Syringe IVFLUSH Not Given QSHIFT JANICE Discontinued Medications Generic Name Dose Route Start Last Admin Trade Name Freq PRN Reason Stop Dose Admin Acetaminophen 975 mg 04/22/24 18:52 04/22/24 19:48 Acetaminophen Supp 325 Mg Supp.Rect WA 04/22/24 18:53 975 mg ONCE ONE Administration Sodium Chloride 1,000 mls @ 999 mls/hr 04/22/24 19:00 04/22/24 19:00 Ns IV 04/22/24 20:00 Not Given .Q1H1M JANICE Ceftriaxone Sodium 2 gm/ 50 mls @ 100 mls/hr 04/22/24 18:52 04/22/24 19:59 Sodium Chloride IV 04/22/24 19:21 Infused ONCE ONE Infusion Sodium Chloride 2,280 mls @ 2,280 mls/hr 04/22/24 19:00 04/22/24 20:43 Ns 30 ml/kg infuse over 1 hr (2280 ml) 04/22/24 19:59 Infused IV Infusion .Q1H STA Norepinephrine Bitartrate 8 mg in 250 mls @ 0 mls/hr 04/22/24 20:45 04/22/24 22:54 Levophed IVCONT Infused .Q0M JANICE Titration Protocol Per Protocol Sodium Chloride 1,000 mls @ 999 mls/hr 04/22/24 21:30 04/22/24 22:27 Ns IV 04/22/24 22:30 Infused .Q1H1M JANICE Infusion Sodium Chloride 1,000 mls @ 999 mls/hr 04/22/24 21:30 04/22/24 22:27 Ns IV 04/22/24 22:30 Infused .Q1H1M JANICE Infusion Albumin Human 100 mls @ 100 mls/hr 04/22/24 21:21 04/22/24 22:26 Kedbumin 25 % IV 04/22/24 22:20 Infused ONCE ONE Infusion Acetaminophen 1,000 mg in 100 mls @ 400 mls/hr 04/22/24 22:50 04/22/24 23:37 Ofirmev IV 04/22/24 23:04 Infused ONCE ONE Infusion Iohexol 85 ml 04/22/24 21:58 04/22/24 21:59 Iohexol 350 Mg/Ml 100 Ml Infus..Btl IV 04/22/24 21:59 85 ml ONCE ONE Administration Ketorolac Tromethamine 15 mg 04/22/24 22:07 04/22/24 22:15 Ketorolac Tromethamine 15 Mg/Ml Vial IVPUSH 04/22/24 22:08 15 mg ONCE ONE Administration Procedures Procedure Narrative Procedure Narrative: Ultrasound-guided IV 18 gauge 1-3/4 inch catheter placed in the right upper extremity. Adequate blood return, flushes well secured with Tegaderm Medical Decision Making Medical Decision Making MDM Narrative: 69-year-old male with history of vascular dementia with behavioral disturbance, chronic pain, presents from [facility] with fevers x1 day. Per EMS, he was hypoxic at the nursing facility, hypotensive and had a productive cough. Patient complains of abdominal pain with nausea /vomiting. History limited secondary to patient's dementia. Problem: Vascular dementia History: Per patient which is limited, some history obtained from nursing records and EMS I have considered the following differential diagnoses: Sepsis, pneumonia, UTI, viral syndrome, acute intra-abdominal pathology Plan: The patient is a sepsis alert. I performed bedside ultrasound, his contractility is grossly normal, I can not find his IVC. He will receive the weight base 30 mL per kg IV fluid resuscitation. We are starting empiric ceftriaxone. Screening labs including blood cultures and lactate were obtained rapidly. We will be obtaining a chest x-ray, urinalysis. He is febrile rectally, we will give a rectal suppository of Tylenol, and place a temperature sensing Law[place] catheter, we can also monitor his urine output. He is hypotensive, mildly tachycardic. We will obtain an EKG. Our initial report was that the patient was hypoxic, however he is not, he is 94-96 on room air. Given the rhonchi on exam, and the drive home on his face, I am concerned for aspiration pneumonia. We will see with the chest x-ray shows. I have independently reviewed the following tests: Labs: No overall leukocytosis, however he has a left shift, not anemic, no electrolyte abnormality, lactate 1.9, urine not infected, viral panel positive for COVID Chest x-ray:CLINICAL INFORMATION: Altered mental status. COMPARISON: None available. TECHNIQUE: Portable AP view of the chest was obtained. FINDINGS: The study is significantly limited by portable technique, low lung volumes, and overlying leads. The tip of a right internal jugular chest port catheter projects over the junction of the superior vena cava and right atrium. No clinical history is provided as to why the patient would have a chest port. Recommend clinical correlation. Question patchy right lung interstitial prominence. No consolidation identified. The right lung appears clear. No effusion or pneumothorax is seen on either side. The cardiac silhouette appears normal in size. Mild degenerative changes of the spine. XR/XR chest 1V IMPRESSION: Findings as above. Electronically signed by: Torres Rico MD 04/22/2024 09:08 PM EDT EKG: Normal sinus rhythm, rate of 94, no ischemic changes no ectopy, QTC 460 Repeat EKG : Sinus tachycardia, rate of 119, no ischemic changes, no ectopy, QTC 481 CT abdomen and pelvis:T ABDOMEN AND PELVIS WITH CONTRAST CLINICAL INFORMATION: Altered mental status. Uncontrollable shaking. Fever. COMPARISON: None available. TECHNIQUE: Multidetector volumetric images were obtained from the superior aspect of the liver through the pubic symphysis following administration 85 mL of Omnipaque 350 intravenous contrast. Sagittal and coronal reformatted images were obtained on the technologist's workstation. Oral contrast: No This CT examination was performed using dose optimization techniques as appropriate, variously including the following: *Automated exposure control *Adjustment of mA and/or kV according to patient size (this includes techniques or standardized protocols for targeted exams where dose is matched to indication/reason for exam; i.e. extremities or head) *Use of iterative reconstruction technique DLP: 864 mGy-cm FINDINGS: LUNG BASES: Right lower lobe dependent alveolar and interstitial infiltrate. No pleural effusion identified. Mild elevation of the right hemidiaphragm. LIVER, GALLBLADDER, AND BILIARY TREE: The liver appears unremarkable in size, shape, and attenuation. No focal hepatic lesion or biliary ductal dilatation is appreciated. Subcentimeter gallstones. No evidence of gallbladder wall thickening or pericholecystic inflammatory change. PANCREAS: Unremarkable SPLEEN: Unremarkable ADRENAL GLANDS: Unremarkable KIDNEYS AND URETERS: Approximately 3 cm, benign, exophytic right mid to lower pole simple renal cyst for which no further dedicated follow-up imaging as indicated. The kidneys otherwise appear unremarkable in size, shape, and attenuation. No hydronephrosis, hydroureter, or calculi seen. BLADDER: Tip and balloon of presumed Lawton catheter within the urinary bladder, which is collapsed. GASTROINTESTINAL TRACT: Suspect small hiatus hernia. Small bowel appears grossly unremarkable. Moderate stool throughout the transverse, descending, and sigmoid colon. Small amount of stool and air within the rectal vault. No evidence of diverticulosis. CHEST WALL/ABDOMINAL WALL: Bilateral gynecomastia. No significant hernia is appreciated. LYMPH NODES: No evidence of adenopathy by size criteria. VASCULAR: Unremarkable PELVIC VISCERA: Unremarkable OSSEOUS STRUCTURES: Degenerative changes of the spine and hips. CT/CT abdomen pelvis w IV con IMPRESSION: Right lower lobe dependent alveolar and interstitial infiltrate suggesting pneumonia. Moderate stool throughout the transverse, descending, and sigmoid colon. Small amount of stool and air within the rectal vault. Additional findings as above. Electronically signed by: Torres Rico MD 04/22/2024 10:33 PM EDT Lab Data 04/22/24 19:06 04/22/24 19:06 Labs: Lab Results 04/22/24 04/22/24 04/22/24 Range/Units 19:06 19:09 19:31 WBC 6.7 (4.8-10.8) X10*3/uL RBC 4.17 L (4.60-5.80) X10*6/uL Hgb 13.9 L (14.0-18.0) g/dl Hct 39.3 L (42.0-52.0) % MCV 94.2 (80.0-98.0) fL MCH 33.3 H (27.0-33.0) pg MCHC 35.4 (31.0-36.0) g/dl RDW 12.8 (11.0-16.0) % Plt Count 152 L (160-400) X10*3/uL MPV 9.5 (9.4-12.4) fL Immature Gran % (Auto) 0.6 H (0.0-0.4) % Neut % (Auto) 76.8 H (45-73) % Lymph % (Auto) 16.5 L (20-40) % [place] % (Auto) 6.0 (2-11) % Eos % (Auto) 0.0 (0-4) % Baso % (Auto) 0.1 (0-2) % Lymph # (Auto) 1.1 L (1.2-4.9) X10*3/uL [place] # (Auto) 0.4 (0.1-1.2) X10*3/uL Eos # (Auto) 0.0 (0.0-0.4) X10*3/uL Baso # (Auto) 0.0 (0.0-0.2) X10*3/uL Abs Immat Gran (auto) 0.04 H (0.00-0.03) X10*3/uL Absolute Neuts (auto) 5.1 (2.0-8.3) x10*3/uL Absolute Nucleated RBC 0.000 (0.0-0.012) X10*3/uL Nucleated RBC % (auto) 0.0 (0.0-0.2) /100WBC Hold Purple Top SEE NOTE PT 14.1 H (10.9-12.4) SEC INR 1.2 H (0.9-1.1) Sodium 137 (135-145) mmol/L Potassium 4.1 (3.3-5.1) mmol/L Chloride 102 (96-108) mmol/L Carbon Dioxide 25 (22-29) mmol/L Anion Gap 14 (12-20) BUN 17 H (9-16) mg/dL Creatinine 1.09 (0.5-1.4) mg/dL Estim Creat Clear Calc 66.8 Estimated GFR > 60 POC Glucose (60-115) mg/dL Random Glucose 155 H (60-115) mg/dL Lactic Acid 1.9 (0.5-2.0) mmol/L Calcium 9.2 D (8.4-10.2) mg/dL Magnesium 2.0 (1.6-2.6) mg/dL Total Bilirubin 1.5 H (0.0-1.0) mg/dL Direct Bilirubin 0.5 (0.0-0.5) mg/dL AST 30 (5-37) U/L ALT 20 (0-40) U/L Alkaline Phosphatase 68 (39-117) U/L Troponin I High Sens 2.7 (<3.5-35.0) ng/L Total Protein 7.8 (6.5-8.0) g/dL Albumin 3.8 (3.5-5.0) g/dL Lipase 18 (8-78) U/L Hold Green Top See Note Urine Color Dark Yellow Urine Appearance Cloudy Urine pH 6.0 (5.0-9.0) Ur Specific [place] 1.025 (1.005-1.025) Urine Protein 30 (1+) H (Neg-Trace) mg/dL Urine Glucose (UA) Negative (Negative) mg/dL Urine Ketones 15 (Negative) mg/dL Urine Blood Negative (Negative) Urine Nitrite Negative (Negative) Ur Leukocyte Esterase Moderate (2+) H (Negative) Urine RBC 3-5 H (0-2) /HPF Urine WBC 21-50 H (0-5) /HPF Ur Squamous Epith Cells 0-2 (0-2) /HPF Urine Bacteria 4+ (None Seen) Hyaline Casts 0-2 (0-2) /LPF Influenza Type A (PCR) NEGATIVE (Negative) Influenza Type B (PCR) NEGATIVE (Negative) RSV RNA Qual (PCR) NEGATIVE (Negative) SARS-CoV-2 RNA (RT-PCR) POSITIVE A (Negative) 04/22/24 Range/Units 19:48 WBC (4.8-10.8) X10*3/uL RBC (4.60-5.80) X10*6/uL Hgb (14.0-18.0) g/dl Hct (42.0-52.0) % MCV (80.0-98.0) fL MCH (27.0-33.0) pg MCHC (31.0-36.0) g/dl RDW (11.0-16.0) % Plt Count (160-400) X10*3/uL MPV (9.4-12.4) fL Immature Gran % (Auto) (0.0-0.4) % Neut % (Auto) (45-73) % Lymph % (Auto) (20-40) % [place] % (Auto) (2-11) % Eos % (Auto) (0-4) % Baso % (Auto) (0-2) % Lymph # (Auto) (1.2-4.9) X10*3/uL [place] # (Auto) (0.1-1.2) X10*3/uL Eos # (Auto) (0.0-0.4) X10*3/uL Baso # (Auto) (0.0-0.2) X10*3/uL Abs Immat Gran (auto) (0.00-0.03) X10*3/uL Absolute Neuts (auto) (2.0-8.3) x10*3/uL Absolute Nucleated RBC (0.0-0.012) X10*3/uL Nucleated RBC % (auto) (0.0-0.2) /100WBC Hold Purple Top PT (10.9-12.4) SEC INR (0.9-1.1) Sodium (135-145) mmol/L Potassium (3.3-5.1) mmol/L Chloride (96-108) mmol/L Carbon Dioxide (22-29) mmol/L Anion Gap (12-20) BUN (9-16) mg/dL Creatinine (0.5-1.4) mg/dL Estim Creat Clear Calc Estimated GFR POC Glucose 120 H (60-115) mg/dL Random Glucose (60-115) mg/dL Lactic Acid (0.5-2.0) mmol/L Calcium (8.4-10.2) mg/dL Magnesium (1.6-2.6) mg/dL Total Bilirubin (0.0-1.0) mg/dL Direct Bilirubin (0.0-0.5) mg/dL AST (5-37) U/L ALT (0-40) U/L Alkaline Phosphatase (39-117) U/L Troponin I High Sens (<3.5-35.0) ng/L Total Protein (6.5-8.0) g/dL Albumin (3.5-5.0) g/dL Lipase (8-78) U/L Hold Green Top Urine Color Urine Appearance Urine pH (5.0-9.0) Ur Specific [place] (1.005-1.025) Urine Protein (Neg-Trace) mg/dL Urine Glucose (UA) (Negative) mg/dL Urine Ketones (Negative) mg/dL Urine Blood (Negative) Urine Nitrite (Negative) Ur Leukocyte Esterase (Negative) Urine RBC (0-2) /HPF Urine WBC (0-5) /HPF Ur Squamous Epith Cells (0-2) /HPF Urine Bacteria (None Seen) Hyaline Casts (0-2) /LPF Influenza Type A (PCR) (Negative) Influenza Type B (PCR) (Negative) RSV RNA Qual (PCR) (Negative) SARS-CoV-2 RNA (RT-PCR) (Negative) Critical Care Time Critical Care Time Critical Care Time: Yes Total Critical Care Time: 45 Attestation: The patient was critically ill with a high probability of imminent or life- threatening deterioration. I spent greater than 30 minutes of discontinuous time evaluating the patient, delivering critical care at the bedside, discussing evaluating data with consultants. Critical care time does not include time spent performing separately billable procedures or teaching. Time spent performing critical care with 45 minutes. Discharge Plan Discharge Clinical Impression: Sepsis, Aspiration pneumonia, COVID-19 Patient Disposition: Admitted As Inpatient
[2024-04-22] MEDS: Ampicillin Sodium/Sulbactam Na 3 GM in 0.9 % Sodium Chloride 100 ML IV (23:19)
--- NOTE | 2024-04-22 23:19 | PC.NURSE ---
aware of pt temperature, pt medicated per sep.
[2024-04-22] MEDS: Acetaminophen 1,000 MG/100 ML PIGGYBACK 400 MG IV (23:20)
[2024-04-22] MEDS: Enoxaparin Sodium 40 MG/0.4 ML SYRINGE SUBCUT (23:20)
[2024-04-23] VITALS (20 sets, daily range): BP systolic 90–157; BP diastolic 48–89; PULSE 66–92; RESP 16–24; TEMP 35.6–37.9; O2SAT 96–100
--- NOTE | 2024-04-23 02:27 | PC.NURSE ---
at this time, pt noted to have hypotension, pt not responding to painful stimuli initially, after sternal rubs, pt able to display pain reaction. pt pupils noted to be pinpoint, called to bedside. pt medicated per sep.
[2024-04-23] MEDS: Albumin Human 25 % 100 ML 133.33 ML IV ×2 (02:28→03:17)
[2024-04-23 02:32] LABS: Venous Blood Gas Refer to POC result
[2024-04-23 02:33] LABS: VBG Base Excess -2.6 mmol/L; VBG HCO3 20 mmol/L (22-26); VBG pCO2 29 mmHg; VBG pH 7.45 (7.32-7.43); VBG pO2 71 mmHg
[2024-04-23 02:39] LABS: Glucose, Whole Blood 116 mg/dL (60-115)
--- NOTE | 2024-04-23 03:23 | PC.NURSE ---
Addendum entered by Annamaria Heredia 04/23/24 03:33: temp sensing varela remains in place w/ dark colored urine output at approx 300mL output Original Note: patient remains asleep at this time with even and unlabored respirations. second bag of albumin infusing at this time. remains hypotensive 90-100's systolic. afebrile at this time.
[2024-04-23] MEDS: Ampicillin Sodium/Sulbactam Na 3 GM in 0.9 % Sodium Chloride 100 ML IV ×4 (04:32→23:25)
--- NOTE | 2024-04-23 05:19 | PC.NURSE ---
bp remains hypotensive, core temperatures trending down at this point. provider made aware.
[2024-04-23 05:47] LABS: Hematocrit 24.5 % (42.0-52.0); Hemoglobin 8.4 g/dl (14.0-18.0); Mean Corpuscular HGB Conc 34.3 g/dl (31.0-36.0); Mean Corpuscular Hemoglobin 33.2 pg (27.0-33.0); Mean Corpuscular Volume 96.8 fL (80.0-98.0); Mean Platelet Volume 9.1 fL (9.4-12.4); Red Blood Count 2.53 X10*6/uL (4.60-5.80); Red Cell Distribution Width 13.2 % (11.0-16.0); White Blood Count 4.4 X10*3/uL (4.8-10.8)
[2024-04-23 05:56] LABS: Platelet Count 80 X10*3/uL (160-400)
[2024-04-23 06:10] LABS: Anion Gap 11 (12-20); Blood Urea Nitrogen 12 mg/dL (9-16); Calcium 7.3 mg/dL (8.4-10.2); Carbon Dioxide 22 mmol/L (22-29); Chloride 112 mmol/L (96-108); Creatinine Clr Calc Pharmacy 97.1; Estimated Glomerular Filt Rate > 60; Glucose Random 108 mg/dL (60-115); Potassium 3.7 mmol/L (3.3-5.1); Sodium 141 mmol/L (135-145)
--- NOTE | 2024-04-23 06:16 | PC.NURSE ---
order via [facility] for LR infusion. infusing at 100mls/hr
--- NOTE | 2024-04-23 07:18 | P.PNIM_ITS ---
Subjective Subjective Date of Service: 04/23/24 Interval History: f/u on encephalopathy d/t uti, pna and sepsis he is confused and not able to communicate Physical Exam 2 Vital Signs: Vital Signs: Last Vital Signs Temp 96.1 F L 04/23/24 06:31 Pulse 71 04/23/24 06:31 Resp 20 04/23/24 06:31 BP 104/56 L 04/23/24 06:31 Pulse Ox 98 04/23/24 06:31 O2 Del Method Room Air 04/23/24 06:31 O2 Flow Rate 2 04/22/24 20:23 BMI result Body Mass Index 21.5 General: Alert but not talking Resp: CTA bilateral CVS: S1,S2,RRR GI: +BS, NT, no distention Skin: No rash Neuro: motor grossly intact Psych: appropriate affect Objective Data Active Medications Acetaminophen (Acetaminophen 325 Mg Tablet) 650 mg PO Q6H PRN PRN Reason: Pain, Mild (Pain Scale 1-3), fever or headache Calcium Carbonate (Calcium Carbonate 750 Mg Tab.Chew) 750 mg PO Q4H PRN PRN Reason: Heartburn Enoxaparin Sodium (Enoxaparin Sodium 40 Mg/0.4 Ml Syringe) 40 mg SUBCUT Q24H COUNTS INCLUDE 234 BEDS AT THE [facility] Last Admin: 04/22/24 23:20 Dose: 40 mg Documented By: JUNG Ampicillin Sodium/Sulbactam (Sodium 3 gm/ Sodium Chloride) 100 mls @ 200 mls/hr IV Q6H COUNTS INCLUDE 234 BEDS AT THE [facility] Last Infusion: 04/23/24 05:14 Dose: Infused Documented By: NORTH Magnesium Hydroxide (Milk Of Magnesia 30 Ml Oral.Susp) 30 ml PO DAILY PRN PRN Reason: Constipation Melatonin (Melatonin 3 Mg Tablet) 6 mg PO BEDTIME PRN PRN Reason: Insomnia Ondansetron HCl (Ondansetron Hcl 4 Mg/2 Ml Vial) 4 mg IVPUSH Q8H PRN PRN Reason: Nausea and Vomiting Sodium Chloride (0.9 % Sodium Chloride Flush 3 Ml Syringe) 3 ml IVFLUSH QSHIFT COUNTS INCLUDE 234 BEDS AT THE [facility] Last Admin: 04/23/24 00:08 Dose: Not Given Documented By: JUNG Non-Admin Reason: IV Running Labs 04/23/24 05:08 04/23/24 08:25 Labs: Laboratory Results - last 24 hr 09/04/22/24 04/22/24 19:06 19:09 19:31 MCV 94.2 MCH 33.3 H MCHC 35.4 RDW 12.8 Plt Count 152 L MPV 9.5 Immature Gran % (Auto) 0.6 H Neut % (Auto) 76.8 H Lymph % (Auto) 16.5 L Quay % (Auto) 6.0 Eos % (Auto) 0.0 Baso % (Auto) 0.1 Lymph # (Auto) 1.1 L Quay # (Auto) 0.4 Eos # (Auto) 0.0 Baso # (Auto) 0.0 Abs Immat Gran (auto) 0.04 H Absolute Neuts (auto) 5.1 Absolute Nucleated RBC 0.000 Nucleated RBC % (auto) 0.0 Hold Purple Top SEE NOTE PT 14.1 H INR 1.2 H VBG pH VBG pCO2 VBG pO2 VBG HCO3 VBG O2 Saturation VBG Base Excess Anion Gap 14 Estim Creat Clear Calc 66.8 Estimated GFR > 60 POC Glucose Random Glucose 155 H Lactic Acid 1.9 Calcium 9.2 D Magnesium 2.0 Total Bilirubin 1.5 H Direct Bilirubin 0.5 AST 30 ALT 20 Alkaline Phosphatase 68 Troponin I High Sens 2.7 Total Protein 7.8 Albumin 3.8 Lipase 18 Hold Green Top See Note Urine Color Dark Yellow Urine Appearance Cloudy Urine pH 6.0 Ur Specific Hyrum 1.025 Urine Protein 30 (1+) H Urine Glucose (UA) Negative Urine Ketones 15 Urine Blood Negative Urine Nitrite Negative Ur Leukocyte Esterase Moderate (2+) H Urine RBC 3-5 H Urine WBC 21-50 H Ur Squamous Epith Cells 0-2 Urine Bacteria 4+ Hyaline Casts 0-2 Influenza Type A (PCR) NEGATIVE Influenza Type B (PCR) NEGATIVE RSV RNA Qual (PCR) NEGATIVE SARS-CoV-2 RNA (RT-PCR) POSITIVE A 04/22/24 04/23/24 04/23/24 19:48 02:29 02:35 MCV MCH MCHC RDW Plt Count MPV Immature Gran % (Auto) Neut % (Auto) Lymph % (Auto) Quay % (Auto) Eos % (Auto) Baso % (Auto) Lymph # (Auto) Quay # (Auto) Eos # (Auto) Baso # (Auto) Abs Immat Gran (auto) Absolute Neuts (auto) Absolute Nucleated RBC Nucleated RBC % (auto) Hold Purple Top PT INR VBG pH 7.45 H VBG pCO2 29 VBG pO2 71 VBG HCO3 20 L VBG O2 Saturation 97.0 VBG Base Excess -2.6 Anion Gap Estim Creat Clear Calc Estimated GFR POC Glucose 120 H 116 H Random Glucose Lactic Acid Calcium Magnesium Total Bilirubin Direct Bilirubin AST ALT Alkaline Phosphatase Troponin I High Sens Total Protein Albumin Lipase Hold Green Top Urine Color Urine Appearance Urine pH Ur Specific Hyrum Urine Protein Urine Glucose (UA) Urine Ketones Urine Blood Urine Nitrite Ur Leukocyte Esterase Urine RBC Urine WBC Ur Squamous Epith Cells Urine Bacteria Hyaline Casts Influenza Type A (PCR) Influenza Type B (PCR) RSV RNA Qual (PCR) SARS-CoV-2 RNA (RT-PCR) 04/23/24 05:08 MCV 96.8 MCH 33.2 H MCHC 34.3 RDW 13.2 Plt Count 80 L D MPV 9.1 L Immature Gran % (Auto) Neut % (Auto) Lymph % (Auto) Quay % (Auto) Eos % (Auto) Baso % (Auto) Lymph # (Auto) Quay # (Auto) Eos # (Auto) Baso # (Auto) Abs Immat Gran (auto) Absolute Neuts (auto) Absolute Nucleated RBC 0.000 Nucleated RBC % (auto) 0.0 Hold Purple Top PT INR VBG pH VBG pCO2 VBG pO2 VBG HCO3 VBG O2 Saturation VBG Base Excess Anion Gap 11 L Estim Creat Clear Calc 97.1 Estimated GFR > 60 POC Glucose Random Glucose 108 Lactic Acid Calcium 7.3 L D Magnesium Total Bilirubin Direct Bilirubin AST ALT Alkaline Phosphatase Troponin I High Sens Total Protein Albumin Lipase Hold Green Top Urine Color Urine Appearance Urine pH Ur Specific Hyrum Urine Protein Urine Glucose (UA) Urine Ketones Urine Blood Urine Nitrite Ur Leukocyte Esterase Urine RBC Urine WBC Ur Squamous Epith Cells Urine Bacteria Hyaline Casts Influenza Type A (PCR) Influenza Type B (PCR) RSV RNA Qual (PCR) SARS-CoV-2 RNA (RT-PCR) Assessment and Plan (1) COVID-19: Status: Acute (2) Aspiration pneumonia: Status: Acute (3) Sepsis: Status: Acute (4) Metabolic encephalopathy: Status: Acute Plan 69/m with htn, \ mood disorder, vascular dementia with behavioral disturbance, seizure disorder, mixed hyperlipidemia who was sent to the emergency department for evaluation of fevers and altered mentation. Sepsis d/t aspiration PNA and UTI--sepsis resolved -continue Unasyn started 04/22 - follow cultures Mtabolic encephalopathy d/t above -treat underlying issues as above COVID-19 infection with superimpose bacterial PNA, no hypoxia -conservative management Mood disorder/vascular dementia with behavioral disturbance -resume home meds once med rec completed. seizure d/o--resume meds after med rec Anemia--looks like lab error! Med rec pending FEN: NPO, will need swallow eval, LR at 125/hr DVT prophylaxis with Lovenox Full code need for inpt: IV Abx for sesis, pna and uti Quality Stroke Does the patient have a stroke diagnosis?: No VTE Prior VTE?: No VTE Risk Level:: Medical - moderate - high VTE Device Contraindication: Treatment Not Indicated VTE Drug Contraindication: N/A - Med Ordered
[2024-04-23 08:44] LABS: Anion Gap 12 (12-20); Blood Urea Nitrogen 12 mg/dL (9-16); Calcium 7.5 mg/dL (8.4-10.2); Carbon Dioxide 21 mmol/L (22-29); Chloride 114 mmol/L (96-108); Creatinine Clr Calc Pharmacy 101.1; Estimated Glomerular Filt Rate > 60; Glucose Random 92 mg/dL (60-115); Potassium 3.9 mmol/L (3.3-5.1); Sodium 143 mmol/L (135-145)
[2024-04-23 09:05] LABS: Hematocrit 29.6 % (42.0-52.0); Hemoglobin 10.1 g/dl (14.0-18.0); Mean Corpuscular HGB Conc 34.1 g/dl (31.0-36.0); Mean Corpuscular Hemoglobin 33.2 pg (27.0-33.0); Mean Corpuscular Volume 97.4 fL (80.0-98.0); Mean Platelet Volume 9.4 fL (9.4-12.4); Red Blood Count 3.04 X10*6/uL (4.60-5.80); Red Cell Distribution Width 13.3 % (11.0-16.0); White Blood Count 5.6 X10*3/uL (4.8-10.8)
[2024-04-23 09:07] LABS: Platelet Count 83 X10*3/uL (160-400)
[2024-04-23] MEDS: Lactated Ringers 1,000 ML 125 ML IVCONT ×2 (09:35→16:00)
--- NOTE | 2024-04-23 10:09 | PHA.MEDREC ---
Pharmacy Consult ? Medication Reconciliation Pharmacy has completed the medication reconciliation. PAtient with list from [facility]; called them to confirm last dose of clozaril which was 04/22/24 @1700
--- NOTE | 2024-04-23 11:10 | PC.NURSE ---
patient blood pressure has improved w/ LR infusing at this time. temperature also improving. patient remains asleep at this time with even and unlabored respirations. moved self independently onto side in bed.
--- NOTE | 2024-04-23 11:28 | PC.NURSE ---
patient awake, asking where he is at this time. responding to questions
[2024-04-23] MEDS: OLANZapine 10 MG VIAL 5 MG IM (17:55)
--- NOTE | 2024-04-23 18:00 | PC.NURSE ---
patient had remained asleep but arousable to verbal stimuli for the day - promptly falling back to sleep. at approx 1745, patient was found pulling at all devices, yelling in room. unable to redirect patient or have patient speak with staff. patient remained yelling incoherently and continued to try to remove catheter, IV, and port access. provider was made aware and patient was placed in soft restraints for patient and staff safety w/ order from provider for 5mg zyprexa IM d/t being unable to redirect patient for PO medication attempt. patient medicated per the MAR, remains in soft restraints at this time.
--- NOTE | 2024-04-23 18:42 | PC.NURSE ---
see paper documentation referring to restraints
--- NOTE | 2024-04-23 20:00 | PC.NURSE ---
pt agitated and confused with arousal to verbal stimuli, soft bilateral wrist restraints in place per provider order prior to shift change. pt repositioned, became agitated and yelling out, attempting to pull at lines and tele monitor cords. continued to reposition pt with pillows and blankets, explained need for continued restraints, pt continues yelling at staff while in room.
--- NOTE | 2024-04-23 23:01 | PC.NURSE ---
handoff given to nikko watts
[2024-04-23] MEDS: Enoxaparin Sodium 40 MG/0.4 ML SYRINGE SUBCUT (23:24)
--- NOTE | 2024-04-23 23:27 | PC.NURSE ---
this rn assumed care of pt, pt noted to have bilateral wrist velcro restraints on at this time. pt appears to be attempting to pull o restraints, provider aware, order continues for restraints. pt medicated per sep. vss.
[2024-04-24] VITALS (12 sets, daily range): BP systolic 124–178; BP diastolic 44–79; PULSE 87–104; RESP 14–30; TEMP 37.1–37.7; O2SAT 96–100
--- NOTE | 2024-04-24 00:13 | PC.NURSE ---
attempted to remove velcro restraints, pt began to scratch abdomen and attempt to pull out port access. pt placed back into soft velcro restraints. aware for continuation. pt placed into hospital bed for comfort.
[2024-04-24] MEDS: Lactated Ringers 1,000 ML 125 ML IVCONT ×3 (01:19→17:50)
--- NOTE | 2024-04-24 02:06 | PC.NURSE ---
this rn assessed pt at this time, pt noted to be calm and asleep. respirations even and unlabored. pt velcro restraints removed bilaterally at this time, pt continues to be calm. provider aware.
--- NOTE | 2024-04-24 04:38 | PC.NURSE ---
at 0418, pt woken up for morning labs. pt became combative, removed leads, blood pressure cuff and removed accessed port. pt placed back into bilateral velcro wrist restraints, pt re-accessed at this time. dr. kelly white. pt vss.
[2024-04-24 05:25] LABS: Mean Platelet Volume 9.9 fL (9.4-12.4); PLT CLUMP 1
[2024-04-24 05:27] LABS: Hematocrit 32.1 % (42.0-52.0); Hemoglobin 10.8 g/dl (14.0-18.0); Mean Corpuscular HGB Conc 33.6 g/dl (31.0-36.0); Mean Corpuscular Hemoglobin 32.5 pg (27.0-33.0); Mean Corpuscular Volume 96.7 fL (80.0-98.0); Red Blood Count 3.32 X10*6/uL (4.60-5.80)
[2024-04-24 05:31] LABS: Platelet Count 105 X10*3/uL (160-400); White Blood Count 5.3 X10*3/uL (4.8-10.8)
[2024-04-24 05:51] LABS: Anion Gap 17 (12-20); Blood Urea Nitrogen 9 mg/dL (9-16); Calcium 8.1 mg/dL (8.4-10.2); Carbon Dioxide 20 mmol/L (22-29); Chloride 110 mmol/L (96-108); Estimated Glomerular Filt Rate > 60; Glucose Random 81 mg/dL (60-115); Magnesium 1.9 mg/dL (1.6-2.6); Potassium 3.7 mmol/L (3.3-5.1); Sodium 143 mmol/L (135-145)
[2024-04-24] MEDS: Ampicillin Sodium/Sulbactam Na 3 GM in 0.9 % Sodium Chloride 100 ML IV ×3 (05:55→17:21)
--- NOTE | 2024-04-24 06:23 | PC.NURSE ---
at this time, pt assessed, pt is confused and agitated when woken up, plan to continue bilateral soft velcro restraints for pt safety. Dr.Vali white.
--- NOTE | 2024-04-24 08:53 | HO.PM.IMPN ---
Subjective Subjective Date of Service: 04/24/24 Interval History: While mostly somnolent yesterday, he became increasing agitated and combative, removing lines, and tubes and had to be restrained with soft restrain and Zyprexa. He is not directable at this point and has not been able to take his oral medications. Physical Exam Vital Signs: Vital Signs: Last Vital Signs Temp 98.8 F 04/24/24 07:56 Pulse 104 H 04/24/24 07:56 Resp 22 H 04/24/24 07:56 BP 164/70 H 04/24/24 07:56 Pulse Ox 99 04/24/24 07:56 O2 Del Method Room Air 04/24/24 07:56 O2 Flow Rate 2 04/22/24 20:23 BMI result Body Mass Index 21.5 General: Alert but not talking Resp: CTA bilateral CVS: S1,S2,RRR GI: +BS, NT, no distention Skin: No rash Neuro: motor grossly intact Psych: appropriate affect Const: Other: General: Delirius, screaming Resp: CTA bilateral CVS: S1,S2,RRR GI: +BS, NT, no distention Skin: No rash Neuro: motor grossly intact Psych: appropriate affect Objective Data Active Medications Acetaminophen (Acetaminophen 325 Mg Tablet) 650 mg PO Q6H PRN PRN Reason: Pain, Mild (Pain Scale 1-3), fever or headache Acetaminophen (Acetaminophen 325 Mg Tablet) 650 mg PO Q6H PRN PRN Reason: discomfort/temperature above 101 Acetaminophen (Acetaminophen Supp 650 Mg Supp.Rect) 650 mg NE Q6H PRN PRN Reason: discomfort/temperature above 101 Atorvastatin Calcium (Atorvastatin Calcium 10 Mg Tablet) 10 mg PO DAILY [facility] Calcium Carbonate (Calcium Carbonate 750 Mg Tab.Chew) 750 mg PO Q4H PRN PRN Reason: Heartburn Clozapine (Clozapine 25 Mg Tablet) 50 mg PO DAILY@1700 [facility] Last Admin: 04/23/24 18:10 Dose: Not Given Documented By: NORTH Non-Admin Reason: Patient Condition Contraindication Clozapine (Clozapine 100 Mg Tablet) 200 mg PO DAILY@1700 [facility] Last Admin: 04/23/24 18:09 Dose: Not Given Documented By: NORTH Non-Admin Reason: See Note Divalproex Sodium (Divalproex Sodium Er 500 Mg Tab.Er.24h) 500 mg PO BID [facility] Last Admin: 04/23/24 22:46 Dose: Not Given Documented By: DEUCE Non-Admin Reason: Patient Condition Contraindication Comments: pt somnolent Docusate Sodium (Docusate Sodium 100 Mg Capsule) 100 mg PO BID [facility] Last Admin: 04/23/24 22:47 Dose: Not Given Documented By: DEUCE Non-Admin Reason: Patient Condition Contraindication Comments: pt somnolent Enoxaparin Sodium (Enoxaparin Sodium 40 Mg/0.4 Ml Syringe) 40 mg SUBCUT Q24H [facility] Last Admin: 04/23/24 23:24 Dose: 40 mg Documented By: JUNG Fluoxetine HCl (Fluoxetine Hcl 20 Mg Capsule) 40 mg PO DAILY [facility] Gabapentin (Gabapentin 400 Mg Capsule) 400 mg PO TID [facility] Last Admin: 04/23/24 22:47 Dose: Not Given Documented By: DEUCE Non-Admin Reason: Patient Condition Contraindication Comments: pt somnolent Glycopyrrolate (Glycopyrrolate 1 Mg Tablet) 2 mg PO BID [facility] Last Admin: 04/23/24 22:47 Dose: Not Given Documented By: DEUCE Non-Admin Reason: Patient Condition Contraindication Comments: pt somnolent Ampicillin Sodium/Sulbactam (Sodium 3 gm/ Sodium Chloride) 100 mls @ 200 mls/hr IV Q6H [facility] Last Infusion: 04/24/24 06:24 Dose: Infused Documented By: JUNG Lactated Ringer's (Lr) 1,000 mls @ 125 mls/hr IVCONT .Q8H [facility] Last Admin: 04/24/24 01:19 Dose: 125 mls/hr Documented By: JUNG Lorazepam (Lorazepam 0.5 Mg Tablet) 0.5 mg PO DAILY [facility] Lorazepam (Lorazepam 1 Mg Tablet) 1 mg PO DAILY [facility] Lorazepam (Lorazepam 1 Mg Tablet) 2 mg PO Q14D PRN PRN Reason: Anxiety Magnesium Hydroxide (Milk Of Magnesia 30 Ml Oral.Susp) 30 ml PO DAILY PRN PRN Reason: Constipation Magnesium Hydroxide (Milk Of Magnesia 30 Ml Oral.Susp) 30 ml PO DAILY PRN PRN Reason: Constipation Melatonin (Melatonin 3 Mg Tablet) 6 mg PO BEDTIME PRN PRN Reason: Insomnia Naloxone HCl (Naloxone Hcl Nasal 4 Mg [place]) 4 mg NOSTRILALT Q3M PRN PRN Reason: Opioid Overdose Ondansetron HCl (Ondansetron Hcl 4 Mg/2 Ml Vial) 4 mg IVPUSH Q8H PRN PRN Reason: Nausea and Vomiting Polyethylene Glycol (Polyethylene Glycol 3350 17 Gm Powd.Pack) 17 gm PO DAILY [facility] Sodium Biphosphate/Sodium Phosphate (Sodium Phosphate,Blaine-Dibasic 133 Ml Enema) 118 ml NE DAILY PRN PRN Reason: Constipation Sodium Chloride (0.9 % Sodium Chloride Flush 3 Ml Syringe) 3 ml IVFLUSH QSHIFT [facility] Last Admin: 04/24/24 00:32 Dose: Not Given Documented By: JUNG Non-Admin Reason: IV Running Labs 04/24/24 04:33 04/24/24 04:33 Labs: Laboratory Results - last 24 hr 04/23/24 04/24/24 08:54 04:33 MCV 97.4 96.7 MCH 33.2 H 32.5 MCHC 34.1 33.6 RDW 13.3 13.0 Plt Count 83 L 105 L D MPV 9.4 9.9 Absolute Nucleated RBC 0.000 0.000 Nucleated RBC % (auto) 0.0 0.0 Anion Gap 17 Estim Creat Clear Calc 104.0 Estimated GFR > 60 Random Glucose 81 Calcium 8.1 L D Magnesium 1.9 Microbiology Microbiology Results: Microbiology 04/22/24 19:31 Urine Culture - Final Urine clean catch - Clean Catch Midstream 04/22/24 20:09 Blood Culture - Preliminary Blood - Venous No growth after 24 hours. 04/22/24 19:06 Blood Culture - Preliminary Blood - Venous No growth after 24 hours. Assessment and Plan (1) COVID-19: Status: Acute (2) Aspiration pneumonia: Status: Acute (3) Sepsis: Status: Acute (4) Metabolic encephalopathy: Status: Acute Plan 69/m with htn, \ mood disorder, vascular dementia with behavioral disturbance, seizure disorder, mixed hyperlipidemia who was sent to the emergency department for evaluation of fevers and altered mentation. Sepsis d/t aspiration PNA and UTI--sepsis resolved -continue Unasyn started 04/22 - cultures so far negative. -COMPANION eval Metabolic encephalopathy d/t above -treat underlying issues as above Psychosis w/ underlying dementia -Psych to help with med management Mood disorder/vascular dementia with behavioral disturbance -on Olanzapine, depakote, ativan, fluoxetine but not taking PO -Psych consult as above COVID-19 infection with superimpose bacterial PNA, no hypoxia -conservative management seizure d/o--depakote Anemia--acute drop yesterday probably dilurtional, H/H is stable Thrombocytopenia--better, Monitor FEN: NPO, will need swallow eval, LR at 125/hr DVT prophylaxis with Lovenox Full code need for inpt: IV Abx for sesis, pna and uti Quality Stroke Does the patient have a stroke diagnosis?: No VTE Prior VTE?: No VTE Risk Level:: Medical - moderate - high VTE Device Contraindication: Treatment Not Indicated VTE Drug Contraindication: N/A - Med Ordered
--- NOTE | 2024-04-24 09:05 | PC.NURSE ---
Addendum entered by Elis Blanco RN 04/24/24 09:30: 900 ml clear yellow urine drained from varela bag by this RN, LR running at 125ml/hr Original Note: patient is resting in hospital bed, occasionally yells out, patient in soft restraints due to pulling on medical devices / IV lines. patient port flushes well, patient is not oriented. patient wakes to verbal stimuli, pupils equal and reactive. varela in place, patient noted to be laying on wet leandro pads, patient cleaned up, repositioned and new linens/pads given. varela draining yellow urine. patient unable to participate in swallow eval due to mental state. VSS at this time, respirations equal and unlabored, skin noted to be dry and intact
--- NOTE | 2024-04-24 10:39 | MHC.SLORD ---
Speech Language Pathology Order Status: ST attempted to evaluate pt twice today, pt with significant AMS, unable to follow simple cues by RN. ST to return when appropriate, RN and MD notified
--- NOTE | 2024-04-24 12:57 | PC.NURSE ---
patient increasingly agitated, patient scratching at sides with finger nails patient noted to have scratch staples above each thigh where hands rest in restraints bleeding controlled. inpatient provider notified, patient changed due to leaking urine around varela cath, bedding and linens changed. patient then ripped out varela cath with balloon intact, no bleeding noted. new varela cath palced with minimal urine output, no bleeding noted. patient medicated per SEP with IM Zyprexa. VSS. placed socks on patients hands for safety due to patient causing himself to bleed with excessive scratching. ED Management aware, charge nurse aware, inpatient provider aware
[2024-04-24] MEDS: OLANZapine 10 MG VIAL 5 MG IM (13:00)
[2024-04-24] MEDS: Valproic Acid (as Sodium Salt) 500 MG in Dextrose 5 % 50 ML 55 MG IV ×2 (13:25→22:03)
[2024-04-24] MEDS: LORazepam 2 MG/ML VIAL 1 MG IVPUSH (13:26)
[2024-04-24 13:31] LABS: Ammonia 36 umol/L (13-55)
--- NOTE | 2024-04-24 13:52 | MHC.CM.PN ---
IMM 04/24/24, reviewed with guardian, Thor Soria on the phone, pt resides LTC at [facility]. Goal of care if for him to return there via BLS. CM to follow and assist with DC plan.
--- NOTE | 2024-04-24 17:52 | PC.NURSE ---
patient remains in soft restraints due to agitation, confusion and pulling out medical devices. Inpatient attending at beside
--- NOTE | 2024-04-24 18:45 | PC.NURSE ---
875 ml urine output from varela bag
[2024-04-24] MEDS: 0.9 % Sodium Chloride Flush 3 ML SYRINGE IVFLUSH (22:04)
[2024-04-24] MEDS: Gabapentin 400 MG CAPSULE PO (22:11)
[2024-04-24] MEDS: Docusate Sodium 100 MG CAPSULE PO (22:11)
[2024-04-24] MEDS: Glycopyrrolate 1 MG TABLET 2 MG PO (22:11)
[2024-04-25] VITALS (7 sets, daily range): BP systolic 119–159; BP diastolic 57–75; PULSE 72–93; RESP 16–22; TEMP 35.7–36.4; O2SAT 95–99
[2024-04-25] MEDS: Ampicillin Sodium/Sulbactam Na 3 GM in 0.9 % Sodium Chloride 100 ML IV ×5 (00:07→23:03)
[2024-04-25] MEDS: Enoxaparin Sodium 40 MG/0.4 ML SYRINGE SUBCUT ×2 (00:08→23:04)
[2024-04-25] MEDS: Lactated Ringers 1,000 ML 125 ML IVCONT (04:30)
[2024-04-25 07:20] LABS: Hematocrit 31.2 % (42.0-52.0); Hemoglobin 10.8 g/dl (14.0-18.0); Mean Corpuscular HGB Conc 34.6 g/dl (31.0-36.0); Mean Corpuscular Hemoglobin 32.8 pg (27.0-33.0); Mean Corpuscular Volume 94.8 fL (80.0-98.0); Mean Platelet Volume 9.5 fL (9.4-12.4); Platelet Count 105 X10*3/uL (160-400); Red Blood Count 3.29 X10*6/uL (4.60-5.80); Red Cell Distribution Width 13.2 % (11.0-16.0); White Blood Count 4.7 X10*3/uL (4.8-10.8)
[2024-04-25 07:46] LABS: Anion Gap 15 (12-20); Blood Urea Nitrogen 11 mg/dL (9-16); Calcium 8.5 mg/dL (8.4-10.2); Carbon Dioxide 25 mmol/L (22-29); Chloride 107 mmol/L (96-108); Creatinine Clr Calc Pharmacy 108.7; Estimated Glomerular Filt Rate > 60; Glucose Random 81 mg/dL (60-115); Magnesium 1.9 mg/dL (1.6-2.6); Potassium 3.5 mmol/L (3.3-5.1); Sodium 143 mmol/L (135-145)
[2024-04-25] MEDS: 0.9 % Sodium Chloride Flush 3 ML SYRINGE IVFLUSH ×3 (08:53→23:51)
[2024-04-25] MEDS: LORazepam 2 MG/ML VIAL 1 MG IVPUSH (08:58)
[2024-04-25] MEDS: Valproic Acid (as Sodium Salt) 500 MG in Dextrose 5 % 50 ML 100 MG IV (09:15)
--- NOTE | 2024-04-25 12:35 | P.CNPS_ITS ---
History of Present Illness Date of Service: 04/25/24 Chief Complaint: fever,weakness,ams, ?sepsis, covid shot yesterday Reason for Consult: ams medication management Requesting physician: Randy Garcia Discussed with referring provider: Yes Sources of Information: patient interviewed and chart reviewed Additional Sources of Information: Sully Mclean NP HPI Narrative: The patient is a 69-year-old male resident of [facility] admitted with sepsis COVID-19 and confusional agitated state. Patient appears to be coming down he was initially not able to take in p.o. 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 Patient has been on 250 mg of clozapine at 17:00 daily Depakote 500 b.i.d. Past Psychiatric History: See patient is originally from [place] he was at a long-term care facility in [place] had then been hospitalized at a psychiatric hospital for number of months was unable to be stabilized M was referred to the [facility] for longer term care. 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 He states his father was doctor his mother a a psychiatrist in his brother who is guardian is also his physician patient also has a sister. He has not worked for many years Trauma History: Patient denies Diagnostics Vital Signs (24Hr): Vital Signs - 24 hr 04/24/24 12:57 04/24/24 14:21 04/24/24 14:47 Temperature 99.3 F 99.3 F Pulse Rate 101 H 88 89 Respiratory Rate 30 H 20 20 Blood Pressure 124/64 127/65 139/65 Pulse Oximetry 100 97 98 Oxygen Delivery Method Room Air Room Air Room Air 04/24/24 17:20 04/24/24 17:52 04/25/24 00:00 Temperature 99.1 F 99 F 97.3 F Pulse Rate 96 90 93 Respiratory Rate 14 18 20 Blood Pressure 143/70 H 136/69 149/74 H Pulse Oximetry 99 98 98 Oxygen Delivery Method Room Air Room Air Room Air 04/25/24 03:35 04/25/24 03:36 04/25/24 08:00 Temperature 96.3 F L 96.3 F L 97.2 F Pulse Rate 74 74 82 Respiratory Rate 18 22 H 18 Blood Pressure 142/75 H 142/75 H 153/72 H Pulse Oximetry 97 97 98 Oxygen Delivery Method Room Air Room Air Room Air 04/25/24 11:32 Temperature 97.5 F Pulse Rate 86 Respiratory Rate 16 Blood Pressure 159/74 H Pulse Oximetry 98 Oxygen Delivery Method Room Air BMI result Body Mass Index 21.5 Labs 04/25/24 06:39 04/25/24 06:39 Labs: Laboratory Results - last 48 hr 04/24/24 04/24/24 04/25/24 04:33 13:13 06:39 WBC 5.3 4.7 L RBC 3.32 L 3.29 L Hgb 10.8 L 10.8 L Hct 32.1 L 31.2 L MCV 96.7 94.8 MCH 32.5 32.8 MCHC 33.6 34.6 RDW 13.0 13.2 Plt Count 105 L D 105 L MPV 9.9 9.5 Absolute Nucleated RBC 0.000 0.000 Nucleated RBC % (auto) 0.0 0.0 Sodium 143 143 Potassium 3.7 3.5 Chloride 110 H 107 Carbon Dioxide 20 L 25 Anion Gap 17 15 BUN 9 11 Creatinine 0.70 0.67 Estim Creat Clear Calc 104.0 108.7 Estimated GFR > 60 > 60 Random Glucose 81 81 Calcium 8.1 L D 8.5 Magnesium 1.9 1.9 Ammonia 36 Imaging Radiology Impressions: ITS Impressions Chest X-Ray 04/22/24 18:34 IMPRESSION: Findings as above. Electronically signed by: Torres Rico MD 04/22/2024 09:08 PM EDT Abdomen/Pelvis CT 04/22/24 19:47 IMPRESSION: Right lower lobe dependent alveolar and interstitial infiltrate suggesting pneumonia. Moderate stool throughout the transverse, descending, and sigmoid colon. Small amount of stool and air within the rectal vault. Additional findings as above. Electronically signed by: Torres Rico MD 04/22/2024 10:33 PM EDT RP Mental Status Exam Mental Status Exam Narrative: Patient answers to his name looks up aware he is at [facility]. Mood is flat affect constricted she no gross hallucinations or delusional material elucidated shakes his head when asked about thoughts of harm to himself or others was not aggressive or combative when seen impaired judgment and insight Medications Medications Current Medications Acetaminophen (Acetaminophen 325 Mg Tablet) 650 mg PO Q6H PRN PRN Reason: Pain, Mild (Pain Scale 1-3), fever or headache Acetaminophen (Acetaminophen 325 Mg Tablet) 650 mg PO Q6H PRN PRN Reason: discomfort/temperature above 101 Atorvastatin Calcium (Atorvastatin Calcium 10 Mg Tablet) 10 mg PO DAILY [facility] Last Admin: 04/25/24 08:54 Dose: Not Given Calcium Carbonate (Calcium Carbonate 750 Mg Tab.Chew) 750 mg PO Q4H PRN PRN Reason: Heartburn Clozapine (Clozapine 25 Mg Tablet) 50 mg PO DAILY@1700 [facility] Last Admin: 04/24/24 17:51 Dose: Not Given Clozapine (Clozapine 100 Mg Tablet) 200 mg PO DAILY@1700 [facility] Last Admin: 04/24/24 17:51 Dose: Not Given Docusate Sodium (Docusate Sodium 100 Mg Capsule) 100 mg PO BID [facility] Last Admin: 04/25/24 08:54 Dose: Not Given Enoxaparin Sodium (Enoxaparin Sodium 40 Mg/0.4 Ml Syringe) 40 mg SUBCUT Q24H [facility] Last Admin: 04/25/24 00:08 Dose: 40 mg Fluoxetine HCl (Fluoxetine Hcl 20 Mg Capsule) 40 mg PO DAILY [facility] Last Admin: 04/25/24 08:54 Dose: Not Given Gabapentin (Gabapentin 400 Mg Capsule) 400 mg PO TID [facility] Last Admin: 04/25/24 08:54 Dose: Not Given Glycopyrrolate (Glycopyrrolate 1 Mg Tablet) 2 mg PO BID [facility] Last Admin: 04/25/24 08:54 Dose: Not Given Ampicillin Sodium/Sulbactam (Sodium 3 gm/ Sodium Chloride) 100 mls @ 200 mls/hr IV Q6H [facility] Last Admin: 04/25/24 12:29 Dose: 200 mls/hr Valproic Acid 500 mg/ Dextrose 55 mls @ 55 mls/hr IV BID [facility] Last Infusion: 04/25/24 10:00 Dose: Infused Lorazepam (Lorazepam 0.5 Mg Tablet) 0.5 mg PO DAILY [facility] Last Admin: 04/25/24 08:55 Dose: Not Given Lorazepam (Lorazepam 1 Mg Tablet) 1 mg PO DAILY [facility] Last Admin: 04/25/24 08:55 Dose: Not Given Lorazepam (Lorazepam 2 Mg/Ml Vial) 1 mg IVPUSH Q6H PRN PRN Reason: anxiety/restlessness Last Admin: 04/25/24 08:58 Dose: 1 mg Magnesium Hydroxide (Milk Of Magnesia 30 Ml Oral.Susp) 30 ml PO DAILY PRN PRN Reason: Constipation Magnesium Hydroxide (Milk Of Magnesia 30 Ml Oral.Susp) 30 ml PO DAILY PRN PRN Reason: Constipation Melatonin (Melatonin 3 Mg Tablet) 6 mg PO BEDTIME PRN PRN Reason: Insomnia Naloxone HCl (Naloxone Hcl Nasal 4 Mg [place]) 4 mg NOSTRILALT Q3M PRN PRN Reason: Opioid Overdose Ondansetron HCl (Ondansetron Hcl 4 Mg/2 Ml Vial) 4 mg IVPUSH Q8H PRN PRN Reason: Nausea and Vomiting Polyethylene Glycol (Polyethylene Glycol 3350 17 Gm Powd.Pack) 17 gm PO DAILY [facility] Last Admin: 04/25/24 08:55 Dose: Not Given Sodium Biphosphate/Sodium Phosphate (Sodium Phosphate,[place]-Dibasic 133 Ml Enema) 118 ml [place] DAILY PRN PRN Reason: Constipation Sodium Chloride (0.9 % Sodium Chloride Flush 3 Ml Syringe) 3 ml IVFLUSH QSHIFT [facility] Last Admin: 04/25/24 08:53 Dose: 3 ml Allergies Allergies Allergy/AdvReac Type Severity Reaction Status Date / Time No Known Allergies Allergy Verified 04/22/24 18:51 Assessment & Plan Assessment & Plan (1) Metabolic encephalopathy: Status: Acute Code(s): G93.41 - Metabolic encephalopathy (2) Aspiration pneumonia: Status: Acute Code(s): J69.0 - Pneumonitis due to inhalation of food and vomit (3) Sepsis: Status: Acute Code(s): A41.9 - Sepsis, unspecified organism (4) Vascular dementia of acute onset with behavioral disturbance: Status: Acute Code(s): F01.518 - Vascular dementia, unspecified severity, with other behavioral disturbance (5) Schizoaffective disorder: Status: Acute Code(s): F25.9 - Schizoaffective disorder, unspecified Plan Patient with history of schizoaffective disorder quite severe and dementia was stabilized on clozapine Depakote and in the past ECT would restart clozapine gradually if needed for agitation psychosis could use olanzapine zydis unclear if patient has had reactions to Haldol in the past he reportedly has been cleared for p.o. intake. EKG was unremarkable ANC was 5.1 in an acceptable range for Clozaril use Past records reviewed and records from [facility] also reviewed patient was previously formerly [facility], [facility] Hospital patient Given recent aspiration pneumonia would try to avoid over-sedation Total time managing care of this patient today 45____ minutes. Informed Consent: does not understand
--- NOTE | 2024-04-25 13:07 | P.PNIM_ITS ---
Subjective Subjective Date of Service: 04/25/24 Interval History: He is doing much better today,awake talking, aware of being at [facility], passed swallow eval and will be started on diet Physical Exam 2 Vital Signs: Vital Signs: Last Vital Signs Temp 97.5 F 04/25/24 11:32 Pulse 86 04/25/24 11:32 Resp 16 04/25/24 11:32 BP 159/74 H 04/25/24 11:32 Pulse Ox 98 04/25/24 11:32 O2 Del Method Room Air 04/25/24 11:32 O2 Flow Rate 2 04/22/24 20:23 BMI result Body Mass Index 21.5 Const: Other: General: oriented to self and Place Resp: CTA bilateral CVS: S1,S2,RRR GI: +BS, NT, no distention Skin: No rash Neuro: motor grossly intact Psych: appropriate affect Objective Data Active Medications Acetaminophen (Acetaminophen 325 Mg Tablet) 650 mg PO Q6H PRN PRN Reason: Pain, Mild (Pain Scale 1-3), fever or headache Acetaminophen (Acetaminophen 325 Mg Tablet) 650 mg PO Q6H PRN PRN Reason: discomfort/temperature above 101 Atorvastatin Calcium (Atorvastatin Calcium 10 Mg Tablet) 10 mg PO DAILY [facility] Last Admin: 04/25/24 08:54 Dose: Not Given Documented By: JOANN Non-Admin Reason: Patient Condition Contraindication Calcium Carbonate (Calcium Carbonate 750 Mg Tab.Chew) 750 mg PO Q4H PRN PRN Reason: Heartburn Clozapine (Clozapine 25 Mg Tablet) 50 mg PO DAILY@1700 [facility] Last Admin: 04/24/24 17:51 Dose: Not Given Documented By: NICKI Non-Admin Reason: NPO Clozapine (Clozapine 100 Mg Tablet) 200 mg PO DAILY@1700 [facility] Last Admin: 04/24/24 17:51 Dose: Not Given Documented By: NICKI Non-Admin Reason: NPO Docusate Sodium (Docusate Sodium 100 Mg Capsule) 100 mg PO BID [facility] Last Admin: 04/25/24 08:54 Dose: Not Given Documented By: JOANN Non-Admin Reason: Patient Condition Contraindication Enoxaparin Sodium (Enoxaparin Sodium 40 Mg/0.4 Ml Syringe) 40 mg SUBCUT Q24H [facility] Last Admin: 04/25/24 00:08 Dose: 40 mg Documented By: YESYNando Fluoxetine HCl (Fluoxetine Hcl 20 Mg Capsule) 40 mg PO DAILY [facility] Last Admin: 04/25/24 08:54 Dose: Not Given Documented By: JOANN Non-Admin Reason: Patient Condition Contraindication Gabapentin (Gabapentin 400 Mg Capsule) 400 mg PO TID [facility] Last Admin: 04/25/24 08:54 Dose: Not Given Documented By: JOANN Non-Admin Reason: Patient Condition Contraindication Glycopyrrolate (Glycopyrrolate 1 Mg Tablet) 2 mg PO BID [facility] Last Admin: 04/25/24 08:54 Dose: Not Given Documented By: JOANN Non-Admin Reason: Patient Condition Contraindication Ampicillin Sodium/Sulbactam (Sodium 3 gm/ Sodium Chloride) 100 mls @ 200 mls/hr IV Q6H [facility] Last Admin: 04/25/24 12:29 Dose: 200 mls/hr Documented By: NILES Valproic Acid 500 mg/ Dextrose 55 mls @ 55 mls/hr IV BID [facility] Last Infusion: 04/25/24 10:00 Dose: Infused Documented By: JOANN Lorazepam (Lorazepam 0.5 Mg Tablet) 0.5 mg PO DAILY [facility] Last Admin: 04/25/24 08:55 Dose: Not Given Documented By: JOANN Non-Admin Reason: Patient Condition Contraindication Lorazepam (Lorazepam 1 Mg Tablet) 1 mg PO DAILY [facility] Last Admin: 04/25/24 08:55 Dose: Not Given Documented By: JOANN Non-Admin Reason: Patient Condition Contraindication Lorazepam (Lorazepam 2 Mg/Ml Vial) 1 mg IVPUSH Q6H PRN PRN Reason: anxiety/restlessness Last Admin: 04/25/24 08:58 Dose: 1 mg Documented By: JOANN Magnesium Hydroxide (Milk Of Magnesia 30 Ml Oral.Susp) 30 ml PO DAILY PRN PRN Reason: Constipation Magnesium Hydroxide (Milk Of Magnesia 30 Ml Oral.Susp) 30 ml PO DAILY PRN PRN Reason: Constipation Melatonin (Melatonin 3 Mg Tablet) 6 mg PO BEDTIME PRN PRN Reason: Insomnia Naloxone HCl (Naloxone Hcl Nasal 4 Mg [place]) 4 mg NOSTRILALT Q3M PRN PRN Reason: Opioid Overdose Ondansetron HCl (Ondansetron Hcl 4 Mg/2 Ml Vial) 4 mg IVPUSH Q8H PRN PRN Reason: Nausea and Vomiting Polyethylene Glycol (Polyethylene Glycol 3350 17 Gm Powd.Pack) 17 gm PO DAILY [facility] Last Admin: 04/25/24 08:55 Dose: Not Given Documented By: JOANN Non-Admin Reason: Patient Condition Contraindication Sodium Biphosphate/Sodium Phosphate (Sodium Phosphate,[place]-Dibasic 133 Ml Enema) 118 ml [place] DAILY PRN PRN Reason: Constipation Sodium Chloride (0.9 % Sodium Chloride Flush 3 Ml Syringe) 3 ml IVFLUSH QSHIFT [facility] Last Admin: 04/25/24 08:53 Dose: 3 ml Documented By: JOANN Labs 04/25/24 06:39 04/25/24 06:39 Labs: Laboratory Results - last 24 hr 04/24/24 04/25/24 13:13 06:39 MCV 94.8 MCH 32.8 MCHC 34.6 RDW 13.2 Plt Count 105 L MPV 9.5 Absolute Nucleated RBC 0.000 Nucleated RBC % (auto) 0.0 Anion Gap 15 Estim Creat Clear Calc 108.7 Estimated GFR > 60 Random Glucose 81 Calcium 8.5 Magnesium 1.9 Ammonia 36 Microbiology Microbiology Results: Microbiology 04/22/24 20:09 Blood Culture - Preliminary Blood - Venous No growth after 48 hours. 04/22/24 19:06 Blood Culture - Preliminary Blood - Venous No growth after 48 hours. Assessment and Plan (1) COVID-19: Status: Acute (2) Aspiration pneumonia: Status: Acute (3) Sepsis: Status: Acute (4) Metabolic encephalopathy: Status: Acute Plan 69/m with htn, \ mood disorder, vascular dementia with behavioral disturbance, seizure disorder, mixed hyperlipidemia who was sent to the emergency department for evaluation of fevers and altered mentation. Sepsis d/t aspiration PNA and UTI--sepsis resolved -continue Unasyn started 04/22 - cultures so far negative. -PRINTING ESTIMATOR eval recommend NDD3 and thin liquid Metabolic encephalopathy d/t above, better -treat underlying issues as above Psychosis w/ underlying dementia -Psych to help with med management , -has been off Clozaril for more than 48 hous -Psych will help restart this Mood disorder/vascular dementia with behavioral disturbance -on Olanzapine, depakote, ativan, fluoxetine but not taking PO -Psych consult as above COVID-19 infection with superimpose bacterial PNA, no hypoxia -conservative management seizure d/o--depakote, changed to IV, once eating can change back to PO Anemia--acute drop yesterday probably dilurtional, H/H is stable Thrombocytopenia--stable FEN: on LR, once eating dc LR DVT prophylaxis with Lovenox Full code need for inpt: IV Abx for sesis, pna and uti Quality Stroke Does the patient have a stroke diagnosis?: No VTE Prior VTE?: No VTE Risk Level:: Medical - moderate - high VTE Device Contraindication: Treatment Not Indicated VTE Drug Contraindication: N/A - Med Ordered
--- NOTE | 2024-04-25 14:19 | MHC.SL.SWA ---
Speech Pathologist Impression: Risk of Aspiration Due to: Lethargy Neurological Condition Poor PO Intake Reduced Cognition Dysphasia Diet Status: Liquid Consistency and Strategies for Safe Swallow: Liquid Intake Recommendation: Thin Liquid Intake Strategies: Small Sips Solid Food Consistency: Dietary Recommendations: Chopped/Advanced (NDD3) Oral Medication Intake: Whole with Puree Please contact the pharmacy regarding appropriate crushable or liquid drug formulations that are available whenever modified delivery is recommended. Compensatory Strategies and Precautions to be Taken for Safe Swallow: Sitting Upright (90 deg) Liquids from Straw Alternate Liquids/Solids Rate of Ingestion Change Avoid Specific Foods Supervision While Eating and Drinking for Safe Swallow: Total Assistance (1:1) Foods to Avoid: [place] hard, chewy foods. Swallowing Recommended Treatments: Compens. Strategy Educat. Recommendation for Speech: Inpatient Speech Therapy Frequency/Duration: Daily Date Range for Service Req: Admission-Discharge Timeline to reassess: PRN Mis Director Clinican/Clinical Fellow: No Supervisory Statement: I have reviewed and agree with the student/clinical fellow's documentation: N/A Speech Language Pathologist: Kennedy Padilla M.A., CCC-GRIEVANCE MANAGER
[2024-04-25] MEDS: Gabapentin 400 MG CAPSULE PO ×2 (15:41→22:02)
[2024-04-25] MEDS: Valproic Acid (as Sodium Salt) 500 MG in Dextrose 5 % 50 ML 55 MG IV (21:55)
[2024-04-25] MEDS: Docusate Sodium 100 MG CAPSULE PO (22:01)
[2024-04-25] MEDS: cloZAPine 25 MG TABLET PO (22:01)
[2024-04-25] MEDS: Glycopyrrolate 1 MG TABLET 2 MG PO (22:02)
[2024-04-26] VITALS (7 sets, daily range): BP systolic 110–151; BP diastolic 57–70; PULSE 67–80; RESP 18–20; TEMP 36–37.1; O2SAT 95–99
[2024-04-26] MEDS: Ampicillin Sodium/Sulbactam Na 3 GM in 0.9 % Sodium Chloride 100 ML IV ×4 (05:42→23:09)
[2024-04-26 07:35] LABS: Hematocrit 31.8 % (42.0-52.0); Hemoglobin 11.2 g/dl (14.0-18.0); Mean Corpuscular HGB Conc 35.2 g/dl (31.0-36.0); Mean Corpuscular Hemoglobin 33.3 pg (27.0-33.0); Mean Corpuscular Volume 94.6 fL (80.0-98.0); Platelet Count 117 X10*3/uL (160-400); Red Blood Count 3.36 X10*6/uL (4.60-5.80); Red Cell Distribution Width 13.3 % (11.0-16.0); White Blood Count 4.5 X10*3/uL (4.8-10.8)
[2024-04-26 07:48] LABS: Anion Gap 12 (12-20); Blood Urea Nitrogen 16 mg/dL (9-16); Calcium 8.4 mg/dL (8.4-10.2); Carbon Dioxide 27 mmol/L (22-29); Chloride 108 mmol/L (96-108); Creatinine Clr Calc Pharmacy 102.5; Estimated Glomerular Filt Rate > 60; Glucose Random 108 mg/dL (60-115); Potassium 3.4 mmol/L (3.3-5.1); Sodium 144 mmol/L (135-145)
[2024-04-26] MEDS: Glycopyrrolate 1 MG TABLET 2 MG PO ×2 (09:03→21:24)
[2024-04-26] MEDS: Docusate Sodium 100 MG CAPSULE PO ×2 (09:03→21:24)
[2024-04-26] MEDS: FLUoxetine HCl 20 MG CAPSULE 40 MG PO (09:03)
[2024-04-26] MEDS: LORazepam 0.5 MG TABLET PO (09:03)
[2024-04-26] MEDS: Gabapentin 400 MG CAPSULE PO ×3 (09:03→21:24)
[2024-04-26] MEDS: polyethylene glycoL 3350 17 GM POWD.PACK PO (09:03)
[2024-04-26] MEDS: LORazepam 1 MG TABLET PO (09:03)
[2024-04-26] MEDS: Atorvastatin Calcium 10 MG TABLET PO (09:03)
[2024-04-26] MEDS: 0.9 % Sodium Chloride Flush 3 ML SYRINGE IVFLUSH ×2 (09:03→17:26)
[2024-04-26] MEDS: Valproic Acid (as Sodium Salt) 500 MG in Dextrose 5 % 50 ML 55 MG IV (09:07)
--- NOTE | 2024-04-26 11:24 | HO.PM.IMPN ---
Subjective Subjective Date of Service: 04/26/24 Interval History: Patient continues to be without agitation, cooperative. Physical Exam Vital Signs: Vital Signs: Last Vital Signs Temp 97 F 04/26/24 07:58 Pulse 67 04/26/24 07:58 Resp 18 04/26/24 07:58 BP 138/70 04/26/24 07:58 Pulse Ox 99 04/26/24 07:58 O2 Del Method Room Air 04/26/24 07:58 O2 Flow Rate 2 04/22/24 20:23 BMI result Body Mass Index 21.5 Const: Other: General: oriented to self and Place Resp: CTA bilateral CVS: S1,S2,RRR GI: +BS, NT, no distention Skin: No rash Neuro: motor grossly intact Psych: appropriate affect Objective Data Active Medications Acetaminophen (Acetaminophen 325 Mg Tablet) 650 mg PO Q6H PRN PRN Reason: Pain, Mild (Pain Scale 1-3), fever or headache Acetaminophen (Acetaminophen 325 Mg Tablet) 650 mg PO Q6H PRN PRN Reason: discomfort/temperature above 101 Atorvastatin Calcium (Atorvastatin Calcium 10 Mg Tablet) 10 mg PO DAILY [facility] Last Admin: 04/26/24 09:03 Dose: 10 mg Documented By: JOANN Calcium Carbonate (Calcium Carbonate 750 Mg Tab.Chew) 750 mg PO Q4H PRN PRN Reason: Heartburn Clozapine (Clozapine 25 Mg Tablet) 25 mg PO BEDTIME [facility] Last Admin: 04/25/24 22:01 Dose: 25 mg Documented By: NILES Docusate Sodium (Docusate Sodium 100 Mg Capsule) 100 mg PO BID [facility] Last Admin: 04/26/24 09:03 Dose: 100 mg Documented By: JOANN Enoxaparin Sodium (Enoxaparin Sodium 40 Mg/0.4 Ml Syringe) 40 mg SUBCUT Q24H [facility] Last Admin: 04/25/24 23:04 Dose: 40 mg Documented By: NILES Fluoxetine HCl (Fluoxetine Hcl 20 Mg Capsule) 40 mg PO DAILY [facility] Last Admin: 04/26/24 09:03 Dose: 40 mg Documented By: JOANN Gabapentin (Gabapentin 400 Mg Capsule) 400 mg PO TID [facility] Last Admin: 04/26/24 09:03 Dose: 400 mg Documented By: JOANN Glycopyrrolate (Glycopyrrolate 1 Mg Tablet) 2 mg PO BID [facility] Last Admin: 10/02/24 09:03 Dose: 2 mg Documented By: JOANN Ampicillin Sodium/Sulbactam (Sodium 3 gm/ Sodium Chloride) 100 mls @ 200 mls/hr IV Q6H [facility] Last Infusion: 04/26/24 06:20 Dose: Infused Documented By: MARCEL Valproic Acid 500 mg/ Dextrose 55 mls @ 55 mls/hr IV BID [facility] Last Infusion: 04/26/24 10:38 Dose: Infused Documented By: JOANN Lorazepam (Lorazepam 0.5 Mg Tablet) 0.5 mg PO DAILY [facility] Last Admin: 04/26/24 09:03 Dose: 0.5 mg Documented By: JOANN Lorazepam (Lorazepam 1 Mg Tablet) 1 mg PO DAILY [facility] Last Admin: 04/26/24 09:03 Dose: 1 mg Documented By: JOANN Lorazepam (Lorazepam 2 Mg/Ml Vial) 1 mg IVPUSH Q6H PRN PRN Reason: anxiety/restlessness Last Admin: 04/25/24 08:58 Dose: 1 mg Documented By: JOANN Magnesium Hydroxide (Milk Of Magnesia 30 Ml Oral.Susp) 30 ml PO DAILY PRN PRN Reason: Constipation Magnesium Hydroxide (Milk Of Magnesia 30 Ml Oral.Susp) 30 ml PO DAILY PRN PRN Reason: Constipation Melatonin (Melatonin 3 Mg Tablet) 6 mg PO BEDTIME PRN PRN Reason: Insomnia Naloxone HCl (Naloxone Hcl Nasal 4 Mg [place]) 4 mg NOSTRILALT Q3M PRN PRN Reason: Opioid Overdose Ondansetron HCl (Ondansetron Hcl 4 Mg/2 Ml Vial) 4 mg IVPUSH Q8H PRN PRN Reason: Nausea and Vomiting Polyethylene Glycol (Polyethylene Glycol 3350 17 Gm Powd.Pack) 17 gm PO DAILY [facility] Last Admin: 04/26/24 09:03 Dose: 17 gm Documented By: JOANN Sodium Biphosphate/Sodium Phosphate (Sodium Phosphate,[place]-Dibasic 133 Ml Enema) 118 ml [place] DAILY PRN PRN Reason: Constipation Sodium Chloride (0.9 % Sodium Chloride Flush 3 Ml Syringe) 3 ml IVFLUSH QSHIFT [facility] Last Admin: 04/26/24 09:03 Dose: 3 ml Documented By: JOANN Labs 04/26/24 07:07 04/26/24 07:07 Labs: Laboratory Results - last 24 hr 04/26/24 07:07 MCV 94.6 MCH 33.3 H MCHC 35.2 RDW 13.3 Plt Count 117 L MPV 9.0 L Absolute Nucleated RBC 0.000 Nucleated RBC % (auto) 0.0 Anion Gap 12 Estim Creat Clear Calc 102.5 Estimated GFR > 60 Random Glucose 108 Calcium 8.4 Magnesium 2.0 Assessment and Plan (1) COVID-19: Status: Acute (2) Aspiration pneumonia: Status: Acute (3) Sepsis: Status: Acute (4) Metabolic encephalopathy: Status: Acute Plan 69/m with htn, \ mood disorder, vascular dementia with behavioral disturbance, seizure disorder, mixed hyperlipidemia who was sent to the emergency department for evaluation of fevers and altered mentation. Sepsis d/t aspiration PNA and UTI--sepsis resolved -continue Unasyn started 04/22, change to Augmentin - cultures so far negative at 48 hrs -ENTRY LEVEL MARKETING REPRESENTATIVE eval recommend NDD3 and thin liquid Metabolic encephalopathy d/t above, resolved. -treat underlying issues as above Psychosis w/ underlying dementia -Psych to help with med management , -has been off Clozaril, restarted at lower dose -Psych will help restart this Mood disorder/vascular dementia with behavioral disturbance -on Olanzapine, depakote (change back to PO), ativan, fluoxetine but not taking PO -Psych consult as above COVID-19 infection with superimpose bacterial PNA, no hypoxia -conservative management seizure d/o--depakote, changed to IV, once eating can change back to PO Anemia--acute drop yesterday probably dilurtional, H/H is stable Thrombocytopenia--better FEN: on LR, once eating dc LR DVT prophylaxis with Lovenox Full code need for inpt: IV Abx for sesis, pna and uti Quality Stroke Does the patient have a stroke diagnosis?: No VTE Prior VTE?: No VTE Risk Level:: Medical - moderate - high VTE Device Contraindication: Treatment Not Indicated VTE Drug Contraindication: N/A - Med Ordered
--- NOTE | 2024-04-26 14:13 | MHC.CM.PN ---
Per rounds, pt is improving, still needs treatment with IV ABX for UTI, sepsis, and pneumonia. DCP is for pt to return to [facility] where he resides LTC, update clinical sent via care port.
--- NOTE | 2024-04-26 14:20 | MHC.SL.SWA ---
Speech Pathologist Impression: Mild oral dysphagia d/t missing dentition, mild pharyngeal dysphagia d/t weakness Risk of Aspiration Due to: Weakness Neurological Condition Poor PO Intake Reduced Cognition Dysphasia Diet Status: Liquid Consistency and Strategies for Safe Swallow: Liquid Intake Recommendation: Thin Liquid Intake Strategies: Small Sips Solid Food Consistency: Dietary Recommendations: Chopped/Advanced (NDD3) Additional Modifications to Solid Foods: Oral Medication Intake: Whole with Puree Please contact the pharmacy regarding appropriate crushable or liquid drug formulations that are available whenever modified delivery is recommended. Compensatory Strategies and Precautions to be Taken for Safe Swallow: Sitting Upright (90 deg) Liquids from Straw Alternate Liquids/Solids Rate of Ingestion Change Avoid Specific Foods Supervision While Eating and Drinking for Safe Swallow: Total Assistance (1:1) Foods to Avoid: [place] hard, chewy foods. Swallowing Recommended Treatments: Compens. Strategy Educat. Recommendation for Speech: Inpatient Speech Therapy Comment: Pt resuming PO diet without overt s/s of aspiration or persisting dysphagia, mild oral phase dysphagia d/t missing teeth and mild pharyngeal phase dysphagia d/t weakness evident, with 1:1 supervision and full assist to eat, pt tolerating least restrictive diet well. ST to follow inpatient, continued need for SWIMMING POOL INSTALLER intervention upon d/c TBD. Frequency/Duration: Daily Date Range for Service Req: Admission-Discharge Timeline to reassess: PRN Receiving Coordinator Clinican/Clinical Fellow: No Supervisory Statement: I have reviewed and agree with the student/clinical fellow's documentation: N/A Speech Language Pathologist: Radha Vogt M.S. [facility]-SWIMMING POOL INSTALLER
[2024-04-26] MEDS: Lactated Ringers 1,000 ML 100 ML IVCONT (18:32)
--- NOTE | 2024-04-26 19:49 | PM.EVENT ---
Event Note Date of Service: 04/26/24 Event Note: increase clozapine to 50 mg ck cbc and anc given recent infection see contreras order Time Spent With Patient Time: Total time managing care of this patient today ___ minutes.
[2024-04-26 20:28] LABS: MANUAL DIFF FLAG NO
[2024-04-26 20:34] LABS: Basophils Percent Auto 0.2 % (0-2); Hematocrit 31.7 % (42.0-52.0); Hemoglobin 11.2 g/dl (14.0-18.0); Imm Gran Abs Auto 0.04 X10*3/uL (0.00-0.03); Imm Gran Pct Auto 0.7 % (0.0-0.4); Lymphocytes Percent Auto 34.2 % (20-40); Mean Corpuscular HGB Conc 35.3 g/dl (31.0-36.0); Mean Corpuscular Hemoglobin 33.4 pg (27.0-33.0); Mean Corpuscular Volume 94.6 fL (80.0-98.0); Mean Platelet Volume 9.4 fL (9.4-12.4); Monocytes Absolute Auto 0.5 X10*3/uL (0.1-1.2); Monocytes Percent Auto 9.4 % (2-11); Neutrophils Absolute Auto 3.2 x10*3/uL (2.0-8.3); Neutrophils Percent Auto 55.5 % (45-73); Platelet Count 145 X10*3/uL (160-400); Red Blood Count 3.35 X10*6/uL (4.60-5.80); Red Cell Distribution Width 13.4 % (11.0-16.0); White Blood Count 5.8 X10*3/uL (4.8-10.8)
[2024-04-26] MEDS: cloZAPine 25 MG TABLET 50 MG PO (21:24)
[2024-04-26] MEDS: Divalproex Sodium 500 MG TABLET.DR PO (21:24)
[2024-04-26] MEDS: Enoxaparin Sodium 40 MG/0.4 ML SYRINGE SUBCUT (23:09)
[2024-04-27 03:22] VITALS: BP 121/60; PULSE 93; RESP 20; TEMP 36.6; O2SAT 96
[2024-04-27] MEDS: Lactated Ringers 1,000 ML 100 ML IVCONT (04:16)
[2024-04-27] MEDS: Ampicillin Sodium/Sulbactam Na 3 GM in 0.9 % Sodium Chloride 100 ML IV ×3 (04:16→16:09)
[2024-04-27 07:57] VITALS: BP 132/66; PULSE 69; RESP 18; TEMP 36.3; O2SAT 94
[2024-04-27] MEDS: Divalproex Sodium 500 MG TABLET.DR PO (08:56)
[2024-04-27] MEDS: LORazepam 1 MG TABLET PO (08:56)
[2024-04-27] MEDS: Docusate Sodium 100 MG CAPSULE PO (08:56)
[2024-04-27] MEDS: FLUoxetine HCl 20 MG CAPSULE 40 MG PO (08:57)
[2024-04-27] MEDS: Glycopyrrolate 1 MG TABLET 2 MG PO (08:57)
[2024-04-27] MEDS: LORazepam 0.5 MG TABLET PO (08:57)
[2024-04-27] MEDS: Atorvastatin Calcium 10 MG TABLET PO (08:57)
[2024-04-27] MEDS: Gabapentin 400 MG CAPSULE PO ×2 (08:57→16:09)
[2024-04-27] MEDS: polyethylene glycoL 3350 17 GM POWD.PACK PO (09:24)
--- NOTE | 2024-04-27 09:54 | MHC.SL.SWA ---
Speech Pathologist Impression: Risk of Aspiration Due to: Lethargy Neurological Condition Poor PO Intake Reduced Cognition Dysphasia Diet Status: Recommend continue on Chopped/Advanced with THIN liquids (straw o.k.) with pills whole in puree or with liquid. Patient requires 1-1 feed, is tolerating this diet well. Liquid Consistency and Strategies for Safe Swallow: Liquid Intake Recommendation: Thin Liquid Intake Strategies: Small Sips Solid Food Consistency: Dietary Recommendations: Chopped/Advanced (NDD3) Additional Modifications to Solid Foods: Oral Medication Intake: Whole with Puree Please contact the pharmacy regarding appropriate crushable or liquid drug formulations that are available whenever modified delivery is recommended. Compensatory Strategies and Precautions to be Taken for Safe Swallow: Sitting Upright (90 deg) Liquids from Straw Alternate Liquids/Solids Rate of Ingestion Change Avoid Specific Foods Supervision While Eating and Drinking for Safe Swallow: Total Assistance (1:1) Foods to Avoid: [place] hard, chewy foods. Swallowing Recommended Treatments: Compens. Strategy Educat. Recommendation for Speech: Inpatient Speech Therapy Comment: Patient seen at Breakfast this morning, which was in room but cold, as nurses had been busy cleaning up. 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 Patient tolerated bites of chopped pancake and scrambled egg, with slow rate of mastication and some residual noted after swallow. Patient initially tolerated taking sips of liquid periodically at start of meal. Patient took sips by straw, managed timing well and demonstrated no clinical signs of aspiration. As meal progressed, patient refused all liquids, but continued with solids. On tray was chopped sausage with skins evident. It was noted on this texture, patient had some increased difficulty orally managing the texture and had a piece meal swallow. Due to noted increased difficulty sausages were avoided. Recommend continue on Chopped/Advanced with THIN liquids (straw o.k.) with pills whole in puree or with liquid. Patient requires 1-1 feed, is tolerating this diet well. Frequency/Duration: Daily Date Range for Service Req: Admission-Discharge Timeline to reassess: PRN Classification Officer Clinican/Clinical Fellow: No Supervisory Statement: I have reviewed and agree with the student/clinical fellow's documentation: N/A Speech Language Pathologist: Radha Vogt M.S. [facility]-[employer]OFESSIONAL SOCCER PLAYER
[2024-04-27 11:25] VITALS: BP 106/57; PULSE 71; RESP 18; TEMP 36.4; O2SAT 97
--- NOTE | 2024-04-27 12:36 | P.DS_ITS ---
DS: Providers Provider Date of Service: 04/27/24 Date of admission: 04/22/24 22:50 Date of discharge: 04/27/24 Primary care physician: ARMANDO MERCER Consults: 04/24/24 08:52 Consult to Psychiatry Routine Consulting Provider: Psych Covering Reason for consultation: Acute Psychosis Has provider been notified: No Attending physician on discharge: Endy Wolff Discharging clinician: Kath De La Rosa DS: Diagnosis Discharge Diagnosis (1) COVID-19: Status: Acute (2) Aspiration pneumonia: Status: Acute (3) Sepsis: Status: Acute (4) Metabolic encephalopathy: Status: Acute DS: Summary Hospital Course Hospital Course: From H&P on the day of admission This is a 69-year-old male with pertinent history of hypertension, mood disorder, vascular dementia with behavioral disturbance, seizure disorder, mixed hyperlipidemia who was sent to the emergency department for evaluation of fevers and altered mentation. Patient is drowsy at the time of my evaluation, is only eye opening to verbal stimulus. Unable to obtain history from the patient. Unknown baseline mentation. History obtained with the help of ER provider and chart review. In the emergency department, patient was found to be septic and imaging with right lower lobe infiltrate. Vomitus noted around mouth, concerning for aspiration. Urine concerning for UTI. Unable to obtain review of systems. In the emergency department, patient was resuscitated with IV crystalloids and given empiric IV antibiotics Sepsis d/t aspiration PNA and UTI--sepsis resolved Treated with IV Unasyn started 04/22, change to Augmentin to complete course upon discharge. Has remained afebrile, no leukocytosis. Blood cultures negative to date. seen by SOCIAL MEDIA COMMUNITY MANAGER eval recommend NDD3 and thin liquids which he is tolerating Metabolic encephalopathy d/t above, resolved. Psychosis w/ underlying dementia Psych was consulted to help with med management , has been off Clozaril due to encephalopathy and inability to take p.o.. Was restarted at lower dose - we will need to increase by 25 mg daily (plan for 75 mg 04/27) until reach previous dose Mood disorder/vascular dementia with behavioral disturbance on Olanzapine, depakote, ativan, fluoxetine COVID-19 infection with superimpose bacterial PNA, no hypoxia. on room air Constipation Noted to have constipation on imaging Has been having bowel movements. Recommend routine bowel regimen to prevent recurrent constipation Urinary retention [place] catheter was placed, removed 04/26. Able to void independently, likely due to above constipation Time Attestation Discharge Coordination Time (in mins): 40 Quality: Safe Use of Opioids Does Pt have an Active Cancer Diagnosis on the Problem List?: No Quality: Stroke Does the patient have a stroke diagnosis?: No Physical Exam Vital Signs: Vital Signs: Last Vital Signs Temp 97.5 F 04/27/24 11:25 Pulse 71 04/27/24 11:25 Resp 18 04/27/24 11:25 BP 106/57 L 04/27/24 11:25 Pulse Ox 97 04/27/24 11:25 O2 Del Method Room Air 04/27/24 11:25 O2 Flow Rate 0 04/27/24 03:22 BMI result Body Mass Index 21.5 Const: General: cooperative, comfortable, no acute distress, alert and awake Nutritional Appearance: average body habitus Resp: Effort & Inspection: normal respiratory effort and able to speak in complete sentences Cardio: Rate: regular rate Psych: Other: Flat affect DS: Data Data Completed and Pending Labs on day of discharge: Laboratory Results - last 24 hr 04/26/24 20:17 WBC 5.8 RBC 3.35 L Hgb 11.2 L Hct 31.7 L MCV 94.6 MCH 33.4 H MCHC 35.3 RDW 13.4 Plt Count 145 L MPV 9.4 Immature Gran % (Auto) 0.7 H Neut % (Auto) 55.5 Lymph % (Auto) 34.2 [place] % (Auto) 9.4 Eos % (Auto) 0.0 Baso % (Auto) 0.2 Lymph # (Auto) 2.0 [place] # (Auto) 0.5 Eos # (Auto) 0.0 Baso # (Auto) 0.0 Abs Immat Gran (auto) 0.04 H Absolute Neuts (auto) 3.2 Absolute Nucleated RBC 0.000 Nucleated RBC % (auto) 0.0 Preliminary micro results at discharge 04/22/24 20:09 Blood Culture - Preliminary Blood - Venous No growth after 48 hours. 04/22/24 19:06 Blood Culture - Preliminary Blood - Venous No growth after 48 hours. Discharge Plan Discharge Patient Disposition: er [facility] Discharge Diagnosis: Pneumonia due to aspiration and COVID-19 Toxic metabolic encephalopathy Urinary retention Constipation Referrals: ARMANDO MERCER [Primary Care Provider] - 1 Week Discharge Medications: New amoxicillin-pot clavulanate 875-125 mg tablet 1 tab PO Q12H 2 Days Qty: 4 0RF Continued lorazepam 0.5 mg Tablet 0.5 mg PO DAILY lorazepam 2 mg Tablet 2 mg PO Q14D PRN (Reason: Anxiety) Rx Instructions: 90 minutes prior to transport for ECT lorazepam 1 mg Tablet 1 mg PO DAILY atorvastatin 10 mg Tablet 10 mg PO DAILY divalproex 500 mg Tablet Extended Release 24 Hr 500 mg PO BID glycopyrrolate 2 mg Tablet 2 mg PO BID acetaminophen 325 mg Tablet 650 mg PO Q6H PRN (Reason: discomfort/temperature above 101) acetaminophen 650 mg Suppository 650 mg MD Q6H PRN (Reason: discomfort/temperature above 101) gabapentin 400 mg Capsule 400 mg PO TID magnesium hydroxide [Milk of Magnesia] 400 mg/5 mL Suspension 30 ml PO DAILY PRN (Reason: Constipation) fluoxetine 20 mg Tablet 40 mg PO DAILY Fleet Enema 19-7 gram/118 mL Enema 118 ml MD DAILY PRN (Reason: Constipation) docusate sodium 100 mg Capsule 100 mg PO BID naloxone 4 mg/actuation [place],Non-Aerosol 4 mg INTRANASAL Q3M PRN (Reason: Opioid Overdose) Rx Instructions: spray 1 dose into ONE nostril; alternate nostrils w each dose until help arrives Changed polyethylene glycol 3350 17 gram Powder In Packet 17 g PO BID Qty: 14 0RF Held clozapine 100 mg Tablet 200 mg PO DAILY@1700 Hold Instructions: See dosing recommendations on discharge clozapine 25 mg Tablet 50 mg PO DAILY@1700 Hold Instructions: See Clozaril dosing on discharge instructions Discharge Orders: Discharge Order (Routine); Ordered 04/27/24 Ordered By: Kath De La Rosa Activity on Discharge: As tolerated Stand Alone Forms: Patient Portal Discharge page Print Language: [place] Citizen Care Plan Goals: See below Health Concerns: Pneumonia due to aspiration and COVID-19 Urinary retention -resolved Constipation-resolved Plan of Treatment: Complete 2 more days of antibiotics for pneumonia Increase MiraLax to twice daily to prevent recurrence of constipation. Monitor for bowel movements Urinary retention resolved, likely due to constipation Dose of Clozaril was interrupted due to encephalopathy, should receive 75 mg this evening and then increase by 25 mg daily until reaching previous dose - recommend ongoing psychiatric follow-up and increasing dose as tolerated as per psych recommendation Due to aspiration pneumonia, should continue following with speech therapy. Current recommended diet chopped/advanced (NDD3) with thin liquids, pills whole in puree or with liquid. Requires one-to-one feeds. Assessment: See discharge summary
--- NOTE | 2024-04-27 13:29 | MHC.CM.PN ---
Second IMM, discussed with guardian on the phone, pt has been medically cleared for DC, he will return to [facility] today Via BLS.
--- NOTE | 2024-04-27 17:39 | PC.NURSE ---
Pts port de-accessed before d/c. heparin flush per orders before d/c. IV in right AC removed as well with catheter tip intact, no s/s infection or bleeding noted. Pt [email or web address] back to [facility] [place]. Report given to NORBERT.
== END 2024-04-27 17:43 | DRG 871 ==
LOC: HO.ED 22:55 → HO.EDOVER 23:01 → HO.IMC 04-24 17:32
PROVIDERS: Internal Medicine; Physician Assistant Medical; Psychiatry & Neurology Psychiatry; Admitting Provider Student in an Organized Health Care Education/Training Program; Emergency Provider Emergency Medicine; PCP Emergency Medicine; Visit Provider Physician Assistant Medical
DX: A41.9 Sepsis, unspecified organism (principal); G92.8 Other toxic encephalopathy; J12.82 Pneumonia due to coronavirus disease 2019; J69.0 Pneumonitis due to inhalation of food and vomit; U07.1 COVID-19; J15.9 Unspecified bacterial pneumonia; F01.518 Vascular dementia, unspecified severity, with other behavioral disturbance; N39.0 Urinary tract infection, site not specified; K59.00 Constipation, unspecified; F25.9 Schizoaffective disorder, unspecified; D69.6 Thrombocytopenia, unspecified; G40.909 Epilepsy, unspecified, not intractable, without status epilepticus; Z91.148 Patient's other noncompliance with medication regimen for other reason; Z78.1 Physical restraint status; Z79.899 Other long term (current) drug therapy
CPT/HCPCS: 0241U; 36415; 71045; 74177; 80048; 80076; 81001; 82140; 82803; 82947; 83605; 83690; 83735; 84484; 85025; 85027; 85610; 87040; 87086; 92526; 92610; 93005; 99285; C1758; J0131; J0295; J0696; J1642; J1650; J1885; J2060; J2359; J7120; P9047; Q9967

== ENCOUNTER → 2024-04-22 22:50 | Outpatient (BNV) | payer MEDICARE, MEDICAID, SELFPAY | PROVIDERS: Admitting Provider Student in an Organized Health Care Education/Training Program; Emergency Provider Emergency Medicine; PCP Emergency Medicine; Visit Provider Psychiatry & Neurology Psychiatry | DX: F25.9 Schizoaffective disorder, unspecified (principal); F01.518 Vascular dementia, unspecified severity, with other behavioral disturbance; G93.41 Metabolic encephalopathy; J69.0 Pneumonitis due to inhalation of food and vomit; A41.9 Sepsis, unspecified organism | CPT/HCPCS: 99232; 99499 ==

== ENCOUNTER → 2024-04-22 22:50 | Outpatient (BNV) | payer MEDICARE, MEDICAID, SELFPAY | PROVIDERS: Admitting Provider Student in an Organized Health Care Education/Training Program; Emergency Provider Emergency Medicine; PCP Emergency Medicine; Visit Provider Student in an Organized Health Care Education/Training Program | DX: U07.1 COVID-19 (principal); J69.0 Pneumonitis due to inhalation of food and vomit; A41.9 Sepsis, unspecified organism; G93.41 Metabolic encephalopathy | CPT/HCPCS: 99223; 99232; 99239 ==